=== PATIENT | female | born 1940 | race Caucasian/White ===

== ENCOUNTER 2023-03-02 08:21 | Outpatient (OUT) | payer MEDICARE, SELFPAY ==
[2023-03-02 08:51] LABS: Basophils Percent Auto 0.5 % (0.2-2.0); Eosinophils Absolute Auto 0.1 10^3/uL (0.0-0.7); Eosinophils Percent Auto 2.2 % (0.9-7.0); Hematocrit 39.8 % (36.0-48.0); Hemoglobin 13.1 g/dL (12.0-16.0); Immature Granulocytes Abs Auto 0.03 10^3/uL (0.00-0.03); Immature Granulocytes Pct Auto 0.5 % (0.0-0.5); Lymphocytes Absolute Auto 1.7 10^3/uL (1.2-3.8); Lymphocytes Percent Auto 29.2 % (20.5-60.0); Mean Corpuscular HGB Conc 32.9 g/dL (29.9-35.2); Mean Corpuscular Hemoglobin 31.4 pg (26.7-34.0); Mean Corpuscular Volume 95.4 fL (81.0-99.0); Mean Platelet Volume 9.2 fL (9.5-13.5); Monocytes Absolute Auto 0.4 10^3/uL (0.3-0.8); Monocytes Percent Auto 6.5 % (1.7-12.0); Neutrophils Absolute Auto 3.6 10^3/uL (1.4-6.5); Neutrophils Percent Auto 61.1 % (43.0-75.0); Platelet Count 237 10^3/uL (150-450); Red Blood Count 4.17 10^6/uL (4.20-5.40); Red Cell Distribution Width 11.9 % (11.0-15.0); White Blood Count 5.9 10^3/uL (4.0-11.0)
[2023-03-02 10:54] LABS: Microalbumin Urine Random <1.3 mg/dL (<=30.0)
[2023-03-02 12:14] LABS: Alanine Aminotransferase 21 U/L (14-59); Albumin Globulin Ratio 1.1; Albumin Level 3.8 g/dL (3.4-5.0); Alkaline Phosphatase 51 U/L (46-116); Anion Gap 10.9; Aspartate Amino Transferase 13 U/L (15-37); BUN Creatinine Ratio 28.2; Bilirubin Total 0.3 mg/dL (0.2-1.0); Calcium 10.3 mg/dL (8.5-10.1); Carbon Dioxide 30.9 mmol/L (21.0-32.0); Chloride 102 mmol/L (98-107); Chol HDL Ratio 3.2; Cholesterol 142 mg/dL (<=200); Estimated GFR (African America >60 (>=60); Estimated GFR (Non-African Ame >60 (>=60); Globulin 3.6 g/dL; Glucose 104 mg/dL (74-106); HDL Cholesterol 45 mg/dL (40-60); Potassium 4.8 mmol/L (3.5-5.1); Sodium 139 mmol/L (136-145); Total Protein 7.4 g/dL (6.4-8.2); Triglycerides 120 mg/dL (<=150)
[2023-03-02 13:25] LABS: Estimated Average Glucose 100 mg/dL; Glycohemoglobin A1C 5.1 % (4.5-6.2)
== END 2023-03-02 08:22 | disposition home or self-care (01) ==
LOC: LAB 08:21
PROVIDERS: PCP Internal Medicine; Visit Provider Internal Medicine
DX: E11.65 Type 2 diabetes mellitus with hyperglycemia (principal); E78.00 Pure hypercholesterolemia, unspecified; I10 Essential (primary) hypertension; E06.3 Autoimmune thyroiditis
CPT/HCPCS: 36415; 80053; 80061; 82043; 83036; 84443; 85025

== ENCOUNTER 2023-06-07 11:21 | Outpatient (OUT) | payer MEDICARE, SELFPAY ==
--- OUTSIDE RECORDS SUMMARY | 2023-06-07 11:24 | XMS_ITS | CCD ---
Author Name Unknown Address [address] [place] [address] Organization [facility] Care Team Providers Care Keg Washer Name Role Phone Unavailable Primary Care Provider UnavailSidney Ibrahim DO Primary Care Provider [phone] [place] Unavailable Sidney Moore DO Primary Care Provider JUS BLANK Admitting Unavailable ABHAY, JUS Price Attending Unavailable SIDNEY MOORE Primary Care Unavailable JUS BLANK Admitting Unavailable ABHAY, JUS Price Attending Unavailable SIDNEY MOORE Primary Care Unavailable NILL, DR CODY Admitting Unavailable NILL, DR CODY Attending Unavailable BALL, DR HILLIARD Primary Care Unavailable NILL, DR CODY Consulting Unavailable CROAK, JUS Admitting Unavailable CROAK, JUS Attending Unavailable BALL, DR HILLIARD Primary Care Unavailable CROAK, JUS Consulting Unavailable CROAK, JUS Admitting Unavailable CROAK, JUS Attending Unavailable BALL, DR HILLIARD Primary Care Unavailable CROAK, JUS Consulting Unavailable PATRICK, DR HILLIARD Admitting Unavailable BALL, DR HILLIARD Attending Unavailable BALL, DR HILLIARD Primary Care Unavailable BALL, DR HILLIARD Consulting Unavailable FERCHOEBLALI, DR JEANETTE Sosa Consulting Unavailable PATRICK, DR HILLIARD Admitting Unavailable BALL, DR HILLIARD Attending Unavailable BALL, DR HILLIARD Primary Care Unavailable BALL, DR HILLIARD Consulting Unavailable MICA, DR FRANCHESCA Marquez Consulting Unavailable PATRICK, DR HILLIARD Admitting Unavailable BALL, DR HILLIARD Attending Unavailable BALL, DR HILLIARD Primary Care Unavailable BALL, DR HILLIARD Consulting Unavailable MICA, DR FRANCHESCA Marquez Consulting Unavailable PATRICK, DR HILLIARD Admitting Unavailable BALL, DR HILLIARD Attending Unavailable BALL, DR HILLIARD Primary Care Unavailable BALL, DR HILLIARD Consulting Unavailable CHAR, DR JEANETTE Sosa Consulting Unavailable Sidney Moore Unavailable Unavailable Primary Care Provider UnavailDAMIÁN Schwarz Referring Unavailable ALEXANDER, MARCELLIA Referring Unavailable DAMIÁN ALEXANDER Attending Unavailable MARCIE BELLAMY Attending Unavailable Maximus Birch Unavailable [phone] Allergies Allergy Classification Reported Allergen(s) Allergy Type Date of Onset Reaction(s) Facility (7 sources) Penicillins; 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: [PENICILLINS] Drug Intolerance 05-31-19 19 Mental Status Change, Other: See Comments, Dizziness or Vertigo (13 sources) Penicillin Drug Allergy Unknown [facility] Other (13 sources) PHENOBARB Propensity to adverse reactions Headaches [facility] Other (13 sources) bee sting Propensity to adverse reactions Unknown [facility] Other (1 source) benzoin resin Drug Allergy 05-06-19 16 [facility] (1 source) Penicillins Drug allergy (disorder) 05-06-19 16 [facility] (3 sources) Penicillins Drug Intolerance 05-31-19 19 Mental Status Change, Other: See Comments (1 source) patient allergy list reviewed by nurse or physicia Propensity to adverse reactions 03-14-20 13 Comment:Done [facility] Other (1 source) Allergies Reconciled Propensity to adverse reactions Unknown [facility] Other Medications Current Medications Medication Drug Class(es) Dates Sig (Normalized) Sig (Original) acetaminophen 325 mg / HYDROcodone bitartrate 5 mg oral tablet (1 source) Opioid Agonist Start: 09-01-2021 End: 09-04-2021 HYDROcodone-aceta minophen (NORCO) 5-325 MG per tablet Indications: Post-op pain Take 1 tablet by mouth every 4 hours as needed for Pain for up to 3 days. Intended supply: 3 days. Take lowest dose possible to manage pain 18 tablet 0 09/01/2021 09/04/2021 Active Advair Diskus 250-50 MCG/DOSE (8 sources) take 1 puff(s) by inhalation twice daily Advair Diskus 250-50 MCG/DOSE 1 puff Inhalation Twice a day Active take 1 puff(s) by inhalation twi ce daily Advair Diskus 250-50 MCG/DOSE 1 puff Inhalation Twice a day for 90 days Active [id number] actuat albuterol 0.09 mg/actuat metered dose inhaler (13 sources) beta2-Adrenergic Agonist Start: 07-09-2020 take 2 puff(s) by inhalation every four hours as needed Albuterol Sulfate HFA 108 (90 Base) MCG/ACT 2 puffs Inhalation Every 4 hours as needed Jun, Active Start: 07-09-2020 take 2 puff(s) by in halation every four hours as needed Albuterol Sulfate HFA 108 (90 Base) MCG/ACT 2 puffs Inhalation Every 4 hours as needed Jun, Active Start: 07-09-2020 take 2 puff(s) by in halation every four hours as needed Albuterol Sulfate HFA 108 (90 Base) MCG/ACT 2 puffs Inhalation Every 4 hours as needed Jun, Active albuterol 0.833 mg/ml / ipratropium bromide 0.167 mg/ml inhalation solution (1 source) Anticholinergic, beta2-Adrenergic Agonist Start: 09-01-2021 End: 09-01-2021 ipratropium-albuterol (DUONEB) nebulizer solution 1 ampule aspirin 81 mg chewable tablet (20 sources) Platelet Aggregation Inhibitor, Nonsteroidal Anti-inflammatory Drug take 1 tablet by mouth every twenty-fou r hours Aspirin 81 81 MG 1 tablet Orally Once a day Active take 1 tablet by mouth once marie y Aspirin 81 81 MG 1 tablet Orally Once a day Active take 1 tablet by mouth once marie y aspirin, enteric coated (ASPIRIN, ENTERIC COATED) 81 mg EC tablet Take 81 mg by mouth once daily. 0 Active Comment on above: Take 81 mg by mouth once daily. Calcium (13 sources) Phosphate Binder, Calcium Calcium Active calcium carbonate 1500 mg oral tablet (2 sources) take 1 tablet by mouth once daily calcium carbonate 600 MG TABS tablet Take 1 tablet by mouth daily 0 Active calcium chloride 0.0014 meq/ml / potassium chloride 0.004 meq/ml / sodium chloride 0.103 meq/ml / sodium lactate 0.028 meq/ml injectable solution (1 source) Start: 09-02-19 lactated ringers infusion cephalexin 500 mg oral capsule (1 source) Cephalosporin Antibacterial Start: 01-16-20 End: 01-21-20 take 1 capsule by mouth three times daily cephALEXin (KEFLEX) 500 MG capsule Take 1 capsule by mouth 3 times daily for 5 days 15 capsule 0 01/15/2022 01/20/2022 Active ciprofloxacin 250 mg oral tablet (2 sources) Quinolone Antimicrobial Start: 12-30-19 take 1 tablet by mouth every twelve hours Ciprofloxacin HCl 250 MG 1 tablet Orally every 12 hrs for 7 days Dec, Active Start: 09-01-2021 End: 09-08-2021 take 1 tablet by mouth twice daily ciprofloxacin (CIPRO) 500 MG tablet Take 1 tablet by mouth 2 times daily for 7 days 14 tablet 0 09/01/2021 09/08/2021 Active colestipol hydrochloride 1000 mg oral tablet (17 sources) Bile Acid Sequestrant Start: 11-25-2022 take 0.5 tablet by mouth once daily Colestipol HCl 1 GM 1/2 tablets Orally Once a day for 90 days Nov, Active Start: 10-12-2019 take 1 tablet by rachid th every twenty-four hours Colestipol HCl 1 GM 1 tablets Orally Once a day for 90 days Sep, Active take 0.5 tablet by m outh once daily Colestipol HCl 1 GM TAKE ONE-HALF TABLET BY MOUTH ONCE DAILY for 90 Active COLESTIPOL HCL P O Take by mouth as needed 0 Active CRANBERRY CONCENTRATE PO (2 sources) take 2 tablets by mouth once daily CRANBERRY CONCENTRATE PO Take by mouth daily 2 tabs po 0 Active Cranberry preparation (13 sources) Non-Standardized Food Allergenic Extract, Non-Standardized Plant Allergenic Extract Cranberry Active dicyclomine hydrochloride 10 mg oral capsule (19 sources) Anticholinergic take 1 capsule by mouth every twelve hours Dicyclomine HCl 10 mg 1 capsules Orally bid Active Comment on above: Take 10 mg by mouth before meals and at bedtime. 1 ml diphenhydrAMINE hydrochloride 50 mg/ml cartridge (1 source) Histamine-1 Receptor Antagonist Start: End: diphenhydrAMINE (BENADRYL) injection 12.5 mg docusate sodium 50 mg / sennosides, care home 8.6 mg oral tablet (3 sources) Start: End: take 1 tablet by mouth once daily sennosides-docusate sodium (SENOKOT-S) 8.6-50 MG tablet Take 1 tablet by mouth daily for 14 days 14 tablet 0 01/15/2022 01/29/2022 Active Start: 09-01-2021 take 8.6-50 mg by [facility] once at bedtime senna-docusate (SENOKOT S) 8.6-50 MG per tablet Take 1 tablet by mouth in the morning and at bedtime 30 tablet 0 09/01/2021 Active esomeprazole 40 mg delayed release oral capsule (20 sources) Proton Pump Inhibitor take 1 capsule by mouth every twenty-four hours NexIUM 40 MG 1 capsule Orally Once a day Active take 1 capsule by mo [facility] once daily, then take 6 capsules by mouth in the morning esomeprazole (NEXIUM) 20 mg capsule Take 20 mg by mouth DAILY (6 AM). 0 Active esomeprazole Mag nesium (NEXIUM) 20 MG PACK Take 20 mg by mouth daily as needed 2 po 0 Active Comment on above: Take 20 mg by mouth DAILY (6 AM). Samia-C (13 sources) Samia-C Active Estradiol (1 source) Estrogen End: 09-02-19 22 Estradiol (ESTRACE PO) Take by mouth 0 09/01/2021 Discontinued (Stop Taking at Discharge) fluticasone (13 sources) Corticosteroid Flonase Active 60 actuat fluticasone propionate 0.25 mg/actuat / salmeterol 0.05 mg/actuat dry powder inhaler (13 sources) Corticosteroid, beta2-Adrenergic Agonist take 1 puff(s) by inhalation twice daily Advair Diskus 250-50 MCG/ACT 1 puff Inhalation Twice a day for 90 days Active take 1 puff(s) by inhalation twi ce daily Advair Diskus 500-50 MCG/ACT 1 puff Inhalation Twice a day Active take 1 puff(s) by inhalation twi ce daily fluticasone-salmeterol (ADVAIR DISKUS) 100-50 mcg/dose inhaler Inhale 1 Puff as instructed twice daily. 0 Active take 2 puff(s) by inhalation onc e daily fluticasone-salmeterol (ADVIAR) 100-50 MCG/ACT AEPB diskus inhaler Inhale 2 puffs into the lungs daily 0 Active take 1 puff(s) by inhalation twi ce daily fluticasone-salmeterol (ADVAIR DISKUS) 100-50 mcg/dose dsdv Inhale 1 Puff as instructed twice daily. 0 Active Comment on above: Inhale 1 Puff as ins tructed twice daily. hydroCHLOROthiazide 50 mg / triamterene 75 mg oral tablet (20 sources) Potassium-sparing Diuretic, Thiazide Diuretic take 1 tablet by mouth every twenty-four hours Triamterene-HCTZ 75-50 MG 1 tablet in the morning Orally Once a day Active Comment on above: Take 1 tablet by rachid th once daily. ibuprofen 600 mg oral tablet (2 sources) Nonsteroidal Anti-inflammatory Drug Start: 2021 take 1 tablet by mouth every six hours as needed for pain ibuprofen (ADVIL;MOTRIN) 600 MG tablet Take 1 tablet by mouth every 6 hours as needed for Pain 30 tablet 0 09/01/2021 Active labetalol (NORMODYNE;TRANDATE) injection syringe 10 mg (1 source) Start: 2021 labetalol (NORMODYNE;TRANDATE) injection syringe 10 mg 10 ml lidocaine hydrochloride 10 mg/ml injection (1 source) Antiarrhythmic, Amide Local Anesthetic Start: 2021 End: 2021 lidocaine PF 1 % injection 1 mL lisinopril 20 mg oral tablet (20 sources) Angiotensin Converting Enzyme Inhibitor take 1 tablet by mouth every twenty-four hours Lisinopril 20 MG 1 tablet Orally Once a day Active Comment on above: Take 20 mg by mouth once daily. magnesium gluconate 550 mg oral tablet (2 sources) magnesium 30 MG tablet Take by mouth daily 0 Active meperidine hydrochloride 50 mg/ml injectable solution (1 source) Opioid Agonist Start: 2021 meperidine (DEMEROL) injection 12.5 mg 2 ml midazolam 1 mg/ml injection (1 source) Benzodiazepine Start: 2021 End: 2021 midazolam PF (VERSED) injection 2 mg montelukast 10 mg oral tablet (20 sources) Leukotriene Receptor Antagonist Start: 2020 take 1 tablet by mouth every twenty-four hours Montelukast Sodium 10 MG 1 tablet Orally Once a day Apr, Active Comment on above: Take 10 mg by mouth daily at bedtime. 1 ml morphine sulfate 2 mg/ml cartridge (1 source) Opioid Agonist Start: 2021 morphine (PF) injection 2 mg Multiple Vitamins-Minerals (THERAPEUTIC MULTIVITAMIN-MINERALS) tablet (2 sources) take 2 tablets by mouth once daily Multiple Vitamins-Minerals (THERAPEUTIC MULTIVITAMIN-MINERAL S) tablet Take 2 tablets by mouth daily 0 Active Multivitamin preparation (13 sources) Multivitamin Act reuben ondansetron 4 mg disintegrating oral tablet (5 sources) Serotonin-3 Receptor Antagonist Start: 2021 take 1 tablet by mouth three times daily as needed for nausea ondansetron (ZOFRAN-ODT) 4 MG disintegrating tablet Take 1 tablet by mouth 3 times daily as needed for Nausea or Vomiting 21 tablet 0 01/15/2022 Active Start: 09-01-2021 take 1 tablet by rachid th every eight hours as needed for nausea ondansetron (ZOFRAN ODT) 4 MG disintegrating tablet Take 1 tablet by mouth every 8 hours as needed for Nausea or Vomiting 15 tablet 0 09/01/2021 Active Start: 09-01-2021 End: 09-01-2021 ondansetron (ZOFRAN) 4 MG/2M L injection Start: 09-01-2021 End: 09-01-2021 ondansetron (ZOFRAN) injecti on 4 mg Potassium (13 sources) Potassium Active 1 ml promethazine hydrochloride 25 mg/ml injection (1 source) Phenothiazine Start: 09-01-2021 promethazine (PHENERGAN) injection 6.25 mg 72 hr scopolamine 0.0139 mg/hr transdermal system (2 sources) Anticholinergic Start: 09-01-2021 End: 09-04-2021 scopolamine (TRANSDERM-SCOP) 1 MG/3DAYS transdermal patch Start: 09-01-2021 scopolamine (T RANSDERM-SCOP) transdermal patch 1 patch simvastatin 20 mg oral tablet (11 sources) HMG-CoA Reductase Inhibitor Start: 09-07-2022 take 1 tablet by mouth every twenty-four hours Simvastatin 20 MG 1 tablet in the evening Orally Once a day August, Active take 1 tablet by mouth once marie y simvastatin (ZOCOR) 20 MG tablet Take 20 mg by mouth nightly 0 Active 5 ml sodium chloride 9 mg/ml injection (6 sources) Start: 09-01-2021 0.9 % sodium c hloride infusion Start: 09-01-2021 sodium chlorid e flush 0.9 % injection 5-40 mL thyroid (care home) 60 mg oral tablet (20 sources) take 3 tablets by mo uth once, then take 2 tablets by mouth once daily Curtis Thyroid 60 MG 3 tablets every Wednesday, Wed, Wed and Sun take 2 tablets , and Wednesday Orally Once a day Active take 1 tablet by rachid th every twenty-four hours Curtis Thyroid 60 MG 1 tablet Orally Onc e a day for 90 days takes 180mg every other day 120 mg every other day Active ARMOUR THYROID 6 0 mg tab Take 60 mg by mouth. 0 Active take 2 tablets by mouth once ramón ly thyroid (ARMOUR) 60 MG tablet Take 60 mg by mouth daily 3 pills every other day, alternating with 2 pills 0 Active take 1 tablet by rachid th every twenty-four hours Curtis Thyroid 180 MG 1 tablet Orally Once a day Active Comment on above: Take 60 mg by mouth. VITAMIN D PO (2 sources) VITAMIN D PO Art e by mouth daily Vit d-Mannose 2 tabs daily 0 Active Completed/Discontinued Medications Medication Drug Class(es) Dates Sig (Normalized) Sig (Original) acetaminophen 325 mg / oxyCODONE hydrochloride 5 mg oral tablet (3 sources) Opioid Agonist Start: 09-01-2021 End: 09-01-2021 oxyCODONE-acetamino phen (PERCOCET) 5-325 MG per tablet azithromycin 250 mg oral tablet (8 sources) Macrolide Antimicrobial Start: 07-09-2022 Azithromycin 250 MG as directed Orally daily for 5 days Jun, Not-Taking cranberry fruit extract (CRANBERRY EXTRACT ORAL) (6 sources) cranberry fruit extract (CRANBERRY EXTRACT ORAL) Take 600 mg by mouth. 0 Active Comment on above: Take 600 mg by mouth . estrogens, conjugated (care home) 0.625 mg/ml vaginal cream (6 sources) Estrogen conjugated estrogens (PREMARIN) vaginal cream Use vaginally once each week. 0 Active Comment on above: Use vaginally once e ach week. 1 ml HYDROmorphone hydrochloride 1 mg/ml cartridge (2 sources) Opioid Agonist Start: 09-01-2021 End: 09-01-2021 HYDROmorphone (DILAUDID) 1 MG/ML injection Start: 05-09-2022 HYDROmorphone (DILAUDID) injection 0.5 mg modified 24 hr metFORMIN hydrochloride 500 mg extended release oral tablet (3 sources) Biguanide End: 07-22-2021 take 1 tablet by mouth once daily at breakfast metFORMIN ER (GLUMETZA) 500 mg 24 hr tablet Take 500 mg by mouth daily with breakfast. 0 07/22/2021 Discontinued (Discontinued by another Health Care Provider) take 1 tablet by rachid th every twenty-four hours metFORMIN HCl ER (MOD) 1000 MG 1 tablet with evening meal Orally Once a day Active Comment on above: Take 500 mg by mouth daily with breakfast. multivit,thx,calcium,iron, mins (MULTIVITAMIN AND MINERAL ORAL) (6 sources) multivit,thx,narcisa cium,iron ,mins (MULTIVITAMIN AND MINERAL ORAL) Take by mouth. 0 Active Comment on above: Take by mouth. phenazopyridine hydrochloride 100 mg oral tablet (2 sources) Start: 09-01-2021 End: 09-01-2021 phenazopyridine (PYRIDIUM) tablet 200 mg Start: 09-01-2021 End: 09-01-2021 phenazopyridine (PYRIDIUM) 1 00 MG tablet potassium gluconate 2.5 meq oral tablet (8 sources) Potassium 99 mg tab Take by mouth. 0 Active take 2 tablets by mouth once ramón ly potassium gluconate 550 (90 K) MG TABS tablet Take 550 mg by mouth daily 2 tabs po 0 Active Comment on above: Take by mouth. Problems Active Problems Problem Classification Problem Date Documented Date Episodic/Chronic Asthma (20 sources) Mild intermittent asthma; 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: [Mild intermittent asthma, uncomplicated] Onset: 0 Resolved: 2 Chronic Biliary tract disease (1 source) Postcholecystectomy syndrome Episodic Cancer of breast (1 source) Malignant neoplasm of female breast; 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: [Malignant neoplasm of breast (female), unspecified site] Onset: 5 Chronic Cancer of breast (11 sources) History of malignant neoplasm of breast; 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: [Personal history of malignant neoplasm of breast] Onset: 6 05-31-2018 Episodic Chronic obstructive pulmonary disease and bronchiectasis (11 sources) Acute exacerbation of chronic obstructive airways disease; 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: [Chronic obstructive pulmonary disease with (acute) exacerbation] Onset: 6 Chronic Diabetes mellitus with complications (20 sources) Type 2 diabetes mellitus with hyperglycemia; 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: [Type 2 diabetes mellitus with diabetic polyneuropathy] Onset: 2 Chronic Diabetes mellitus without complication (20 sources) Type 2 diabetes mellitus without complication; 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: [Type 2 diabetes mellitus without complications] Resolved: 0 Chronic Disorders of lipid metabolism (11 sources) Familial hypercholesterolemia; 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: [Hyperlipidemia, unspecified] Onset: 6 Chronic Diverticulosis and diverticulitis (2 sources) Diverticulitis of large intestine without perforation or abscess without bleeding; 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: [Diverticulitis of intestine, part unspecified, without perforation or abscess without bleeding] Onset: 8 Resolved: 0 Chronic Esophageal disorders (20 sources) Gastroesophageal reflux disease without esophagitis; 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: [Gastro-esophageal reflux disease without esophagitis] Onset: 2 Resolved: 2 Chronic Essential hypertension (11 sources) Essential (primary) hypertension; 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: [Unspecified essential hypertension] Onset: 4 Chronic Fracture of upper limb (2 sources) Displaced fracture of neck of scapula, right shoulder, subsequent encounter for fracture with routine healing; 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: [Displaced fracture of glenoid cavity of scapula, right shoulder, initial encounter for closed fracture] Onset: 1 Episodic Genitourinary symptoms and ill-defined conditions (4 sources) Unspecified urinary incontinence; 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: [Mixed incontinence] Onset: 2 Chronic Genitourinary symptoms and ill-defined conditions (6 sources) Nocturia; 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: [Dysuria] Onset: 2 Resolved: 2 Episodic Immunizations and screening for infectious disease (2 sources) Contact with and (suspected) exposure to other viral communicable diseases; 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: [Vaccination given] Resolved: 2 Episodic Nonmalignant breast conditions (3 sources) Fibrocystic change of left breast; 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: [Diffuse cystic mastopathy of left breast] Chronic Nutritional deficiencies (1 source) Vitamin D deficiency; 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: [Vitamin D deficiency, unspecified] Onset: 8 Chronic Osteoarthritis (4 sources) Primary osteoarthritis, right hand; 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: [Primary osteoarthritis, left hand] Onset: 2 Chronic Osteoporosis (1 source) Age-related osteoporosis without current pathological fracture; 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: [AGE-REL OSTEOPOR W/O CURR PATH FX] Onset: 2 Chronic Other aftercare (1 source) Long-term current use of drug therapy; 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: [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] Episodic Other diseases of veins and lymphatics (3 sources) Peripheral venous insufficiency; 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: [Venous insufficiency (chronic) (peripheral)] Episodic Other diseases of veins and lymphatics (1 source) Venous insufficiency (chronic) (peripheral) Episodic Other gastrointestinal disorders (13 sources) Irritable bowel syndrome with diarrhea; 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: [Irritable bowel syndrome with diarrhea] Chronic Other gastrointestinal disorders (1 source) Irritable bowel syndrome with constipation; 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: [Irritable bowel syndrome with constipation] Chronic Other inflammatory condition of skin (1 source) Seborrheic dermatitis, unspecified; 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: [Seborrheic dermatitis, unspecified] Episodic Other injuries and conditions due to external causes (1 source) Foreign body on external eye, part unspecified, right eye, initial encounter Episodic Other lower respiratory disease (2 sources) Other forms of dyspnea; 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: [OTHER FORMS OF DYSPNEA] Onset: 2 Episodic Other nervous system disorders (1 source) Postoperative pain ; 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: [Other acute postprocedural pain] Episodic Other nervous system disorders (1 source) Schuster's palsy; 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: [Schuster's palsy] Episodic Other nervous system disorders (1 source) Personal history of other diseases of the nervous system and sense organs; 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: [Personal history of other diseases of the nervous system and sense organs] Episodic Other nutritional; endocrine; and metabolic disorders (1 source) Morbid obesity; 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: [Morbid (severe) obesity due to excess calories] Onset: 0 Chronic Other nutritional; endocrine; and metabolic disorders (2 sources) Obese class II; 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: [Body mass index 35.0-35.9, adult] Onset: 6 Chronic Other nutritional; endocrine; and metabolic disorders (1 source) Body mass index 40+ - severely obese; 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: [Body Mass Index 40.0-44.9, adult] Onset: 6 Chronic Other nutritional; endocrine; and metabolic disorders (1 source) Body mass index (BMI) 40.0-44.9, adult; 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: [Body mass index (BMI) 40.0-44.9, adult] Onset: 6 Chronic Other screening for suspected conditions (not mental disorders or infectious disease) (1 source) Abnormal findings on diagnostic imaging of other specified body structures; 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: [Abnormal findings on diagnostic imaging of other specified body structures] Chronic Other screening for suspected conditions (not mental disorders or infectious disease) (8 sources) Patient encounter status; 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: [Encounter for screening mammogram for malignant neoplasm of breast] Onset: 8 Episodic Other skin disorders (1 source) Nonscarring hair loss, unspecified; 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: [Nonscarring hair loss, unspecified] Episodic Other upper respiratory infections (3 sources) Acute maxillary sinusitis, unspecified; 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: [Acute maxillary sinusitis] Episodic Otitis media and related conditions (1 source) Other specified disorders of Eustachian tube, right ear Episodic Prolapse of female genital organs (5 sources) Cystocele, midline; 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: [Uterovaginal prolapse, unspecified] Onset: 2 Resolved: 1 Chronic Residual codes; unclassified (10 sources) Sleep apnea; 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: [Sleep apnea, unspecified] Chronic Residual codes; unclassified (15 sources) Obstructive sleep apnea syndrome; 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: [Obstructive sleep apnea (adult) (pediatric)] Onset: 8 Chronic Residual codes; unclassified (6 sources) Obstructive sleep apnea (adult) (pediatric); 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: [JUNIE (obstructive sleep apnea) G47.33] Onset: 1 Resolved: 2 Chronic Residual codes; unclassified (3 sources) Asymptomatic menopausal state; 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: [ASYMPTOMATIC MENOPAUSAL STATE] Onset: 2 Episodic Secondary malignancies (1 source) Secondary malignant neoplasm of breast; 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: [Secondary malignant neoplasm of breast] Onset: 5 Chronic Spondylosis; intervertebral disc disorders; other back problems (2 sources) Spondylosis without myelopathy or radiculopathy, lumbar region; 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: [Lumbosacral spondylosis without myelopathy] Chronic Substance-related disorders (1 source) Nicotine dependence, cigarettes, in remission; 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: [Nicotine dependence, cigarettes, in remission] Chronic Systemic lupus erythematosus and connective tissue disorders (1 source) Autoimmune disease; 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: [Autoimmune disease, not elsewhere classified] Onset: 0 Chronic Thyroid disorders (15 sources) Hypothyroidism, unspecified; 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: [Autoimmune thyroiditis] Onset: 2 Chronic Unclassified (1 source) CONTACT W/AND (SUSP) EXPOS COVID-19; 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: [CONTACT W/AND (SUSP) EXPOS COVID-19] Onset: 2 Unclassified (1 source) Special screening for malignant neoplasms, colon; 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: [Special screening for malignant neoplasms, colon] Onset: 5 Unclassified (1 source) Long-term current use of drug therapy; 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: [Long-term (current) use of other medications] Onset: 7 Unclassified (1 source) Diverticulosis of colon; 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: [Diverticulosis of colon] Onset: 8 Unclassified (1 source) Diverticulitis of colon with hemorrhage; 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: [Diverticulitis of colon with hemorrhage] Onset: 8 Unclassified (1 source) Uterovaginal prolapse, incomplete; 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: [Uterovaginal prolapse, incomplete] Onset: 6 Unclassified (1 source) Mixed incontinence urge and stress; 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: [Mixed incontinence urge and stress] Onset: 3 Unclassified (1 source) Other screening mammogram; 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: [Other screening mammogram] Onset: 6 Unclassified (1 source) Body mass index 38.0-38.9, adult; 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: [Body mass index 38.0-38.9, adult] Onset: 6 Unclassified (1 source) Lyisundlni-yrgfwbg-pfzom ssis, combined [DTP] [DtaP]; 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: [Cxuhtcnysf-vkvebqu-tzii ussis, combined [DTP] [DtaP]] Onset: 7 Unclassified (1 source) Other specified cough; 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: [Other specified cough] Onset: 9 Urinary tract infections (2 sources) Urinary tract infection, site not specified; 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: [Acute cystitis without hematuria] Episodic Past or Other Problems Problem Classification Problem Date Documented Da te Episodic/Chronic Abdominal pain (1 source) Left lower quadrant pain; 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: [Left lower quadrant pain] Onset: 02-10-2018 Episodic Allergic reactions (1 source) Allergic contact dermatitis due to plants, except food; 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: [Allergic contact dermatitis due to plants, except food] Onset: 12-21-2017 Episodic Bacterial infection; unspecified site (1 source) Bacterial infectious disease; 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: [Bacterial infection, unspecified, in conditions classified elsewhere and of unspecified site] Onset: 12-09-2015 Episodic Chronic ulcer of skin (1 source) Chronic ulcer of skin; 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: [Non-pressure chronic ulcer of skin of other sites limited to breakdown of skin] Resolved: 10-04-2019 Chronic Esophageal disorders (3 sources) Esophageal disorders; 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: [Gastro-esophageal reflux disease with esophagitis, without bleeding] Intracranial injury (1 source) Concussion with no loss of consciousness; 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: [Concussion without loss of consciousness, initial encounter] Onset: 09-01-2016 Episodic Malaise and fatigue (1 source) Other malaise and fatigue; 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: [Other malaise and fatigue] Onset: 04-30-2016 Episodic Menopausal disorders (1 source) Other primary ovarian failure; 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: [Other primary ovarian failure] Resolved: 03-03-2022 Chronic Nonspecific chest pain (6 sources) Other chest pain; 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: [Chest pain] Onset: 01-09-2014 Resolved: 03-03-2022 Episodic Other aftercare (1 source) 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; 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: [[employer]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] Onset: 07-02-2021 Episodic Other and unspecified benign neoplasm (4 sources) Benign lipomatous neoplasm of skin and subcutaneous tissue of trunk; 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: [ZION LIPOMAT NEOPLSM SKIN SUBQ TRUNK] Onset: 06-25-2021 Episodic Other and unspecified benign neoplasm (1 source) Lipoma of skin and subcutaneous tissue of trunk; 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: [Benign lipomatous neoplasm of skin and subcutaneous tissue of trunk] Resolved: 03-03-2022 Episodic Other female genital disorders (1 source) Hypertrophy of uterus; 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: [Hypertrophy of uterus] Onset: 03-14-2015 Episodic Other gastrointestinal disorders (1 source) Diarrhea; 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: [Diarrhea] Onset: 02-10-2018 Episodic Other injuries and conditions due to external causes (1 source) History of fall; 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: [History of falling] Resolved: 03-03-2022 Episodic Other nervous system disorders (1 source) Other acute postprocedural pain; 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: [Other acute postprocedural pain] Onset: 09-01-2021 Episodic Other non-traumatic joint disorders (4 sources) Pain in joints of right hand; 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: [PAIN IN JOINTS OF RIGHT HAND] Onset: 10-28-2021 Episodic Other non-traumatic joint disorders (1 source) Pain in joints of left hand; 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: [PAIN IN JOINTS OF LEFT HAND] Onset: 10-31-2021 Episodic Other nutritional; endocrine; and metabolic disorders (1 source) Obesity; 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: [Obesity, unspecified] Resolved: 02-16-2022 Chronic Residual codes; unclassified (9 sources) Family history of malignant neoplasm of breast in first degree relative; 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: [Family history of malignant neoplasm of breast] Onset: 05-31-2018 05-31-2018 Episodic Residual codes; unclassified (6 sources) Family history of malignant neoplasm of ovary; 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: [Family history of malignant neoplasm of ovary] Onset: 05-31-2018 05-31-2018 Episodic Screening and history of mental health and substance abuse codes (3 sources) Personal history of nicotine dependence; 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: [Encounter for screening for depression] Onset: 09-01-2016 Resolved: 02-16-2022 Episodic Sprains and strains (1 source) Strain of muscle and/or tendon of thigh; 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: [Strain of muscle, fascia and tendon of the posterior muscle group at thigh level, left thigh, initial encounter] Onset: 08-02-2017 Episodic Unclassified (1 source) Acute candidiasis of vulva and vagina; 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: [Acute candidiasis of vulva and vagina] Resolved: 10-04-2020 Results Test Name Value Interpretation Reference Range Facility Urinalysis - DIPSTICKon 09-0 Appearance (U) clear [employer] Other Bilirubin Ql (U) Negative [employer] Other Color (U) yellow [employer] Other Glucose Ql (U) Negative [employer] Other Hemoglobin Ql (U) Negative [employer] Other Ketones Ql (U) Negative [place] [employer] [employer] Other Leukocyte esterase Test strip Ql (U) moderate [employer] Other Nitrite Ql (U) Negative [employer] Other pH (U) 7.0 [pH] [employer] Other Protein Ql (U) Negative [employer] Other Specific gravity (U) [Rel density] 1.000 [employer] Other Urobilinogen (U) [Mass/Vol] 0.5 mg/dL [place] [employer] Other Urinalysis - DIPSTICK [employer] Other Urinalysis - DIPSTICKon 08-0 Appearance (U) clear [employer] Other Bilirubin Ql (U) Negative [employer] Other Color (U) yellow [employer] Other Glucose Ql (U) Negative [employer] Other Hemoglobin Ql (U) Negative [employer] Other Ketones Ql (U) Negative [employer] Other Leukocyte esterase Test strip Ql (U) trace [employer] Other Nitrite Ql (U) Negative [employer] Other pH (U) 7 [pH] [employer] Other Protein Ql (U) Negative [employer] Other Specific gravity (U) [Rel density] 1.000 [employer] Other Urobilinogen (U) [Mass/Vol] 0.2 mg/dL [employer] Other Urinalysis - DIPSTICK [employer] Other CNCOon 08-14-2022 [facility] HNO ID: [id number] Author: Mammography Coordinator Service: ? Author Type: Physician Type: Letter Filed: 08/17/2022 11:37 PM Note Text: August 17, 2022 PID: [id number] Jessica Aguilera Coni [address] [place] [address] Dear Ms. Lao, We are pleased to inform you that the results of your recent breast imaging exam on 08/14/2022 are normal. Early detection of cancer is very important. We also understand recommendations regarding breast cancer screening are controversial. Please discuss with your primary care provider which strategy is best for you and whether a mammogram is right for you. Your imaging studies and report will be kept on file at as part of your permanent medical record and are available for your continuing care. Thank you for allowing us to help in meeting your health care needs. Sincerely, Dr. Molina Interpreting Radiologist [facility] (Normal over 40) Normal [facility] CNOVon 08-14-2022 CNOV Office Visit ([facility] ) JESSICA LAO ([id number]) 1940 F Date Time Provider Department 08/14/22 11:00 AM DAM[facility] During your visit today, we recorded the following information about you: Weight 88.9 kg Argelia Muhammad Ma 08/14/2022 11:03 AM Signed Last mammogram on: 07/22/21 Results: see report Is the patient active on [employer] Yes Electronically Signed By: Argelia Muhammad Ma In Department: [facility] REVIEW OF PATIENT HISTORY: OB History T2 L2 SAB0 IAB0 Ectopic0 Multiple0 Live Births0 Comment: Menarche: 12; Age at 1st : 19; Post menopausal FAMILY HISTORY Problem Relation Age of Onset Ovarian cancer Mother 96 Breast Cancer Sister 61 Osteoporosis Sister 72 Cervical Cancer Maternal Aunt Uterine Cancer Maternal Aunt PAST MEDICAL HISTORY Diagnosis Date Diabetes (HCC) Hyperlipidemia Hypertension Hypothyroidism Osteoporosis PAST SURGICAL HISTORY Procedure Laterality Date BREAST BIOPSY HX Left CHOLECYSTECTOMY MASTECTOMY HX Right 1971 TONSILLECTOMY HX Social History Tobacco Use Smoking status: Former Types: Cigarettes Quit date: 04/1970 Years since quittin.3 Smokeless tobacco: Never Substance Use Topics Alcohol use: No Comment: very rare Drug use: No Damián Alexander APRN.CNP 08/14/2022 12:46 PM Signed moMEDICAL BREAST PATIENT NAME: Jessica Lao REASON FOR VISIT: Annual Exam and Mammogram HISTORY of PRESENT ILLNESS: Jessica Lao is a 82 year old year old postmenopausal Retired female with history of Right breast cancer diagnosed in 1970 returns to the Breast [facility] today her sister (Briana) for annual exam and mammogram. She is an established patient in Breast Center who was last seen on 07/22/21 for annual exam and mammogram with negative findings. She has loss 38 lbs with diet and exercise changes. She had hysterectomy/bladder surgery and recovered with no problems. She denies any breast masses, pain, skin changes or nipple discharge. She denies any new family medical problems. In 1970, she was diagnosed with right breast cancer. She underwent mastectomy. She didn't require any chemotherapy, XRT or endocrine therapy History pertaining to prior breast biopsies, genetic reports, pathology reports, treatment summaries, personal, social and family history has been extracted from my note dated 07/22/21. Her vitamin D level was No results found for: VITD25. She takes mvi. BMD: Yes, per patient report in 2018; results: Osteoporosis PERSONAL BREAST HISTORY: Past breast history (prior to this encounter) is as follows: Breast biopsy: Yes, 1970 Breast cysts: No Breast surgery: Yes, Right mastectomy and left excisional biopsy-benign Breast cancer: Yes, treated as above CANCER SURVEILLANCE: Mammograms: Yes, 07/22/21 results-Negative Breast MRI: No Colonoscopy: Yes, per patient report in 2017, showing diverticulitis RISK FACTORS FOR BREAST CANCER: Age at the onset of menses: 12 years of age. P: 2 Age at the of first child: 19 years of age. She breast fed. Age at menopause: 45 years of age. Post-menopausal hormone therapy: Yes, currently using estrace cream She has an intact uterus and ovaries She is postmenopausal and does not use control. History of Mantle Radiation prior to the age of 28: No Obesity: Yes, Current Weight: 196 lbs Mammographic density: There are scattered fibroglandular densities Personal History of Benign Atypical Breast Biopsy: No Alcohol use: Rare PAST MEDICAL HISTORY: PAST MEDICAL HISTORY Diagnosis Date Diabetes (HCC) Hyperlipidemia Hypertension Hypothyroidism Osteoporosis Patient specifically denies history of: DVT, PE, migraine headaches WITH AURA, migraine headaches without aura, abnormal uterine bleeding, abnormal uterine biopsies, osteopenia and +osteoporosis. PAST SURGICAL HISTORY: PAST SURGICAL HISTORY Procedure Laterality Date BREAST BIOPSY HX Left CHOLECYSTECTOMY MASTECTOMY HX Right 1971 TONSILLECTOMY HX SOCIAL HISTORY: Social History Tobacco Use Smoking status: Former Types: Cigarettes Quit date: 04/1970 Years since quittin.3 Smokeless tobacco: Never Substance Use Topics Alcohol use: No Comment: very rare Drug use: No Caffeine intake: 2 cups / day Exercise: Never FAMILY HISTORY: Reviewed: 08/14/22 Family history of breast cancer: Sister ( Briana) dx 61-alive and well Family history of ovarian cancer: Mother dx 96- Number of sisters: 1 Number of maternal aunts: 3 Number of paternal aunts: 0 Ashkenazi Ancestry: no Has Patient had Genetic Testing? No Other Cancer: Aunt (Gaurang) dx cervical cancer-alive and well; Aunt (Emilee) dx uterine cancer decased There is no family history of prostate, colo (more content not included)... Normal [facility] SCREENING W TOMOon 08-14 CHRISTINA SCREENING W LEANNA * * *Final Report* * * DATE OF EXAM: Aug 14 2022 12:15PM [facility] [id number] - CHRISTINA SCREENING W LEANNA / PROCEDURE REASON: Encounter for screening mammogram for breast cancer * * * * Physician Interpretation * * * * RESULT: #[id number] - [facility] SCREENING W LEANNA BILATERAL DIGITAL SCREENING MAMMOGRAM TOMOSYNTHESIS WITH CAD: 08/14/2022 HISTORY: Encounter For Screening Mammogram For Breast Cancer / Screening Mammogram-Patient reports NO symptoms. RESULT: TECHNIQUE: The study was acquired using full field digital technology and interpreted from soft copy. Digital Breast Tomosynthesis (DBT) images were obtained and used to assist in the interpretation of this examination. Current study was also evaluated with a Computer Aided Detection (CAD). Comparison is made to exams dated: 07/22/2021 mammogram, 07/16/2020 mammogram, 07/04/2019 mammogram, 05/31/2018 mammogram - [facility], and 07/27/2017 mammogram. The tissue of both breasts is predominantly fatty. There are benign post operative findings in the right breast. No significant masses, calcifications, or other findings are seen in either breast. There has been no significant interval change. IMPRESSION: BENIGN FINDING There is no mammographic evidence of malignancy. A 1 year screening mammogram is recommended. Kwan Molina M.D. pt/jovanna:08/14/2022 12:34:05 [employer]): RT Benjie(R)(M), [facility] letter sent: Normal over 40 Mammogram BI-RADS: 2 Benign finding Multiple national specialty organizations have released breast cancer screening guidelines for women at average risk for developing breast cancer - guidelines that are based on both evidence and opinion, yet differ on when to start and how often to screen for breast cancer. With representation from Breast Imaging, Internal Medicine, Women's Health, Family Medicine, and Medical/Surgical Oncology, the has carefully reviewed the data and reached the following consensus: 1) All women should engage in shared decision-making with their providers to decide when to start and how often to screen; 2) All women should have the opportunity to start screening mammography at age 40; 3) For women ages 45-55, we recommend annual screening mammograms; 4) For women ages 55 and over, we support both the transition from an annual to a biennial interval if this aligns more with patient's values and preferences, or continuation with annual screening; 5) All women should discuss with their providers when to stop screening mammograms. Rn Radiation Oncology: Jovanna Transcribe Date/Time: Aug 14 2022 12:02P Dictated by: KWAN MOLINA MD This examination was interpreted and the report reviewed and electronically signed by: KWAN MOLINA MD on Aug 14 2022 12:34PM EST [id number] Normal [facility] GLYCOHEMOGLOBIN A1Con 2021 ADA RECOMMENDATION SEE BELOW Normal [facility] Comment on above: Result Comment: ADA RECOMMENDED LIMIT 4.0 - 6.0 ADA THERAPEUTIC TARGET < 7.0 ACTION SUGGESTED > 7.0 Performed By: #### A NARF #### [facility] [address] [address] [address] Ann Newton Glucose [Mass/Vol] 123 mg/dL Normal [facility] Comment on above: Performed By: #### A NARF #### [facility] [address] [address] [address] Ann Newton HbA1c (Bld) [Mass fraction] 5.9 % Normal 4.5-6.2 [facility] Comment on above: Performed By: #### A NARF #### [facility] [address] [place] [address] Dr. Ann Newton NM STRESS/REST MULTIon 03-05 NM STRESS/REST MULTI Patient: JESSICA LAO Exam Date: 03/05/2022 : 1940 Gender:F Ordering : DR SIDNEY MOORE D.O. Admission #: [id number] Family : Order #: [id number] CLICK HERE TO VIEW EXAM RADIOLOGY REPORT PROCEDURE: RADIONUCLIDE IMAGING STRESS/REST MULTI COMPARISON: None. INDICATIONS: Chest pain, dyspnea on exertion TECHNIQUE: Exam Description: Stress/Rest one day protocol gated SPECT Rest Imagin.4 mCi Tc-99m Cardiolite IV on 03/05/2022 Stress Imaging 30.4 mCi Tc-99m Cardiolite IV on 03/05/2022 Exercise Protocol: 0.4 mg Lexiscan given IV Heart Rate (bpm): Rest: 66 Max: 98 PMHR: 71 Blood Pressure: Rest: 138/80 Max: 138/80 Symptoms: Rest and peak stress ECG findings were normal and the exercise portion of the study was normal per attending physician Dr. Zion Moore . For more details please see separate cardiac stress test report. FINDINGS: QUALITY OF STUDY: Good. PERFUSION DEFECT: None. LOCATION: N/A SIZE: N/A. SEVERITY: N/A. TYPE: N/A. WALL MOTION: Normal. LV SIZE: Normal. 74 mL. TID / TCD: None; 0.8 LVEF: Normal. Calculated EF 75%. SUMMARY: Myocardial perfusion imaging study is NORMAL. CONCLUSION: 1. No reversible ischemia 2. Normal exercise test Dictated by: Franchesca Nino MD on 03/05/2022 at 14:37 Approved by: Franchesca Nino MD on 03/05/2022 at 14:42 Normal [facility] T3, TOTAL (TRIIODOTHYRONINE) on 03-03-2022 T3, TOTAL 154 ng/dL Normal 71-180 [facility] Comment on above: Performed By: #### A NARF #### [facility] [address] [place] [address] Dr. Ann Newton CBC AUTO DIFFon 03-02-2022 BASO # 0.0 103/ul Normal 0.0-0.1 [facility] Comment on above: Performed By: #### R F #### [facility] [address] [place] [address] Dr. Ann Newton Basophils/100 WBC (Bld) 0.4 % Normal 0.2-2.0 [facility] Comment on above: Performed By: #### R F #### [facility] [address] [place] [address] Dr. Ann Newton EO # 0.1 103/ul Normal 0.0-0.7 [facility] Comment on above: Performed By: #### R F #### [facility] [address] [place] [address] Dr. Ann Newton Eosinophils/100 WBC (Bld) 1.5 % Normal 0.9-7.0 [facility] Comment on above: Performed By: #### R F #### [facility] [address] [place] [address] Dr. Ann Newton Erythrocyte distribution width (RBC) [Ratio] 12.3 % Normal 11.0-15.0 [facility] Comment on above: Performed By: #### R F #### [facility] [address] [place] [address] Dr. Ann Newton Hematocrit (Bld) [Volume fraction] 36.9 % Normal 36.0-48.0 [facility] Comment on above: Performed By: #### R F #### [facility] [address] [place] [address] Dr. Ann Newton Hemoglobin (Bld) [Mass/Vol] 12.6 g/dL Normal 12.0-16.0 [facility] Comment on above: Performed By: #### R F #### [facility] [address] [place] [address] Dr. Ann Newton IG # 0.02 10e3/ul Normal 0.00-0.03 [facility] Comment on above: Performed By: #### R F #### [facility] [address] [place] [address] Dr. Ann Newton IG % 0.4 % Normal 0.0-0.5 [facility] Comment on above: Performed By: #### R F #### [facility] [address] [place] [address] Dr. Ann Newton LYMPH # 1.5 103/ul Normal 1.2-3.8 [facility] Comment on above: Performed By: #### R F #### [facility] [address] [place] [address] Dr. Ann Newton Lymphocytes/100 WBC (Bld) 27.9 % Normal 20.5-60.0 [facility] Comment on above: Performed By: #### R F #### [facility] [address] [place] [address] Dr. Ann Newton MANUAL DIFF REQ NO Normal [facility] Comment on above: Performed By: #### R F #### [facility] [address] [place] [address] Dr. Ann Newton MCH (RBC) [Entitic mass] 31.6 pg Normal 26.7-34.0 [facility] Comment on above: Performed By: #### R F #### [facility] [address] [place] [address] Dr. Ann Newton MCHC (RBC) [Mass/Vol] 34.1 g/dL Normal 29.9-35.2 [facility] Comment on above: Performed By: #### R F #### [facility] [address] [place] [address] Dr. Ann Newton MCV (RBC) [Entitic vol] 92.5 fL Normal 81.0-99.0 [facility] Comment on above: Performed By: #### R F #### [facility] [address] [place] [address] Dr. Ann Newton MONO # 0.3 103/ul Normal 0.3-0.8 [facility] Comment on above: Performed By: #### R F #### [facility] [address] [place] [address] Dr. Ann Newton Monocytes/100 WBC (Bld) 5.8 % Normal 1.7-12.0 [facility] Comment on above: Performed By: #### R F #### [facility] [address] [place] [address] Dr. Ann Newton NEUT # 3.5 103/ul Normal 1.4-6.5 [facility] Comment on above: Performed By: #### R F #### [facility] [address] [place] [address] Dr. Ann Newton Neutrophils/100 WBC (Bld) 64.0 % Normal 43.0-75.0 [facility] Comment on above: Performed By: #### R F #### [facility] [address] [place] [address] Dr. Ann Newotn Platelet mean volume (Bld) [Entitic vol] 9.3 fL Critically low 9.5-13.5 [facility] Comment on above: Performed By: #### R F #### [facility] [address] [place] [address] Dr. Ann Newton PLT 221 103/ul Normal 150-450 [facility] Comment on above: Performed By: #### R F #### [facility] [address] [place] [address] Dr. Ann Newton RBC 3.99 106/ul Critically low 4.20-5.40 [facility] Comment on above: Performed By: #### R F #### [facility] [address] [place] [address] Dr. Ann Newton WBC 5.5 103/ul Normal 4.0-11.0 [facility] Comment on above: Performed By: #### R F #### [facility] [address] [address] [address] Ann Newton ECHOCARDIO M/2D COMPLETEon 1 05-02-2021 ECHOCARDIO M/2D COMPLETE Patient: JESSICA LAO Exam Date: 03/02/2022 : 1940 Gender:F Ordering : DR SIDNEY MOORE D.O. Admission #: [id number] Family : Order #: [id number] CLICK HERE TO VIEW EXAM ECHOCARDIOGRAM REPORT PROCEDURE: CARDIO PULMONARY ECHOCARDIO M/2D COMP INDICATIONS: Chest pain, HTN COMPARISON: None. DESCRIPTION: COMPLETE ECHOCARDIOGRAM Real-time transthoracic echocardiography with 2D, M-mode, spectral and color flow Doppler performed. QUALITY: Technical quality was adequate. LEFT VENTRICLE: Normal chamber size. Moderate concentric left ventricular hypertrophy. Global left ventricular systolic function is normal. LV EF: Visual estimation of left ventricular ejection fraction is 65% DIASTOLIC: Grade I diastolic dysfunction. ATRIAL SEPTUM: LEFT ATRIUM: Moderate dilatation. RIGHT ATRIUM: Normal chamber size. RIGHT VENTRICLE: Normal chamber size. Normal right ventricular systolic function. TRICUSPID VALVE: Normal mobility and thickness. No stenosis with trivial regurgitation. No evidence of pulmonary hypertension. RVSP 29 mmHg MITRAL VALVE: Normal mobility and thickness. No mitral valve prolapse. No evidence of mitral valve stenosis. There is no mitral annular calcification. Trivial mitral regurgitation. AORTIC VALVE: Grossly normal. Normal leaflet mobility. Aortic valve sclerosis is noted. No evidence of aortic valve stenosis. DVI 0.7. Trivial aortic regurgitation. AORTIC ROOT: Normal diameter and appearance. PULMONIC VALVE: Normal thickness and mobility. No stenosis. No regurgitation. PERICARDIUM: No evidence of pericardial effusion. IVC: Collapses with inspirations. Normal size. PLEURA: CONCLUSION: 1. Ventricular systolic function is normal. LVEF is 65%. 2. Mild diastolic dysfunction. 3. Aortic valve sclerosis with no stenosis. 4. No significant valvular dysfunction. 5. Normal right-sided pressures. 6. No pericardial effusion. Adult Echocardiography Procedure Report Left Ventricle LVEDD (3.7 - 5.6 cm): 3.57 cm LVESD (2.2 - 4.0 cm): 2.05 cm LVIVS thickness (0.6 - 1.2 cm): 1.42 cm LVPW thickness (0.5 - 1.0 cm): 1.29 cm e': 0.10 m/s E - e': 7.39 LVOT Max Gradient: 5.39 mm[Hg] Peak Velocity (LVOT): 1.16 m/s Mean Velocity (LVOT): 0.76 m/s LVOT Diameter 2.01 cm Left Ventricular Ejection Fraction: 65 % Left Atrium LA Volume Index (2D A2C): 91.68 ml, 91.68 ml Left Atrium Systolic Dimension: 4.09 cm Mitral Valve MV E to A Ratio: 0.68 Mitral Valve A-Wave Peak Velocity: 1.04 m/s Mitral Valve E-Wave Peak Velocity: 0.71 m/s Right Ventricle RV Internal Diastolic Dimension: 3.00 cm Aorta AO Root Diam: 3.10 cm Ascending Ao Diam: 3.01 cm Aortic Valve AoV Area (Peak Michael): 1.69 cm2, 1.61 cm2, 1.78 cm2, 1.78 cm2 AoV Area (VTI): 1.78 cm2, 1.71 cm2 Peak Velocity(Antegrade Flow): 2.30 m/s, 2.07 m/s, 2.07 m/s Peak Gradient(Antegrade Flow): 21.13 mm[Hg], 17.07 mm[Hg], 17.22 mm[Hg] Mean Velocity(Antegrade Flow): 1.47 m/s, 1.33 m/s Mean Gradient(Antegrade Flow): 10.11 mm[Hg], 8.23 mm[Hg] Velocity Time Integral: 50.69 cm, 46.62 cm Tricuspid Valve Peak Velocity (Regurgitant Flow): 1.76 m/s, 2.55 m/s Peak Velocity: 0.66 m/s Pulmonic Valve Mean Gradient: 1.67 mm[Hg] Mean Velocity: 0.61 m/s Peak Velocity: 0.89 m/s, 1.14 m/s Peak Gradient: 5.16 mm[Hg], 3.20 mm[Hg] Right Atrium Right Atrium Systolic Pressure: 47.04 ml, 47.04 ml Dictated by: Temo Rae M.D. on 03/03/2022 at 15:29 Approved by: Temo Rae M.D. on 03/03/2022 at 15:32 Normal [facility] FREE T4on 03-02-2022 Free T4 [Mass/Vol] 0.80 ng/dL Normal 0.76-1.46 [facility] Comment on above: Performed By: #### F T4 #### [facility] [address] [address] [address] Ann Newton LIPID PROFILEon 03-02-2022 CHOL-HDL RATIO NORM SEE BELOW Normal [facility] Comment on above: Result Comment: 3.3 - 4.4 LOW RISK 4.4 - 7.1 AVERAGE RISK 7.1 - 11.0 MODERATE RISK >11.0 HIGH RISK Performed By: #### L IPID, TSH, CMP #### [facility] [address] [address] [address] Ann Newton Cholesterol [Mass/Vol] 132 mg/dL Normal <=200 [facility] Comment on above: Performed By: #### L IPID, TSH, CMP #### [facility] [address] [address] [address] Ann Newton Cholesterol in HDL [Mass/Vol] 41 mg/dL Normal 40-60 [facility] Comment on above: Performed By: #### L IPID, TSH, CMP #### [facility] [address] [address] [address] Ann Newton Cholesterol in LDL [Mass/Vol] 63.0 mg/dL Normal [facility] Comment on above: Performed By: #### L IPID, TSH, CMP #### [facility] [address] [address] [address] Ann Newton Cholesterol.total/C holesterol in HDL [Mass ratio] 3.2 {ratio} Normal [facility] Comment on above: Performed By: #### L IPID, TSH, CMP #### [facility] [address] [address] [address] Ann Newton HDL NORMAL > or = 60 mg/dl - LO W CARDIOVASCULAR RISK <40 mg/dl - HIGH CARDIOVASCULAR RISK Normal [facility] Comment on above: Performed By: #### L IPID, TSH, CMP #### [facility] [address] [address] [address] Ann Newton LDL CALC NORMAL SEE BELOW Normal [facility] Comment on above: Result Comment: <100 mg/dl OPTIMAL 100 - 129 mg/dl NEAR OR ABOVE OPTIMAL 130 - 159 mg/dl BORDERLINE HIGH 160 - 189 mg/dl HIGH >190 mg/dl VERY HIGH Performed By: #### L IPID, TSH, CMP #### [facility] [address] [address] [address] Ann Newton Triglyceride [Mass/Vol] 140 mg/dL Normal <=150 [facility] Comment on above: Performed By: #### L IPID, TSH, CMP #### [facility] [address] [address] [address] Ann Newton VLDL CALC 28.0 mg/dL Normal [facility] Comment on above: Performed By: #### L IPID, TSH, CMP #### [facility] [address] [place] [address] Dr. Ann Newton PROF 14(COMP METB)on 022 Albumin [Mass/Vol] 3.8 g/dL Normal 3.4-5.0 [facility] Comment on above: Performed By: #### L IPID, TSH, CMP #### [facility] [address] [place] [address] Dr. Ann Newton Albumin/Globulin [Mass ratio] 1.1 {ratio} Normal [facility] Comment on above: Performed By: #### L IPID, TSH, CMP #### [facility] [address] [address] [address] Ann Newton ALP [Catalytic activity/Vol] 43 U/L Critically low 46-116 [facility] Comment on above: Performed By: #### L IPID, TSH, CMP #### [facility] [address] [place] [address] Dr. Ann Newton ALT [Catalytic activity/Vol] 20 U/L Normal 14-59 [facility] Comment on above: Performed By: #### L IPID, TSH, CMP #### [facility] [address] [place] [address] Dr. Ann Newton Anion gap [Moles/Vol] 9.1 mmol/L Normal [facility] Comment on above: Performed By: #### L IPID, TSH, CMP #### [facility] [address] [address] [address] Ann Newton AST [Catalytic activity/Vol] 12 U/L Critically low 15-37 [facility] Comment on above: Performed By: #### L IPID, TSH, CMP #### [facility] [address] [address] [address] Ann Newton Bilirubin [Mass/Vol] 0.4 mg/dL Normal 0.2-1.0 [facility] Comment on above: Performed By: #### L IPID, TSH, CMP #### [facility] [address] [address] [address] Ann Newton Calcium [Mass/Vol] 9.8 mg/dL Normal 8.5-10.1 [facility] Comment on above: Performed By: #### L IPID, TSH, CMP #### [facility] [address] [address] [address] Ann Newton Chloride [Moles/Vol] 100 mmol/L Normal 98-107 [facility] Comment on above: Performed By: #### L IPID, TSH, CMP #### [facility] [address] [address] [address] Ann Newton CO2 [Moles/Vol] 29.5 mmol/L Normal 21.0-32.0 [facility] Comment on above: Performed By: #### L IPID, TSH, CMP #### [facility] [address] [place] [address] Dr. Ann Newton Creatinine [Mass/Vol] 0.80 mg/dL Normal 0.55-1.02 [facility] Comment on above: Performed By: #### L IPID, TSH, CMP #### [facility] [address] [address] [address] Ann Newton EGFR-AF SWEDISH >60 Normal >=60 [facility] Comment on above: Performed By: #### L IPID, TSH, CMP #### [facility] [address] [address] [address] Ann Newton EGFR-NON AF SWEDISH >60 Normal >=60 [facility] Comment on above: Performed By: #### L IPID, TSH, CMP #### [facility] [address] [address] [address] Ann Newton Globulin (S) [Mass/Vol] 3.6 g/dL Normal [facility] Comment on above: Performed By: #### L IPID, TSH, CMP #### [facility] [address] [address] [address] Ann Newton Glucose [Mass/Vol] 130 mg/dL Critically high 74-106 [facility] Comment on above: Performed By: #### L IPID, TSH, CMP #### [facility] [address] [address] [address] Ann Newton Potassium [Moles/Vol] 4.6 mmol/L Normal 3.5-5.1 [facility] Comment on above: Performed By: #### L IPID, TSH, CMP #### [facility] [address] [address] [address] Ann Newton Protein [Mass/Vol] 7.4 g/dL Normal 6.4-8.2 [facility] Comment on above: Performed By: #### L IPID, TSH, CMP #### [facility] [address] [address] [address] Ann Newton Sodium [Moles/Vol] 134 mmol/L Critically low 136-145 [facility] Comment on above: Performed By: #### L IPID, TSH, CMP #### [facility] [address] [address] [address] Ann Newton Urea nitrogen [Mass/Vol] 19.0 mg/dL Critically high 7.0-18.0 [facility] Comment on above: Performed By: #### L IPID, TSH, CMP #### [facility] [address] [address] [address] Ann Newton Urea nitrogen/Creatinine [Mass ratio] 23.8 mg/mg Normal [facility] Comment on above: Performed By: #### L IPID, TSH, CMP #### [facility] [address] [address] [address] Ann Newton TSHon 03-02-2022 TSH 0.385 uIU/mL Normal 0.358-3.740 [facility] Comment on above: Performed By: #### L IPID, TSH, CMP #### [facility] [address] [address] [address] Ann Newton XR DEXA BONE DENSITYon 03-02 XR DEXA BONE DENSITY EXAMINATION: XR DEXA BONE DENSITY, 03/02/2022 8:34 AM EST HISTORY: Menopause present COMPARISON: 2019, 2017, 2014 TECHNIQUE: Dual-energy X-ray absorptiometry (DEXA) bone density study performed for the axial skeleton. FINDINGS: Bone mineral density AP spine L2-4 measures 1.329 g/sq cm. T score 1.1. WHO classification: Normal. Lowest bone mineral density left femoral neck measures 0.671 g/sq cm. T score -2.6. WHO classification: Osteoporosis IMPRESSION: Osteoporosis. 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 The patient also has refractory urge urinary incontinence and is considering a sacral neuromodulation also in the future. 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 The patient also has refractory urge urinary incontinence and is considering a sacral neuromodulation also in the future. OPERATION PERFORMED: Bulkamid transurethral bulking injection therapy, cystourethroscopy. SURGEON: Jus Blank DO ASSISTANTS: Zafar Enrique MD ANESTHESIA: Local. FINDINGS: As above. SPECIMENS: None. COMPLICATIONS: None. DRAINS: None. PACKING: None. BLOOD LOSS: None. COURSE: Prior to the procedure, risks and benefits of the procedure were explained to the patient. The patient understood and signed informed consent under no duress or confusion. She was taken back to the OR and prepped and draped in sterile fashion in the dorsal lithotomy position in candy cane stirrups. We put her in positioning well awake to ensure that she had no back or hip pain. A surgical time-out was taken. A local lidocaine jet was placed intraurethrally and then the patient's bladder was drained with a Red Sanders catheter of 200 mL of urine. A periurethral block of 1% lidocaine with epinephrine 10 mL worth was injected, 5 mL each side and utilizing the operative cystourethroscope backing off a centimeter from the patulous urethrovesical junction with non-emergent intrinsic sphincter deficiency, 0.5 mL of Bulkamid was injected submucosally at 2, 4, 8, and 10 o'clock with adequate coaptation. I did not want to overcoapt the area retention. There was no bleeding or extrusion of material. The procedure was felt to be complete and the patient tolerated the procedure well. Postsurgical debriefing occurred. The patient would go home on Keflex 500 mg three times a day for three to five days. She has an appointment in one month. She will undergo a voiding trial in the PACU. The patient will consider sacral neuromodulation for urge incontinence in the near future. JUS BLANK /[id number] Doc#: [id number] CC: Jus Moore Normal [facility] CYCLIC CITRULLINATED PEPTIDE AB (CCP)on 10-30-2021 CCP Antibodies IgG/IgA 10 units Normal 0-19 [facility] Comment on above: Result Comment: Nega tive <20 Weak positive 20 - 39 Moderate positive 40 - 59 Strong positive >59 Performed By: #### A NARF #### [facility] [address] [place] [address] Dr. Yilan Newton FLORENCIO EIA W/REFLEX 5 BIOMARKER Son 10-29-2021 FLORENCIO Direct Negative Normal Negative [facility] Comment on above: Performed By: #### A NARF #### [facility] [address] [place] [address] Dr. Ann Newton C-REACTIVE PROTEINS (HS)on 0 10-29-2021 C-Reactive Protein, Cardiac 3.46 mg/L Critically high 0.00-3.00 [facility] Comment on above: Result Comment: Rela tive Risk for Future Cardiovascular Event Low <1.00 Average 1.00 - 3.00 High >3.00 Performed By: #### C RPHS #### [facility] [address] [place] [address] Dr. Ann Newton RHEUMATOID FACTORon 10-30-19 22 RA Latex Turbid. <10.0 Normal <14.[address] [facility] Comment on above: Performed By: #### R F #### [facility] [address] [place] [address] Dr. Ann Newton XR HAND GREG 2 Von 10-28-2021 XR HAND GREG 2 V EXAMINATION: XR HAND GREG 2 V HISTORY: Idiopathic osteoarthritis COMPARISON: No relevant comparison available. FINDINGS: RIGHT FINDINGS: BONES: Marked degenerative changes of the distal interphalangeal joints of the second and fifth digits with large periarticular osteophytes. Remote, incompletely healed fracture involving the tuft of the fourth distal phalanx. Moderate degenerative changes involving the remainder of the interphalangeal joints. Mild degenerative changes at the first carpal-metacarpal joint and first metacarpophalangeal joint. SOFT TISSUES: No visible soft tissue swelling. OTHER: Negative. LEFT FINDINGS: BONES: Marked degenerative changes involving the distal interphalangeal joint of the second through fifth digits, and the first digit interphalangeal joint. Moderate degenerative changes of the proximal interphalangeal joints. SOFT TISSUES: No visible soft tissue swelling. OTHER: Negative. IMPRESSION: RIGHT CONCLUSION: Multifocal advanced degenerative changes favoring osteoarthritis. Incompletely healed remote fracture of the fourth distal phalanx. LEFT CONCLUSION: Multifocal advanced degenerative changes favoring osteoarthritis. Electronically authenticated by: JEANETTE PARDO Date: 2021-10-28 14:27 Normal [facility] Hemoglobin and Hematocriton 09-01-2021 Hematocrit (Bld) [Volume fraction] 38.8 % 36 - 46 % [facility] Hemoglobin.gastroin testinal spec 1 Ql (Stl) 13.1 g/dL 12.0 - 16.0 g/dL [facility] Hgb/Hcton 09-01-2021 Hematocrit (Bld) [Volume fraction] 38.8 % Normal 36-46 [facility] Comment on above: Performed By: #### H H #### [facility] [address] [place] [address] [employer]: Corbin Stack MD Hemoglobin (Bld) [Mass/Vol] 13.1 g/dL Normal 12.0-16.0 [facility] Comment on above: Performed By: #### H H #### [address] [address] [employer]er: Corbin Stack MD OPERATIVE REPORTon OPERATIVE REPORT [address] [phone] OPERATIVE REPORT PATIENT NAME: JESSICA LAO : 1940 MED REC NO: [id number] ROOM: ACCOUNT NO: [id number] ADMIT DATE: 09/01/2021 PROVIDER: Jus Blank DATE OF PROCEDURE: 09/01/2021 INDICATIONS FOR SURGERY: Symptomatic pelvic organ prolapse with nonemergent stress incontinence with intrinsic sphincter deficiency. PREOPERATIVE DIAGNOSES: Grade 2 uterine prolapse, grade 3 cystocele, nonemergent stress urinary incontinence with intrinsic sphincter deficiency, and grade 1 rectocele. POSTOPERATIVE DIAGNOSES: Grade 2 uterine prolapse, grade 3 cystocele, nonemergent stress urinary incontinence with intrinsic sphincter deficiency, and grade 1 rectocele plus benign senescent ovaries. PROCEDURES: Vaginal hysterectomy with external Pope-Velásquez culdoplasty, uterosacral suspension and anterior colporrhaphy, posterior site specific colporrhaphy based on consent procedures indicated, cystourethroscopy with filling cystometrogram and Bulkamid transurethral bulking injection. SURGEON: Jus Blank DO ASSISTANTS: Cici Alvarenga DO; Alona Plummer DO ANESTHESIA: General endotracheal. FINDINGS: As above. SPECIMENS: Uterus, cervix, vaginal mucosa. COMPLICATIONS: None. BLOOD LOSS: 30 mL. DRAINS: In-and-out Galindo catheterization. IMPLANTS: 2 mL of Bulkamid. COURSE: Prior to the procedure, risks and benefits of the procedure were explained to the patient. The patient understood and signed informed consent under no duress or confusion. She received a preoperative antibiotic and EPC cuffs were functional. She was taken back to the OR and prepped and draped in sterile fashion in dorsal lithotomy position in [facility] cane stirrups, confirmed to be neutrally positioned by myself. A weighted speculum was placed in the vagina and the bladder was drained. Surgical time-out was taken. The patient was prepped and draped sterilely. A weighted speculum was placed in the vagina and the cervix was grasped with two double tooth tenacula. The cervix was injected with 10 mL of 1% lidocaine plain. A scalpel incision was made circumferentially down to the anterior and posterior peritoneal reflections. Posterior and anterior colpotomies were made without cystotomy or rectotomy. Uterosacral ligaments were clamped, cut, and stick tied with 1-0 Vicryl suture. Ureters were plucked and found to be out of the way. The cardinal and infundibulopelvic ligaments were clamped, cut, and stick tied in a similar manner with the infundibulopelvic ligament secondarily free tied. The uterus was removed for specimen. Fallopian tubes and ovaries could not be seen. They could be palpated. They were out of the way. The colpotomy was of small aperture. Because the ovaries were so cranial, it was felt best to leave them in place rather than risk a hemorrhage. A small wedge of posterior apical mucosa was excised. 1-0 Vicryl suture was used through the posterior apical mucosa, uterosacral ligaments, and peritoneum overlying the rectum x2. The colpotomy was then closed with a peritoneal closure in circumferential manner. The incisions were closed and confirmed. Sponge and needle counts were correct. Pope-Velásquez sutures were cinched in successive fashion to sheath the vaginal apex into the sacral hollow and plicate uterosacral ligaments. There was no enterocele. Next, the anterior colporrhaphy was commenced by making a midline incision up to the proximal bladder neck. Cystocele was dissected away from perivesical fascia and mucosa. Two-layer closure of interrupted 2-0 Vicryl suture helped to plicate medial and lateral perivesical fascia and reestablish the apical pubocervical vaginal ring. Redundant mucosa was excised. 2-0 Vicryl suture was used to close the mucosa in a running manner. There was a small apical posterior site specific rectocele based on procedures indicated in the consent form. It was felt best to address this to reduce the risk of this part of the compartment prolapsing later on. Incision was made and a 0.5 cm swathe of tissue was removed in width. Deep and perirectal fascia was plicated together with 1-0 Vicryl suture including the mucosa. The vagina was hemostatic. Sponge and needle counts were correct at this time. No need for packing. Next, cystoscopy was done with 17-Macedonian 30-degree cystourethroscope. Ureters were patent with Pyridium-stained urine emanating through the ureters repetitively. Next, the operative cystourethroscope with the Bulkamid injector and syringes were then utilized to inject into a very patulous urethrovesical junction backing a centimeter off. There was moderate coaptation in four quadrants at 2, 4, 8, and 10 o'clock. There was minimal bleeding and no overt stenosis. The patient did tolerate the procedure well. The bladder was drained. The patient went to Recovery in stable fashion. The (more content not included)... Normal [facility] Surgical Pathologyon 09-01- 022 Surgical Pathology (NOTE) -- Diagnosis -- A. VAGINAL MUCOSA: -SQUAMOUS MUCOSA WITH NO PATHOLOGIC DIAGNOSIS B. UTERUS: -CHRONIC ENDOCERVICITIS -ATROPHIC ENDOMETRIUM -INCIDENTAL SMALL LEIOMYOMA Reynold Mcdonnell D.O. Electronically Signed Out [facility]09/03/2021 Clinical Information Pre-op Diagnosis: CYSTOCELE, UTERINE PROLAPSE, URINARY INCONTINENCE Operative Findings: VAGINAL MUCOSA; UTERUS AND CERVIX Operation Performed: HYSTERECTOMY VAGINAL CYSTOCELE REPAIR, CYSTO BULKAMID INJECTION Source of Specimen A: VAGINAL MUCOSA B: UTERUS AND CERVIX Gross Description A. JESSICA LAO, VAGINAL MUCOSA Fragments of wrinkled pink-farah tissue, 8.0 x 3.8 x 1.5 cm in aggregate. Sectioning reveals no masses. Shaker Tender sections 1cs. B. JESSICA LAO, UTERUS AND CERVIX Uterus with attached cervix. Dimensions: Uterus and cervix 7.9 x 4.2 x 3.5 cm. Weight: Uterus and cervix 35 grams. Serosa: [place]-farah and disrupted posteriorly. Cervix: 3.9 x 3.2 x 3.0 cm, unremarkable with a patent os. Endometrium: The cavity is 3.5 x 2.0 cm and the surface is pink-farah. Posteriorly, there is a faint, 1.0 x 0.9 cm polypoid area. The subjacent myometrium is unremarkable. The endometrium is 0.1 cm in thickness. Myometrium: Not submitted. Cassette summary: 1 anterior cervix, 2 posterior cervix, 3-4 anterior endomyometrium full thickness sections with nodule in 4, 5-6 posterior endomyometrium full thickness sections including faint endometrial polypoid area. tm Microscopic Description A, B. Microscopic examination performed. SURGICAL PATHOLOGY CONSULTATION Patient Name: JESSICA LAO [facility] Rec: [id number] Path Number: [id number] [facility] [employer] [facility] ANATOMIC PATHOLOGY [address] [place] [phone] Normal [facility] Comment on above: Performed By: #### P PPVS #### [address] [address] [employer]er: Kevin Rivera MD TYPE AND SCREENon 09-01-2021 ABO/Rh Positive [facility] Arm Band Number BE [id number] [facility] Expiration Date 09/04/2021,235 [facility] Type + Screenon 09-01-2021 Type + Screen Sample Expiration 09/04/2021,235 Arm Band Number BE [id number] ABO/Rh(D) AB POSITIVE Antibody Screen NEGATIVE Normal [facility] Comment on above: Performed By: #### T YS #### [facility] [address] [place] [address] [employer]er: Corbin Stack MD Covid-19 PCR ([facility])on SARS-CoV-2 (COVID-19) RNA DAVID+probe Ql (Unsp spec) Not detected Normal NOT DETECTED [facility] Comment on above: Result Comment: This test is not yet approved or cleared by the [place] FDA. When there are no FDA-approved or cleared tests available, and other criteria are met, FDA can make tests available under an emergency access mechanism called an Emergency Use Authorization (EUA). The EUA for this test is supported by the [place] of Health and Human Service's (HHS's) declaration that circumstances exist to justify the emergency use of in vitro diagnostics for the detection and/or diagnosis of the virus that causes COVID-19. This EUA will remain in effect (meaning this test can be used) for the duration of the COVID-19 declaration justifying emergency of IVDs, unless it is terminated or revoked by FDA (after which the test may no longer be used). When diagnostic testing is negative, the possibility of a false negative should be considered in the context of a patient's recent exposures and the presence of clinical signs and symptoms consistent with SARS-CoV-2. Performed By: #### C VDTB #### [facility] [address] [place] [address] Dr. Ann Newton CBC AUTO DIFFon 08-14-2021 BASO # 0.0 103/ul Normal 0.0-0.1 [facility] Comment on above: Performed By: #### C BC #### [facility] [address] [place] [address] Dr. Ann Newton Basophils/100 WBC (Bld) 0.3 % Normal 0.2-2.0 [facility] Comment on above: Performed By: #### C BC #### [facility] [address] [place] [address] Dr. Ann Newton EO # 0.1 103/ul Normal 0.0-0.7 [facility] Comment on above: Performed By: #### C BC #### [facility] [address] [place] [address] Dr. Ann Newton Eosinophils/100 WBC (Bld) 1.5 % Normal 0.9-7.0 [facility] Comment on above: Performed By: #### C BC #### [facility] [address] [place] [address] Dr. Ann Newton Erythrocyte distribution width (RBC) [Ratio] 12.1 % Normal 11.0-15.0 [facility] Comment on above: Performed By: #### C BC #### [facility] [address] [place] [address] Dr. Ann Newton Hematocrit (Bld) [Volume fraction] 37.9 % Normal 36.0-48.0 [facility] Comment on above: Performed By: #### C BC #### [facility] [address] [place] [address] Dr. Ann Newton Hemoglobin (Bld) [Mass/Vol] 12.7 g/dL Normal 12.0-16.0 [facility] Comment on above: Performed By: #### C BC #### [facility] [address] [place] [address] Dr. Ann Newton IG # 0.05 10e3/ul Critically high 0.00-0.03 [facility] Comment on above: Performed By: #### C BC #### [facility] [address] [place] [address] Dr. Ann Newton IG % 0.8 % Critically high 0.0-0.5 [facility] Comment on above: Performed By: #### C BC #### [facility] [address] [place] [address] Dr. Ann Newton LYMPH # 1.8 103/ul Normal 1.2-3.8 [facility] Comment on above: Performed By: #### C BC #### [facility] [address] [place] [address] Dr. Ann Newton Lymphocytes/100 WBC (Bld) 27.3 % Normal 20.5-60.0 [facility] Comment on above: Performed By: #### C BC #### [facility] [address] [place] [address] Dr. Ann Newton MANUAL DIFF REQ NO Normal [facility] Comment on above: Performed By: #### C BC #### [facility] [address] [place] [address] Dr. Ann Newton MCH (RBC) [Entitic mass] 31.8 pg Normal 26.7-34.0 [facility] Comment on above: Performed By: #### C BC #### [facility] [address] [place] [address] Dr. Ann Newton MCHC (RBC) [Mass/Vol] 33.5 g/dL Normal 29.9-35.2 [facility] Comment on above: Performed By: #### C BC #### [facility] [address] [place] [address] Dr. Ann Newton MCV (RBC) [Entitic vol] 94.8 fL Normal 81.0-99.0 [facility] Comment on above: Performed By: #### C BC #### [facility] [address] [place] [address] Dr. Ann Newton MONO # 0.4 103/ul Normal 0.3-0.8 [facility] Comment on above: Performed By: #### C BC #### [facility] [address] [place] [address] Dr. Ann Newton Monocytes/100 WBC (Bld) 6.2 % Normal 1.7-12.0 [facility] Comment on above: Performed By: #### C BC #### [facility] [address] [place] [address] Dr. Ann Newton NEUT # 4.2 103/ul Normal 1.4-6.5 [facility] Comment on above: Performed By: #### C BC #### [facility] [address] [place] [address] Dr. Ann Newton Neutrophils/100 WBC (Bld) 63.9 % Normal 43.0-75.0 [facility] Comment on above: Performed By: #### C BC #### [facility] [address] [place] [address] Dr. Ann Newton Platelet mean volume (Bld) [Entitic vol] 9.3 fL Critically low 9.5-13.5 [facility] Comment on above: Performed By: #### C BC #### [facility] [address] [place] [address] Dr. Ann Newton PLT 215 103/ul Normal 150-450 [facility] Comment on above: Performed By: #### C BC #### [facility] [address] [place] [address] Dr. Ann Newton RBC 4.00 106/ul Critically low 4.20-5.40 [facility] Comment on above: Performed By: #### C BC #### [facility] [address] [place] [address] Dr. Ann Newton WBC 6.5 103/ul Normal 4.0-11.0 [facility] Comment on above: Performed By: #### C BC #### [facility] [address] [place] [address] Dr. Ann Newton MRSA NARES #1on 08-14-2021 MRSA NARES #1 Culture Observations : NO GROWTH OF MRSA AT 48 HOURS. Normal [facility] Comment on above: Performed By: #### A NARF #### [facility] [address] [place] [address] Dr. Ann Newton PROF CHEM 8 (BAS METB)on Anion gap [Moles/Vol] 11.0 mmol/L Normal [facility] Comment on above: Performed By: #### B MP #### [facility] [address] [place] [address] Dr. Ann Newton Calcium [Mass/Vol] 9.5 mg/dL Normal 8.5-10.1 [facility] Comment on above: Performed By: #### B MP #### [facility] [address] [place] [address] Dr. Ann Newton Chloride [Moles/Vol] 99 mmol/L Normal 98-107 [facility] Comment on above: Performed By: #### B MP #### [facility] [address] [place] [address] Dr. Ann Newton CO2 [Moles/Vol] 30.6 mmol/L Critically high 22.0-30.0 [facility] Comment on above: Performed By: #### B MP #### [facility] [address] [address] [address] Ann Newton Creatinine [Mass/Vol] 0.75 mg/dL Normal 0.52-1.04 [facility] Comment on above: Performed By: #### B MP #### [facility] [address] [address] [address] Ann Newton EGFR-AF SWEDISH >60 Normal >=[address] [facility] Comment on above: Performed By: #### B MP #### [facility] [address] [address] [address] Ann Newton EGFR-NON AF SWEDISH >60 Normal >=60 [facility] Comment on above: Performed By: #### B MP #### [facility] [address] [address] [address] Ann Newton Glucose [Mass/Vol] 105 mg/dL Normal 74-106 [facility] Comment on above: Performed By: #### B MP #### [facility] [address] [address] [address] Ann Newton Potassium [Moles/Vol] 4.6 mmol/L Normal 3.4-5.0 [facility] Comment on above: Performed By: #### B MP #### [facility] [address] [place] [address] Dr. Ann Newton Sodium [Moles/Vol] 136 mmol/L Critically low 137-145 [facility] Comment on above: Performed By: #### B MP #### [facility] [address] [address] [address] Ann Newton Urea nitrogen [Mass/Vol] 16.0 mg/dL Normal 7.0-18.0 [facility] Comment on above: Performed By: #### B MP #### [facility] [address] [place] [address] Dr. Ann Newton Urea nitrogen/Creatinine [Mass ratio] 21.3 mg/mg Normal [facility] Comment on above: Performed By: #### B MP #### [facility] [address] [place] [address] Dr. Ann Newton Ambulatory Visit Summaryon 0 07-04-2021 Ambulatory Visit Summary JESSICA LAO :1940 Visit Date:07/04/2021 Ambulatory Visit Instructions Your Diagnosis Lipoma of back Your Care Team Attending Physician - Escobar VICTORIA MD Primary Care Physician - SIDNEY MOORE DO This Is Your Medications List Contact prescribing physician if questions or concerns aspirin (aspirin 81 mg Oral EC Tab) colestipol (Colestid 1 g oral tablet) cranberry esomeprazole (Nexium 20 mg Cap-DR) fluticasone (fluticasone CFC free 44 mcg/inh Inh Aer w/adapter) fluticasone nasal (Flonase 0.05 mg/inh nasal spray) fluticasone-salmetero l (Advair 250 mcg-50 mcg Powder) hydrochlorothiazide-t riamterene (Maxzide 75 mg-50 mg oral tablet) lisinopril montelukast (Singulair) multivitamin with minerals (Multivitamins and Minerals) potassium chloride (potassium chloride 99 mg oral tablet) simvastatin thyroid desiccated (Curtis Thyroid 60 mg Tab) Procedures Performed Excision of lipoma of back (06/25/2021), Cystourethroscopy with dilation of urethral stricture (12/23/2016), Cystourethroscopy with dilation of urethral stricture (05/08/2014), Cystourethroscopy with dilation of urethral stricture (06/02/2011), Urodynamics (05/20/2011), Arthroscopy of knee, Carpal tunnel release, Cataract, Cholecystectomy, Colonoscopy, Mastectomy, Pessary. Discharge Vitals Temperature (Temporal Artery) 36.5 ?C What to do next You Need to Schedule the Following Appointments Follow Up with AAKASH FISH, Escobar Sosa, BEATRIZ When: Only if needed Where: [address] [place] [address]- Medications What How Much When Instructions Unchanged aspirin (aspirin 81 mg Oral EC Tab) 1 Tablets By Mouth Every day Contact prescribing physician if questions or concerns Unchanged colestipol (Colestid 1 g oral tablet) as directed Contact prescribing physician if questions or concerns Unchanged cranberry 300 Milligram By Mouth Every day Contact prescribing physician if questions or concerns Unchanged esomeprazole (Nexium 20 mg Cap-DR) 1 Capsules By Mouth Every day Contact prescribing physician if questions or concerns Unchanged fluticasone (fluticasone CFC free 44 mcg/ inh Inh Aer w/ adapter) 2 Puffs Inhalation 2 times a day Contact prescribing physician if questions or concerns Unchanged fluticasone nasal (Flonase 0.05 mg/ inh nasal spray) 1 Sprays Nasal Inhalation 2 times a day Contact prescribing physician if questions or concerns Unchanged fluticasone-salmetero l (Advair 250 mcg-50 mcg Powder) 1 Inhalation Inhalation 2 times a day Contact prescribing physician if questions or concerns Unchanged hydrochlorothiazide-t riamterene (Maxzide 75 mg-50 mg oral tablet) 1 Tablets By Mouth Every day Contact prescribing physician if questions or concerns Unchanged lisinopril 20 Milligram By Mouth Every day Contact prescribing physician if questions or concerns Unchanged montelukast (Singulair) 10 Milligram By Mouth Every day Contact prescribing physician if questions or concerns Unchanged multivitamin with minerals (Multivitamins and Minerals) Contact prescribing physician if questions or concerns Unchanged potassium chloride (potassium chloride 99 mg oral tablet) 2 Tablets By Mouth Every day Contact prescribing physician if questions or concerns Unchanged simvastatin 20 Milligram By Mouth Once a day (at bedtime) Contact prescribing physician if questions or concerns Unchanged thyroid desiccated (Curtis Thyroid 60 mg Tab) alternate 3 tabs daily with 2 tabs daily Contact prescribing physician if questions or concerns Allergies penicillin (Dizziness, Nausea) Problems Ongoing - Any problem that you are currently receiving treatment for. 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 Asthma Schuster's palsy Breast cancer diabetes Diverticular disease Elevated cholesterol/high density lipoprotein ratio Hypertension Hypothyroidism Spinal stenosis Normal [facility] General Surgery Office/Clini c Noteon 07-04-2021 General Surgery Office/Clinic Note Chief Complaint post operative follow up HPI Staff 9 day post operative follow up post excisional biopsy lipoma left back. Denies pain, bleeding or drainage. History of Present Illness 9 days s/p excisional biopsy lipoma left upper back/flank; doing well, some itching, no drainage from incision. pathology consistent with lipoma. Review of Systems ROS - Provider Constitutional: no fever, no sweats, no weight loss. Eyes: no glasses, no blurred vision, no visual loss. ENMT: no dentures, no hoarseness, no swallowing difficulties, no hearing loss, no ear infection(s), no nose bleeds. Cardiovascular: normal blood pressure, no chest pain, regular heartbeat, no heart murmur. Respiratory: no shortness of breath, no cough, no asthma, no wheezing. Gastrointestinal: no nausea, no vomiting, no diarrhea, no constipation, no blood in stool, no change in bowel habits, no abdominal pain, no hepatitis. Genitourinary: no kidney stones, no urine infection, no dysuria. Musculoskeletal: no pain, no weakness. Skin: no changing moles, no rash, no skin lumps. Neurologic: no seizures, no epilepsy, no headache. Psychiatric: no emotional or psychiatric problem. Heme/Lymph: no bleeding problems, no anemia, no blood clots, no transfusions. Allergy/Immunologic: no swollen lymph nodes/glands, no IV drug abuse. Other: Additional ROS info: Except as noted in the above Review of Systems and in the History of Present Illness, all other systems have been reviewed and are negative or noncontributory. Physical Exam Vitals & Measurements T: 36.5 ?C(Temporal Artery) skin: incision healing well, no erythema or drainage, no ecchymoses. Assessment/Plan 1. Lipoma of back (D17.1: Benign lipomatous neoplasm of skin and subcutaneous tissue of trunk) doing well, call with problems/questions. Follow-up With When Contact Information AAKASH FISH, BEATRIZ Gonzalez Only if needed [address] [place] [address]- Additional Instructions: Problem List/Past Medical History Ongoing BMI 35.0-35.9,adult Chronic cystitis Chronic seborrheic dermatitis Controlled diabetes mellitus with diabetic polyneuropathy, without long-term current use of insulin Dribbling Dysuria Ex-smoker Feeling of incomplete bladder emptying GERD (gastroesophageal reflux disease) History of right breast cancer HTN (hypertension) Hyperlipidemia Hypothyroidism Irritable bowel syndrome with diarrhea Lipoma of back Lumbar spondylosis Mixed incontinence Nocturia JUNIE (obstructive sleep apnea) Stress incontinence Stricture of female urethra Urge incontinence Urinary urgency Urine frequency Historical Asthma Schuster's palsy Breast cancer diabetes Diverticular disease Elevated cholesterol/high density lipoprotein ratio Hypertension Hypothyroidism Spinal stenosis Procedure/Surgical History Excision of lipoma of back (06/25/2021), Cystourethroscopy with dilation of urethral stricture (12/23/2016), Cystourethroscopy with dilation of urethral stricture (05/08/2014), Cystourethroscopy with dilation of urethral stricture (06/02/2011), Urodynamics (05/20/2011), Arthroscopy of knee, Carpal tunnel release, Cataract, Cholecystectomy, Colonoscopy, Mastectomy, Pessary. Medications Advair 250 mcg-50 mcg Powder, 1 inh, Inhalation, BID Curtis Thyroid 60 mg Tab aspirin 81 mg Oral EC Tab, 81 mg= 1 tab(s), Oral, Daily Colestid 1 g oral tablet, as directed cranberry, 300 mg, Oral, Daily Flonase 0.05 mg/inh nasal spray, 1 spray(s), Nasal, BID fluticasone CFC free 44 mcg/inh Inh Aer w/adapter, 2 puff(s), Inhalation, BID lisinopril, 20 mg, Oral, Daily Maxzide 75 mg-50 mg oral tablet, 1 tab(s), Oral, Daily Multivitamins and Minerals Nexium 20 mg Cap-DR, 20 mg= 1 cap(s), Oral, Daily potassium chloride 99 mg oral tablet, 198 mg= 2 tab(s), Oral, Daily simvastatin, 20 mg, Oral, Once a day (at bedtime) Singulair, 10 mg, Oral, Daily Allergies penicillin (Dizziness, Nausea) Social History Alcohol Current, 1-2 times per year, 03/15/2019 Substance Abuse - Denies Substance Abuse, 06/06/2021 Tobacco Former smoker, quit more than 30 days ago Tobacco Use:. Never Smokeless Tobacco Use:. Cigarettes, 06/06/2021 Family History Hypertension: Mother. Uterine cancer: Mother. Immunizations Vaccine Date Status SARS-CoV-2 (COVID-19) Ad26 vaccine 02/25/2021 Recorded influenza virus vaccine, inactivated 12/2020 Recorded SARS-CoV-2 (COVID-19) Ad26 vaccine 06/27/2020 Recorded SARS-CoV-2 (COVID-19) Ad26 vaccine 05/31/2020 Recorded Normal [facility] Comment on above: Result Comment: Elec tronically Signed By: AAKASH FISH, Escobar Sosa\.br\Date and Time Signed: 07/04/21 13:47 EST Pathology Noteon 06-30-2021 Pathology Note [id number] .00CD:127 [facility] Operative Reporton Operative Report [id number] .00CD:127 [facility] Consent for Procedure/Surger yon 06-09-2021 Consent for Procedure/Surgery [id number] .00CD:127 [facility] Immunization Recordson 06-09 Immunization Records [id number] .00CD:127 [facility] Ambulatory Visit Summaryon 0 06-06-2021 Ambulatory Visit Summary JESSICA LAO :1940 Visit Date:06/06/2021 Ambulatory Visit Instructions Your Care Team Attending Physician - AAKASH FISH, Escobar Sosa Primary Care Physician - SIDNEY MOORE DO Referring Physician - SIDNEY MOORE DO This Is Your Medications List Contact prescribing physician if questions or concerns aspirin (aspirin 81 mg Oral EC Tab) colestipol (Colestid 1 g oral tablet) cranberry esomeprazole (Nexium 20 mg Cap-DR) fluticasone (fluticasone CFC free 44 mcg/inh Inh Aer w/adapter) fluticasone nasal (Flonase 0.05 mg/inh nasal spray) fluticasone-salmetero l (Advair 250 mcg-50 mcg Powder) hydrochlorothiazide-t riamterene (Maxzide 75 mg-50 mg oral tablet) lisinopril montelukast (Singulair) multivitamin with minerals (Multivitamins and Minerals) potassium chloride (potassium chloride 99 mg oral tablet) simvastatin thyroid desiccated (Curtis Thyroid 60 mg Tab) Procedures Performed Cystourethroscopy with dilation of urethral stricture (12/23/2016), Cystourethroscopy with dilation of urethral stricture (05/08/2014), Cystourethroscopy with dilation of urethral stricture (06/02/2011), Urodynamics (05/20/2011), Arthroscopy of knee, Carpal tunnel release, Cataract, Cholecystectomy, Colonoscopy, Mastectomy, Pessary. Discharge Vitals Temperature (Temporal Artery) 36.4 ?C Heart Rate (Peripheral) 80 Respiratory Rate 16 Blood Pressure 118/80 Height 161 cm Height 161.0 cm Weight 92.9 kg Weight 92.9 kg BMI 35.84 Medications What How Much When Instructions Unchanged aspirin (aspirin 81 mg Oral EC Tab) 1 Tablets By Mouth Every day Contact prescribing physician if questions or concerns Unchanged colestipol (Colestid 1 g oral tablet) as directed Contact prescribing physician if questions or concerns Unchanged cranberry 300 Milligram By Mouth Every day Contact prescribing physician if questions or concerns Unchanged esomeprazole (Nexium 20 mg Cap-DR) 1 Capsules By Mouth Every day Contact prescribing physician if questions or concerns Unchanged fluticasone (fluticasone CFC free 44 mcg/ inh Inh Aer w/ adapter) 2 Puffs Inhalation 2 times a day Contact prescribing physician if questions or concerns Unchanged fluticasone nasal (Flonase 0.05 mg/ inh nasal spray) 1 Sprays Nasal Inhalation 2 times a day Contact prescribing physician if questions or concerns Unchanged fluticasone-salmetero l (Advair 250 mcg-50 mcg Powder) 1 Inhalation Inhalation 2 times a day Contact prescribing physician if questions or concerns Unchanged hydrochlorothiazide-t riamterene (Maxzide 75 mg-50 mg oral tablet) 1 Tablets By Mouth Every day Contact prescribing physician if questions or concerns Unchanged lisinopril 20 Milligram By Mouth Every day Contact prescribing physician if questions or concerns Unchanged montelukast (Singulair) 10 Milligram By Mouth Every day Contact prescribing physician if questions or concerns Unchanged multivitamin with minerals (Multivitamins and Minerals) Contact prescribing physician if questions or concerns Unchanged potassium chloride (potassium chloride 99 mg oral tablet) 2 Tablets By Mouth Every day Contact prescribing physician if questions or concerns Unchanged simvastatin 20 Milligram By Mouth Once a day (at bedtime) Contact prescribing physician if questions or concerns Unchanged thyroid desiccated (Curtis Thyroid 60 mg Tab) alternate 3 tabs daily with 2 tabs daily Contact prescribing physician if questions or concerns Allergies penicillin (Dizziness, Nausea) Problems Ongoing - Any problem that you are currently receiving treatment for. BMI 35.0-35.9,adult Chronic cystitis Chronic seborrheic dermatitis Controlled diabetes mellitus with diabetic polyneuropathy, without long-term current use of insulin Dribbling Dysuria Ex-smoker Feeling of incomplete bladder emptying GERD (gastroesophageal reflux disease) History of right breast cancer HTN (hypertension) Hyperlipidemia Hypothyroidism Irritable bowel syndrome with diarrhea Lumbar spondylosis Mixed incontinence Nocturia JUNIE (obstructive sleep apnea) Stress incontinence Stricture of female urethra Urge incontinence Urinary urgency Urine frequency Historical - Any problem that you are no longer receiving treatment for. Asthma Schuster's palsy Breast cancer diabetes Diverticular disease Elevated cholesterol/high density lipoprotein ratio Hypertension Hypothyroidism Spinal stenosis Normal [facility] Physician Referralon 022 Physician Referral [id number] .[id number]:127 Normal [facility] US CHESTon 05-21-2021 US CHEST EXAM: US CHEST HISTORY: Lipoma of skin and subcutaneous tissue of trunk COMPARISON: None. TECHNIQUE: Ultrasound evaluation of soft tissues of left and right back. FINDINGS: 6.9 x 5.4 x 2.8 cm fatty appearing mass between the subcutaneous fat and underlying muscle. IMPRESSION: 1. Fatty appearing large mass within left back corresponding to patient's palpable lump. No appreciable soft tissue component which favors a benign lipoma. Tissue sampling is recommended. Electronically authenticated by: JEANETTE PARDO Date: 2021-05-21 10:33 Normal [facility] Vital Signs Date Time Vital Sign Value Performing Clinician Facility 02-12-2023 09:00-0400 Body height 162.56 cm Sidney [employer] [facility] Other 02-12-2023 09:00-0400 Body mass index (BMI) [Ratio] 33.98 kg/m2 [employer] Other [employer] [facility] Other 02-12-2023 09:00-0400 Body weight 89.81 kg Sidney [employer] Other [employer] [facility] Other 02-12-2023 09:00-0400 Diastolic blood pressure 74 mm[Hg] Sidney Ball Other [employer] [facility] Other 02-12-2023 09:00-0400 Respiratory rate 12 /min Sidney Ball Other [employer] [facility] Other 02-12-2023 09:00-0400 Systolic blood pressure 132 mm[Hg] Sidney Ball Other [employer] [facility] Other 12-29-2022 15:00-0400 Body height 162.56 cm Sidney Ball Other [employer] [facility] Other 12-29-2022 15:00-0400 Body mass index (BMI) [Ratio] 33.67 kg/m2 Sidney Ball Other [employer] [facility] Other 12-29-2022 15:00-0400 Body weight 89 kg Sidney Ball Other [employer] [facility] Other 12-29-2022 15:00-0400 Diastolic blood pressure 79 mm[Hg] Sidney Ball Other [employer] [facility] Other 12-29-2022 15:00-0400 Respiratory rate 12 /min Sidney Ball Other [employer] [facility] Other 12-29-2022 15:00-0400 Systolic blood pressure 134 mm[Hg] Sidney Ball Other [employer] [facility] Other 11-25-2022 11:30-0400 Body height 162.56 cm Sidney Ball Other [employer] [facility] Other 11-25-2022 11:30-0400 Body mass index (BMI) [Ratio] 34.12 kg/m2 Sidney Ball Other [employer] [facility] Other 11-25-2022 11:30-0400 Body weight 90.18 kg Sidney Ball Other [employer] [facility] Other 11-25-2022 11:30-0400 Diastolic blood pressure 79 mm[Hg] Sidney Ball Other [employer] [facility] Other 11-25-2022 11:30-0400 Respiratory rate 12 /min Sidney Ball Other [employer] [facility] Other 11-25-2022 11:30-0400 Systolic blood pressure 135 mm[Hg] Sidney Ball Other [employer] [facility] Other 08-14-2022 10:59-0400 Body weight 88.91 kg Damián Alexander APRN.[facility] Work Phone: 07-20-2022 12:45-0400 Body height 162.56 cm Brown Bush Other [employer] [facility] Other 07-20-2022 12:45-0400 Body mass index (BMI) [Ratio] 34.15 kg/m2 Brown Bush Other [employer] [facility] Other 07-20-2022 12:45-0400 Body temperature 96.9 [degF] Brown Bush Other [employer] [facility] Other 07-20-2022 12:45-0400 Body weight 90.27 kg Brown Bush Other [employer] [facility] Other 07-20-2022 12:45-0400 Diastolic blood pressure 68 mm[Hg] Brown Bush Other [employer] [facility] Other 07-20-2022 12:45-0400 Respiratory rate 20 /min Brown Bush Other [employer] [facility] Other 07-20-2022 12:45-0400 SaO2% (BldA) [Mass fraction] 97 % Brown Bush Other [employer] [facility] Other 07-20-2022 12:45-0400 Systolic blood pressure 124 mm[Hg] Brown Bush Other [employer] [facility] Other 07-09-2022 12:15-0400 Body height 162.56 cm Sidney Ball Other [employer] [facility] Other 07-09-2022 12:15-0400 Body mass index (BMI) [Ratio] 34.48 kg/m2 Sidney Ball Other [employer] [facility] Other 07-09-2022 12:15-0400 Body weight 91.13 kg Sidney Ball Other [employer] [facility] Other 07-09-2022 12:15-0400 Diastolic blood pressure 82 mm[Hg] Sidney Ball Other [employer] [facility] Other 07-09-2022 12:15-0400 Respiratory rate 16 /min Sidney Ball Other [employer] [facility] Other 07-09-2022 12:15-0400 Systolic blood pressure 132 mm[Hg] Sidney Ball Other [employer] [facility] Other 01-15-2022 13:15-0400 Diastolic blood pressure 68 mm[Hg] Jus Blank DO Work Phone: [employer] 01-15-2022 13:15-0400 Respiratory rate 73 /min Jus Blank DO Work Phone: [employer] 01-15-2022 13:15-0400 SaO2% (BldA) [Mass fraction] 98 % Jus Blank DO Work Phone: [facility] 01-15-2022 13:15-0400 Systolic blood pressure 162 mm[Hg] Jus Blank DO Work Phone: [facility] 01-15-2022 13:09-0400 Body temperature 98.6 [degF] Jus Blank DO Work Phone: [facility] 01-15-2022 13:09-0400 Heart rate 87 /min Jus Blank DO Work Phone: [facility] 01-15-2022 11:48-0400 Body height 149.9 cm Jus Blank DO Work Phone: [facility] 01-15-2022 11:48-0400 Body mass index (BMI) [Ratio] 43.42 kg/m2 Jus Blank DO Work Phone: [facility] 01-15-2022 11:48-0400 Body weight 97.52 kg Jus Blank DO Work Phone: [facility] 09-01-2021 11:00-0400 Heart rate 55 /min Jus Blank DO [facility] Phone[facility] 09-01-2021 11:00-0400 Respiratory rate 20 /min Jus Blank DO Work Phone[facility] 09-01-2021 11:00-0400 SaO2% (BldA) [Mass fraction] 94 % Jus Blank DO Work Phone[facility] 09-01-2021 10:45-0400 Diastolic blood pressure 80 mm[Hg] Jus Blank DO Work Phone[facility] 09-01-2021 10:45-0400 Systolic blood pressure 139 mm[Hg] Jus Blank DO Work Phone: [employer] 09-01-2021 09:06-0400 Body temperature 96.69 [degF] Jus Blank DO Work Phone: [employer] 09-01-2021 06:18-0400 Body height 149.9 cm Jus Blank DO Work Phone: [employer] 09-01-2021 06:18-0400 Body mass index (BMI) [Ratio] 41.81 kg/m2 Jus Blank DO Work Phone: [employer] 09-01-2021 06:18-0400 Body weight 93.89 kg Jus Blank DO Work Phone: [employer] 07-21-2021 12:45-0400 Body height 162.56 cm Brown Bush Other [employer] [facility] Other 07-21-2021 12:45-0400 Body mass index (BMI) [Ratio] 35.53 kg/m2 Brown Bush Other [employer] [facility] Other 07-21-2021 12:45-0400 Body temperature 97.4 [degF] Brown Bush Other [employer] [facility] Other 07-21-2021 12:45-0400 Body weight 93.9 kg Brown Bush Other [employer] [facility] Other 07-21-2021 12:45-0400 Diastolic blood pressure 74 mm[Hg] Brown Bush Other [employer] [facility] Other 07-21-2021 12:45-0400 Respiratory rate 20 /min Brown Bush Other [employer] [facility] Other 07-21-2021 12:45-0400 SaO2% (BldA) [Mass fraction] 95 % Brown Easleyban Other [employer] [facility] Other 07-21-2021 12:45-0400 Systolic blood pressure 140 mm[Hg] Brown Easleyban Other [employer] [facility] Other 01-21-2021 12:30-0400 Body height 162.56 cm Brown Easleyban Other [employer] [facility] Other 01-21-2021 12:30-0400 Body mass index (BMI) [Ratio] 35.18 kg/m2 Brown Easleyban Other [employer] [facility] Other 01-21-2021 12:30-0400 Body temperature 97.1 [degF] Brown Easleyban Other [employer] [facility] Other 01-21-2021 12:30-0400 Body weight 92.99 kg Brown Easleyban Other [employer] [facility] Other 01-21-2021 12:30-0400 Diastolic blood pressure 74 mm[Hg] Brown Easleyban Other [employer] [facility] Other 01-21-2021 12:30-0400 Respiratory rate 20 /min Brown Easleyban Other [employer] [facility] Other 01-21-2021 12:30-0400 SaO2% (BldA) [Mass fraction] 96 % Brown Easleyban Other [employer] [facility] Other 01-21-2021 12:30-0400 Systolic blood pressure 128 mm[Hg] Brown Easleyban Other [employer] [facility] Other Encounters Encounter Date Encounter Type Care Provider Facility Start: 04-14-2023 End: 04-14-2023 ambulatory Maximus Parsondano Other [facility] [facility] Other Start: 04-14-2023 Telephone encounter Maximus Parson eva [facility] Start: 03-30-2023 End: 03-30-2023 ambulatory MARCIE BELLAMY Not Available Start: 03-03-2023 End: 03-03-2023 ambulatory Sidney Moore Other [facility] Other Start: 03-03-2023 Telephone encounter Sidney Ball [facility] Start: 02-12-2023 End: 02-12-2023 ambulatory Sidney Moore Other [employer] [facility] Other Start: 02-12-2023 Patient encounter procedure Sidney Moore [facility] Start: 12-29-2022 End: 12-29-2022 ambulatory Sidney Moore Other [employer] [facility] Other Start: 12-29-2022 Office outpatient vi sit 15 minutes Sidney Ball [facility] Start: 11-25-2022 End: 11-25-2022 ambulatory Sidney Moore Other [employer] [facility] Other Start: 11-25-2022 Office outpatient vi sit 25 minutes Sidney Ball [facility] Start: 11-20-2022 End: 11-20-2022 ambulatory Sidney Moore Other [employer] [facility] Other Start: 11-20-2022 Telephone encounter Sidney Ball [facility] Start: 11-12-2022 End: 11-12-2022 ambulatory Sidney Ball Other [facility] [facility] Other Start: 11-12-2022 Telephone encounter Sidney Ball [facility] Start: 11-10-2022 End: 11-10-2022 ambulatory Sidney Ball Other [facility] [facility] Other Start: 11-10-2022 Telephone encounter Sidney Moore FP [facility] Start: 09-07-2022 End: 09-07-2022 ambulatory Sidney Moore Other [facility] Other Start: 09-07-2022 Telephone encounter Sidney Moore FP [facility] Start: 08-14-2022 Documentation procedure Mammog lizeth Coordinator [facility] Start: 08-14-2022 Letter encounter Mammography Coordinator Department Start: 08-14-2022 End: 08-14-2022 ambulatory DAMIÁN ALEXANDER Facility:[facility] Start: 08-14-2022 End: 08-14-2022 Patient encounter procedure Damián Alexander [employer]PER.DYNAMOMETER MECHANIC Work Phone: [facility] Comment on above: Fibrocystic breast c hanges, left (Primary Dx); Personal history of breast cancer; Family history of breast cancer in sister; Encounter for screening mammogram for breast cancer Start: 08-04-2022 Orders Only Damián cee [employer] SOLDER STRIPPER.DYNAMOMETER MECHANIC Work Phone: [facility] Comment on above: Family history of br east cancer in sister (Primary Dx); Encounter for screening mammogram for breast cancer Start: 07-20-2022 End: 07-20-2022 ambulatory Brown Bush Other [facility] [facility] Other Start: 07-20-2022 Office outpatient vi sit 15 minutes Brown Bush [facility] Start: 07-09-2022 End: 07-09-2022 ambulatory Sidney Moore Other [facility] [facility] Other Start: 07-09-2022 Office outpatient vi sit 15 minutes Sidney Moore [facility] Start: 03-05-2022 End: 03-06-[address] SIDNEY MOORE Facility: Start: 03-03-2022 End: 03-03-2022 Encounter for other preprocedural examination Sidney Moore Other [facility] [facility] Other Start: 03-03-2022 End: 03-03-2022 Preoperative cardiovascular examination Sidney Moore Other [facility] [facility] Other Start: 03-02-2022 End: 03-03-[address] SIDNEY MOORE Facility:[facility] Start: 02-10-2022 Adult health examination Jose Moore Other [employer] [facility] Other Start: 01-15-2022 End: 01-15-2022 ambulatory JUS BLANK [facility] Start: 01-15-2022 End: 01-15-2022 Subsequent hospital visit by physician Jus Blank DO Work Phone: [facility] Start: 10-28-2021 End: 10-29-[address] SIDNEY MOORE Facility:[facility] Start: 09-02-2021 Encounter for preprocedural laboratory examination JUS BLANK [facility] Start: 09-01-2021 End: 09-01-2021 ambulatory JUS BLANK [facility] Start: 09-01-2021 End: 09-01-2021 Subsequent hospital visit by physician Jus Blank DO Work Phone: [facility] Comment on above: Post-op pain (Primar y Dx) Start: 08-29-2021 End: 08-30-2021 ambulatory JUS BLANK Facility:[facility] Start: 08-29-2021 End: 08-30-2021 Encounter for preprocedural laboratory examination JUS BLANK Facility:[facility] Start: 08-18-2021 Encounter for preprocedural cardiovascular examination JUS BLANK [facility] Start: 08-18-2021 Encounter for preprocedural laboratory examination JUS BLANK [facility] Start: 08-14-2021 End: 08-15-2021 ambulatory JUS BLANK Facility:[facility] Start: 08-14-2021 End: 08-15-2021 Encounter for preprocedural cardiovascular examination JUS BLANK Facility:[facility] Start: 07-22-2021 Documentation procedure Mammog lizeth Coordinator [facility] Start: 07-22-2021 Letter encounter Mammography Coordinator Department Start: 07-22-2021 End: 07-22-2021 Patient encounter procedure Damián Alexander APRN.DYNAMOMETER MECHANIC Work Phone: [facility] Comment on above: Fibrocystic breast c hanges, left (Primary Dx); Personal history of breast cancer; Family history of breast cancer in sister; Encounter for screening mammogram for breast cancer Start: 07-21-2021 End: 07-21-2021 ambulatory Brown Bush Other [employer] [facility] Other Start: 07-21-2021 Office outpatient vi sit 25 minutes Kamal Rachelle [facility] Start: 07-16-2021 Orders Only Damián cee [employer]DER [employer]IPPER.DYNAMOMETER MECHANIC Work Phone: [facility] Comment on above: Encounter for screen ing mammogram for breast cancer (Primary Dx); Fibrocystic breast changes, left Start: 06-25-2021 End: 06-25-[address] ESCOBAR VICTORIA Facility:[facility] Start: 05-21-2021 End: 05-22-[address] SIDNEY MOORE Facility:[facility] Start: 01-21-2021 Office outpatient vi sit 15 minutes Kamal Rachelle [facility] Start: 02-14-2019 Gynecological examination normal Sidney Moore Other [employer] [facility] Other Procedures Date Procedure Procedure Detail Performing Clinician Start: 09-01-2021 Blood count hemoglobin Cici Davideo Odell DO Work Phone: Start: 09-01-2021 Antibody screen Jus Blank DO Work Phone: Start: 09-01-2021 Blood typing serologic abo Jus Blank DO Work Phone: Start: 06-25-2017 Screening for osteoporosis Sidney Moore Other Plan of Treatment Date Care Activity Detail Author Start: 12-25-2022 Influenza vaccination INFLUENZ A (Season Ended) Start: 04-26-2022 ADVANCE DIRECTIVE DISCUSSION ADVANCE DIRECTIVE DISCUSSION Start: 04-26-2022 DEPRESSION ASSESSMENT DEPRESSION ASS ESSMENT Start: 01-23-2022 COVID-19 VACCINE (5 - Booster for Moderna series) COVID-19 VACCINE (5 - Booster for Moderna series) Start: 01-15-2022 End: 01-15-2022 Ndsc njx implt matrl urt&/bldr nck URETHRAL IMPLANT INJECTION Urinary incontinence, unspecified type 01/15/2022 12:42 PM [facility] Start: 12-25-2021 Influenza vaccination [facility] Start: 09-01-2021 End: 09-01-2021 Anterior colporraphy rpr cystocele w/cysto VAGINAL ANTERIOR REPAIR CYSTOCELE, UTERINE PROLAPSE, URINARY INCONTINENCE 09/01/2021 7:31 AM [facility] Start: 09-01-2021 End: 09-01-2021 HYSTERECTOMY VAGINAL HYSTERECTOMY VAGINAL CYSTOCELE, UTERINE PROLAPSE, URINARY INCONTINENCE 09/01/2021 7:31 AM [facility] Start: 09-01-2021 End: 09-01-2021 Ndsc njx implt matrl urt&/bldr nck URETHRAL IMPLANT INJECTION CYSTOCELE, UTERINE PROLAPSE, URINARY INCONTINENCE 09/01/2021 7:31 AM [facility] Start: 04-26-2021 ADVANCE DIRECTIVE DISCUSSION ADVANCE DIRECTIVE DISCUSSION Start: 04-22-2021 COVID-19 VACCINE (4 - Booster for Moderna series) COVID-19 VACCINE (4 - Booster for Moderna series) Start: 12-25-2020 Influenza vaccination INFLUENZA (#1) Start: 11-27-2020 COVID-19 VACCINE (3 - Booster for Moderna series) COVID-19 VACCINE (3 - Booster for Moderna series) Start: 08-01-2003 BONE DENSITY BONE DENSITY Start: 08-01-2003 PNEUMOCOCCAL: 65+ (1 - PCV) PNEUMOCOCCAL: 65+ (1 - PCV) Start: 08-01-2003 PNEUMOVAX AGE 65 AND OVER WITH 5YR LOOKBACK (#1) PNEUMOVAX AGE 65 AND OVER WITH 5YR LOOKBACK (#1) Start: 1988 SHINGRIX VACCINE (1 of 2) SHINGRIX VACCINE (1 of 2) Start: 08-01-1983 [facility] Start: 1957 DTaP/Tdap/Td vaccine (1 - Tdap) DTaP/Tdap/Td vaccine (1 - Tdap) [facility] Start: 1957 Urine microalbumin profile DTAP,TDAP,TD (1 - Tdap) Start: 1956 Creatinine measurement Creatinine [facility] Start: 1956 Potassium [Moles/volume] in Serum or Plasma Potassium [facility] End: 09-01-2021 INITIATE PACU OXYGEN THERAPY PROTOCOL Initiate PACU Oxygen Therapy Protocol Respiratory Care Routine Continuous until discontinued starting 09/01/2021 [employer] Phone: Comment on above: Continuous until dis continued starting 09/01/2021 End: 09-03-2023 CHRISTINA SCREENING CHRISTINA SCREENING Radiology Routine Encounter for screening mammogram for breast cancer 1 Occurrences starting 08/04/2022 until 09/03/2023 [employer] Work Phone: Comment on above: 1 Occurrences starti ng 08/04/2022 until 09/03/2023 End: 09-13-2023 CHRISTINA SCREENING W LEANNA CHRISTINA SCREENING W LEANNA Radiology Routine Encounter for screening mammogram for breast cancer 1 Occurrences starting 08/14/2022 until 09/13/2023 [employer] Work Phone: Comment on above: 1 Occurrences starti ng 08/14/2022 until 09/13/2023 Oxygen therapy [[facility] Data Set] Initiate Oxygen Therapy Protocol Respiratory Care Routine Daily until discontinued starting 09/01/2021 [employer] Phone: Comment on above: Daily until disconti nued starting 09/01/2021 End: 09-01-2021 , urine POCT , urine POCT Point of Care Testing Routine One Time for 1 Occurrences starting 09/01/2021 until 09/01/2021 [employer] Phone: Comment on above: One Time for 1 Occur rences starting 09/01/2021 until 09/01/2021 End: 08-15-2022 Screening mammography bi 2-view breast inc cad CHRISTINA SCREENING Radiology Routine Encounter for screening mammogram for breast cancer Fibrocystic breast changes, left 1 Occurrences starting 07/16/2021 until 08/15/2022 [employer] Work Phone: Comment on above: 1 Occurrences starti ng 07/16/2021 until 08/15/2022 Surgical Pathology Surgical Path ology Lab Routine Release Upon Ordering for 1 Occurrences starting 09/01/2021 [employer] Phone: Comment on above: Release Upon Orderin g for 1 Occurrences starting 09/01/2021 End: 09-01-2021 SURGICAL PATHOLOGY REPORT SURGICAL PATHOLOGY REPORT Lab Routine Once for 1 Occurrences starting 09/01/2021 until 09/01/2021 [employer] Phone: Comment on above: Once for 1 Occurrenc es starting 09/01/2021 until 09/01/2021 [facility] Immunizations Immunization Date Immunization Notes Care Provider Fa [facility] 02-12-2023 influenza, high dose seasonal, preservative-free Sidney Moore Other [employer] [facility] Other 02-10-2022 influenza virus vaccine, split virus (incl. purified surface antigen) Sidney Moore Other [employer] [facility] Other 11-28-2021 COVID-19 Vaccine Moderna - Documentation Purposes Only Sidney Moore Other [facility] [facility] Other 02-25-2021 COVID-19 Vaccine Moderna - Documentation Purposes Only Brown Bush Other [facility] [facility] Other 01-07-2021 influenza virus vaccine, split virus (incl. purified surface antigen) Sidney Moore Other [employer] [facility] Other 06-27-2020 COVID-19 Moderna Brown langston Other [facility] [facility] Other 05-31-2020 COVID-19 Mallory langston Other [employer] [facility] Other 01-08-2020 influenza virus vaccine, split virus (incl. purified surface antigen) Sidney Moore Other [employer] [facility] Other 02-01-2018 influenza virus vaccine, split virus (incl. purified surface antigen) Sidney Patrick Other [employer] [facility] Other 02-04-2017 influenza virus vaccine, split virus (incl. purified surface antigen) Sidney Patrick Other [employer] [facility] Other 09-01-2016 diphtheria, tetanus toxoids and acellular pertussis vaccine, unspecified formulation Sidney Moore Other [employer] [facility] Other 01-21-2016 influenza virus vaccine, split virus (incl. purified surface antigen) Sidney Patrick Other [employer] [facility] Other 03-06-2015 pneumococcal conjuga te vaccine, 13 valent Sidney Moore Other [employer] [facility] Other 03-04-2015 tetanus and diphther ia toxoids, adsorbed, preservative free, for adult use (5 Lf of tetanus toxoid and 2 Lf of diphtheria toxoid) Sidney Moore Other [employer] Other 02-14-2014 tetanus and diphther ia toxoids, adsorbed, preservative free, for adult use (5 Lf of tetanus toxoid and 2 Lf of diphtheria toxoid) Sidney Moore Other [employer] [facility] Other 11-15-2013 pneumococcal Conjuga te, unspecified formulation; 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: [Need for prophylactic vaccination against Streptococcus pneumoniae (pneumococcus)] Sidney Moore Other [facility] [facility] Other 11-15-2013 pneumococcal polysaccharide vaccine, 23 valent Sidney Patrick Other [facility] [facility] Other 01-27-2010 influenza virus vaccine, split virus (incl. purified surface antigen) Brown Bush Other [employer] [facility] Other Payers Date Payer Category Payer Medicare [id number] 2021 Medicare AETNA MEDICARE A ETNA MEDICARE PPO [id number] 2021-Present [phone] [address] [place] [address] PPO [id number] 2021 Medicare [id number] 2017 Medicare [id number] 1959 Medicare [id number] 1938 Unknown [id number] 1938 Unknown [id number] 1938 Unknown [id number] 1938 Unknown [id number] 1938 Unknown [id number] 1938 Unknown [id number] 1938 Unknown [id number] 1938 Unknown [id number] 1938 Unknown [id number] 1938 Unknown [id number] Medicare [id number] Medicare [id number] Social History Date Type Detail Facility Start: 05-31-2018 End: 08-19-2021 Tobacco smoking status NHIS Ex-smoker End: 04-26-1970 History of tobacco use Current smoker Start: 05-31-2018 End: 08-19-2021 Tobacco use and exposure Smokeless tobacco non-user Start: 07-16-2020 End: 08-14-2022 Alcohol intake Current non-drinker of alcohol (finding) Start: 05-31-2018 History SDOH Alcohol Comment very rare Start: 1940 Sex Assigned At Not on file [facility] Start: 09-01-2021 End: 01-15-2022 Alcohol intake Ex-drinker (finding) [employer] Phone: Start: 08-19-2021 Tobacco Comment 1972 quit [employer] Work Phone: Start: 08-09-2021 End: 01-15-2022 Exposure to SARS-CoV-2 (event) Not sure [employer] Phone: Sex Assigned At Sex Assigned At Bir th [place] [employer] Other End: 04-26-1970 History of tobacco use Cigarette Smoker Medical Equipment Procedure Code Equipment Code Equipment Origin al Text Equipment Identifier Dates System Bulking Proc Bulkamid [facility] - [id number] Start: 09-01-2021 Comment on above: Description: Teddy willard and placed on sterile field System Bulking Proc [employer] Urethral - [id number] Start: 01-15-2022 Comment on above: Description: Teddy willard with surgeon Clinical Notes 01-21-2021 to 04-14-2023 Note Date & Type Note Facility 04-14-2023 Evaluation note Encounter Date Diagnosis Assessment Notes Mar, Mucopurulent chronic bronchitis (ICD-10 - J41.1) [facility] Other 10-20-2023 Evaluation note* Encounter Date Diagnosis Assessment Notes Treatment Notes Treatment Clinical Notes Jan, Medicare annual wellness visit, subsequent (ICD-10 - Z00.00) Personalized health advice was given to the beneficiary including a written plan for screenings discussed and provided. Advanced care planning reviewed and/or information given as requested. Additional counseling was provided here today in regards to, [ ]. The above visit was performed by [ ], under direct supervision of [ ]. Document reviewed and amended by provider signed below. Jan, Type 2 diabetes mellitus with hyperglycemia, without long-term current use of insulin (ICD-10 - E11.65) This patient is following a comprehensive diabetic treatment plan. They are checking their feet daily for calluses and nonhealing ulcers. They are being seen for yearly dilated eye examinations. Goals: SBP less than 130, LDL less than 100, FBS less than 140, A1C less than 7%. They are checking their BS daily, will which are reviewed at the office visit. Continue regular routine monitoring of A1C,] Microalbumin, Dilated eye exam and Foot exam Jan, Type 2 diabetes mellitus with diabetic polyneuropathy, without long-term current use of insulin (ICD-10 - E11.42) Inspect feet daily for cuts and calluses.Recommend diabetic shoes and inserts to prevent callus formation.Fall precautions. Jan, Primary hypertension (ICD-10 - I10) This patient is instructed to consume a healthy, low-fat, low-salt diet. They are also encouraged to continue exercise to achieve/maintain a normal BMI. Jan, Mucopurulent chronic bronchitis (ICD-10 - J41.1) Continue inhalers as prescribed No ER visits due to AE Push fluids, mucolytics as needed. Jan, JUNIE (obstructive sleep apnea) (ICD-10 - G47.33) This patient is aware of the benefits associated with JUNIE: With continued use, the patient reduces the risk for MA, CVA, HTN, cardiac dysrhythmias and sudden cardiac deaths.The patient is also aware of the association between JUNIE and morning headaches, daytime somnolence, fatigue and obesity, which also has been improved with continued use.The patient is compliant with treatment, wearing the equipment every night for greater than 4 hours.The patient is instructed to continue use of the CPAP for JUNIE treatment. Jan, Gastroesophageal reflux disease with esophagitis without hemorrhage (ICD-10 - K21.00) Diet instructions: Smaller portions, avoid eating and laying flat, avoid eating or drinking prior to bedtime. Weight loss. Jan, Elevated cholesterol (ICD-10 - E78.00) Instructed on diet and exercise with continued statin therapy.Discussed the beneficial effects of lowering cholesterol in reducing the risk for cerebrovascular and cardiovascular disease. Jan, Menopause (ICD-10 - Z78.0) Jan, Chronic venous insufficiency (ICD-10 - I87.2) Avoid salt and elevate lower extremities, support stockings, inspect legs and feet daily for blisters and ulcerations. Jan, Autoimmune thyroiditis (ICD-10 - E06.3) Jan, Other specified hypothyroidism (ICD-10 - E03.8) Clinically euthyroid, yearly TSH Jan, Screening mammogram for breast cancer (ICD-10 - Z12.31) [place] [facility] [employer] Other 09-05-2023 Evaluation note* Encounter Date Diagnosis Assessment Notes Treatment Notes Treatment Clinical Notes Dec, Type 2 diabetes mellitus with hyperglycemia, without long-term current use of insulin (ICD-10 - E11.65) Monitor BS closely, would anticipate her BS to increase slightly w/ acute infection. No need to adjust treatment infection. Diabetes increases risk for complicated infection Dec, Acute cystitis without hematuria (ICD-10 - N30.00) Push fluids, tylenol for fever or chills and rest. Begin antibiotics tonight May take up to 48 hours for her symptoms to resolve Dec, Dysuria (ICD-10 - R30.0) [facility] Other 08-02-2023 Evaluation note* Encounter Date Diagnosis Assessment Notes Treatment Notes Treatment Clinical Notes Nov, Type 2 diabetes mellitus with diabetic polyneuropathy, without long-term current use of insulin (ICD-10 - E11.42) Inspect feet daily for cuts and calluses.Recommend diabetic shoes and inserts to prevent callus formation.Fall precautions. Cold sensations likely related. Nov, Type 2 diabetes mellitus without complication, without long-term current use of insulin (ICD-10 - E11.9) This patient is following a comprehensive diabetic treatment plan. They are checking their feet daily for calluses and nonhealing ulcers. They are being seen for yearly dilated eye examinations. Goals: SBP less than 130, LDL less than 100, FBS less than 140, AC and A1C less than 7%. They are checking their BS daily, will which are reviewed at the office visit. Continue regular routine monitoring of A1C,] Microalbumin, Dilated eye exam and Foot exam Nov, Gastroesophageal reflux disease with esophagitis without hemorrhage (ICD-10 - K21.00) Diet instructions: Smaller portions, avoid eating and laying flat, avoid eating or drinking prior to bedtime. Weight loss. Nov, JUNIE (obstructive sle ep apnea) (ICD-10 - G47.33) This patient is aware of the benefits associated with JUNIE: With continued use, the patient reduces the risk for MA, CVA, HTN, cardiac dysrhythmias and sudden cardiac deaths.The patient is also aware of the association between JUNIE and morning headaches, daytime somnolence, fatigue and obesity, which also has been improved with continued use.The patient is compliant with treatment, wearing the equipment every night for greater than 4 hours.The patient is instructed to continue use of the CPAP for JUNIE treatment. Nov, Primary hypertension (ICD-10 - I10) This patient is instructed to consume a healthy, low-fat, low-salt diet. They are also encouraged to continue exercise to achieve/maintain a normal BMI. Nov, Mucopurulent chronic bronchitis (ICD-10 - J41.1) Stable w/ treatment No ER/hosp visits due to AECOPD COntinue maintenance inhaler: LABA/ICS Rare use of DON Nov, Foreign body of righ t eye, initial encounter (ICD-10 - T15.91XA) Eye inspection w/o abnormality found Continue w/ artificial tears. 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 Author Type: Mailing Jogger Type: Progress Notes Filed: 08/14/2022 1:14 PM Note Text: Radiology Service Progress Note PATIENT NAME: Jessica Lao DATE OF SERVICE: August 14, 2022 TIME: 1:13 PM PATIENT IDENTITY VERIFICATION COMPLETED USING TWO (2) IDENTIFIERS: Name and Date of confirmed by patient verbally. FALL SCREENING: Has the patient had 2 falls in the last year or 1 fall with injury or currently using an Ambulatory Assistive Device (Walker, Cane, Wheelchair, Crutches, etc.)? No PATIENT GENDER DATA: Female. status: : No status: NO. PATIENT RELEVANT IMPLANT DATA REVIEWED: Yes RADIOLOGY DEPARTMENT: Mammography PERIPHERAL IV DATA: Not applicable SIGNED BY: Lenard WaldropFeaturespace Stephanie August 14, 2022 1:13 [facility]04-21-2023 NoteHNO ID: [id number] Author: Damián Alexander APRN.DYNAMOMETER MECHANIC Service: ? Author Type: Nurse Practitioner Type: Progress Notes Filed: 08/14/2022 12:46 PM Note Text: moMEDICAL BREAST PATIENT NAME: Jessica Lao REASON FOR VISIT: Annual Exam and Mammogram HISTORY of PRESENT ILLNESS: Jessica Lao is a 82 year old year old postmenopausal Retired female with history of Right breast cancer diagnosed in 1970 returns to the [facility] [place] today her sister (Briana) for annual exam and mammogram. She is an established patient in Breast Center who was last seen on 07/22/21 for annual exam and mammogram with negative findings. She has loss 38 lbs with diet and exercise changes. She had hysterectomy/bladder surgery and recovered with no problems. She denies any breast masses, pain, skin changes or nipple discharge. She denies any new family medical problems. In 1970, she was diagnosed with right breast cancer. She underwent mastectomy. She didn't require any chemotherapy, XRT or endocrine therapy History pertaining to prior breast biopsies, genetic reports, pathology reports, treatment summaries, personal, social and family history has been extracted from my note dated 07/22/21. Her vitamin D level was No results found for: VITD25. She takes mvi. BMD: Yes, per patient report in 2018; results: Osteoporosis PERSONAL BREAST HISTORY: Past breast history (prior to this encounter) is as follows: Breast biopsy: Yes, 1970 Breast cysts: No Breast surgery: Yes, Right mastectomy and left excisional biopsy-benign Breast cancer: Yes, treated as above CANCER SURVEILLANCE: Mammograms: Yes, 07/22/21 results-Negative Breast MRI: No Colonoscopy: Yes, per patient report in 2016, showing diverticulitis RISK FACTORS FOR BREAST CANCER: Age at the onset of menses: 12 years of age. P: 2 Age at the of first child: 19 years of age. She breast fed. Age at menopause: 45 years of age. Post-menopausal hormone therapy: Yes, currently using estrace cream She has an intact uterus and ovaries She is postmenopausal and does not use control. History of Mantle Radiation prior to the age of 30: No Obesity: Yes, Current Weight: 196 lbs Mammographic density: There are scattered fibroglandular densities Personal History of Benign Atypical Breast Biopsy: No Alcohol use: Rare PAST MEDICAL HISTORY: PAST MEDICAL HISTORY Diagnosis Date Diabetes (HCC) Hyperlipidemia Hypertension Hypothyroidism Osteoporosis Patient specifically denies history of: DVT, PE, migraine headaches WITH AURA, migraine headaches without aura, abnormal uterine bleeding, abnormal uterine biopsies, osteopenia and +osteoporosis. PAST SURGICAL HISTORY: PAST SURGICAL HISTORY Procedure Laterality Date BREAST BIOPSY HX Left CHOLECYSTECTOMY MASTECTOMY HX Right 1971 TONSILLECTOMY HX SOCIAL HISTORY: Social History Tobacco Use Smoking status: Former Types: Cigarettes Quit date: 04/1970 Years since quittin.3 Smokeless tobacco: Never Substance Use Topics Alcohol use: No Comment: very rare Drug use: No Caffeine intake: 2 cups / day Exercise: Never FAMILY HISTORY: Reviewed: 4/21/23 Family history of breast cancer: Sister ( Briana) dx 61-alive and well Family history of ovarian cancer: Mother dx 96- Number of sisters: 1 Number of maternal aunts: 3 Number of paternal aunts: 0 Ashkenazi Ancestry: no Has Patient had Genetic Testing? No Other Cancer: Aunt (Gaurang) dx cervical cancer-alive and well; Aunt (Emilee) dx uterine cancer decased There is no family history of prostate, colon, pancreatic, gastric, brain, renal cell or thyroid cancer. There is no family history of melanoma, sarcoma or leukemia. Osteoporosis: Sister dx 72 Stroke: None Blood Clot: None Heart attack: None Thyroid Nodule or Goiter: None Autism: None FAMILY HISTORY Problem Relation Age of Onset Ovarian cancer Mother 96 Breast Cancer Sister 61 Osteoporosis Sister 72 Cervical Cancer Maternal Aunt Uterine Cancer Maternal Aunt MEDICATIONS: fluticasone-salmeterol (ADVAIR DISKUS) 100-50 mcg/dose inhaler Inhale 1 Puff as instructed twice daily. ARMOUR THYROID 60 mg tab Take 60 mg by mouth. aspirin, enteric coated (ASPIRIN, ENTERIC COATED) 81 mg EC tablet Take 81 mg by mouth once daily. cranberry fruit extract (CRANBERRY EXTRACT ORAL) Take 600 mg by mouth. dicyclomine (BENTYL) 10 mg capsule Take 10 mg by mouth before meals and at bedtime. lisinopril (ZESTRIL, PRINIVIL) 20 mg tablet Take 20 mg by mouth once daily. multivit,thx,calcium,iron,mins (MULTIVITAMIN AND MINERAL ORAL) Take by mouth. esomeprazole (NEXIUM) 20 mg capsule Take 20 mg by mouth DAILY (6 AM). Potassium 99 mg tab Take by mouth. conjugated estrogens (PREMARIN) vaginal cream Use vaginally once each week. montelukast (SINGULAIR) 10 mg tablet Take 10 mg by rachid (more content not included)...[facility]04-21-2023 Miscellaneous Notes* Letter - Mammography Coordinator - 08/14/2022 12:34 PM EDT August 17, 2022 PID: [id number] Jessica Lao [address] [place] [address] Dear Ms. Lao, We are pleased to inform you that the results of your recent breast imaging exam on 08/14/2022 are normal. Early detection of cancer is very important. We also understand recommendations regarding breast cancer screening are controversial. Please discuss with your primary care provider which strategy is best for you and whether a mammogram is right for you. Your imaging studies and report will be kept on file at as part of your permanent medical record and are available for your continuing care. Thank you for allowing us to help in meeting your health care needs. Sincerely, Dr. Molina Interpreting Radiologist [facility] (Normal over 40) documented in this encounter04-21-2023 History of Present illness Narrative* Damián Alexander APRN.DYNAMOMETER MECHANIC - 08/14/2022 11:05 AM EDT moMEDICAL BREAST PATIENT NAME: Jessica Lao REASON FOR VISIT: Annual Exam and Mammogram HISTORY of PRESENT ILLNESS: Jessica Lao is a 82 year old year old postmenopausal Retired female with history of Right breast cancer diagnosed in 1970 returns to the [facility] today her sister (Briana) for annual exam and mammogram. She is an established patient in [facility] who was last seen on 07/22/21 for annual exam and mammogram with negative findings. She has loss 38 lbs with diet and exercise changes. She had hysterectomy/bladder surgery and recovered with no problems. She denies any breast masses, pain, skin changes or nipple discharge. She denies any new family medical problems. In 1970, she was diagnosed with right breast cancer. She underwent mastectomy. She didn't require any chemotherapy, XRT or endocrine therapy History pertaining to prior breast biopsies, genetic reports, pathology reports, treatment summaries, personal, social and family history has been extracted from my note dated 07/22/21. Her vitamin D level was No results found for: VITD25. She takes mvi. BMD: Yes, per patient report in 2018; results: Osteoporosis PERSONAL BREAST HISTORY: Past breast history (prior to this encounter) is as follows: Breast biopsy: Yes, 1971 Breast cysts: No Breast surgery: Yes, Right mastectomy and left excisional biopsy-benign Breast cancer: Yes, treated as above CANCER SURVEILLANCE: Mammograms: Yes, 07/22/21 results-Negative Breast MRI: No Colonoscopy: Yes, per patient report in 2017, showing diverticulitis RISK FACTORS FOR BREAST CANCER: Age at the onset of menses: 12 years of age. P: 2 Age at the of first child: 19 years of age. She breast fed. Age at menopause: 45 years of age. Post-menopausal hormone therapy: Yes, currently using estrace cream She has an intact uterus and ovaries She is postmenopausal and does not use control. History of Mantle Radiation prior to the age of 30: No Obesity: Yes, Current Weight: 196 lbs Mammographic density: There are scattered fibroglandular densities Personal History of Benign Atypical Breast Biopsy: No Alcohol use: Rare PAST MEDICAL HISTORY: PAST MEDICAL HISTORY Diagnosis Date Diabetes (HCC) Hyperlipidemia Hypertension Hypothyroidism Osteoporosis Patient specifically denies history of: DVT, PE, migraine headaches WITH AURA, migraine headaches without aura, abnormal uterine bleeding, abnormal uterine biopsies, osteopenia and +osteoporosis. PAST SURGICAL HISTORY: PAST SURGICAL HISTORY Procedure Laterality Date BREAST BIOPSY HX Left CHOLECYSTECTOMY MASTECTOMY HX Right 1971 TONSILLECTOMY HX SOCIAL HISTORY: Social History Tobacco Use Smoking status: Former Types: Cigarettes Quit date: 04/1970 Years since quittin.3 Smokeless tobacco: Never Substance Use Topics Alcohol use: No Comment: very rare Drug use: No Caffeine intake: 2 cups / day Exercise: Never FAMILY HISTORY: Reviewed: 08/14/22 Family history of breast cancer: Sister ( Briana) dx 61-alive and well Family history of ovarian cancer: Mother dx 96- Number of sisters: 1 Number of maternal aunts: 3 Number of paternal aunts: 0 Ashkenazi Ancestry: no Has Patient had Genetic Testing? No Other Cancer: Aunt (Gaurang) dx cervical cancer-alive and well; Aunt (Emilee) dx uterine cancer decased There is no family history of prostate, colon, pancreatic, gastric, brain, renal cell or thyroid cancer. There is no family history of melanoma, sarcoma or leukemia. Osteoporosis: Sister dx 72 Stroke: None Blood Clot: None Heart attack: None Thyroid Nodule or Goiter: None Autism: None FAMILY HISTORY Problem Relation Age of Onset Ovarian cancer Mother 96 Breast Cancer Sister 61 Osteoporosis Sister 72 Cervical Cancer Maternal Aunt Uterine Cancer Maternal Aunt MEDICATIONS: fluticasone-salmeterol (ADVAIR DISKUS) 100-50 mcg/dose inhaler Inhale 1 Puff as instructed twice daily. ARMOUR THYROID 60 mg tab Take 60 mg by mouth. aspirin, enteric coated (ASPIRIN, ENTERIC COATED) 81 mg EC tablet Take 81 mg by mouth once daily. cranberry fruit extract (CRANBERRY EXTRACT ORAL) Take 600 mg by mouth. dicyclomine (BENTYL) 10 mg capsule Take 10 mg by mouth before meals and at bedtime. lisinopril (ZESTRIL, PRINIVIL) 20 mg tablet Take 20 mg by mouth once daily. multivit,thx,calcium,iron,mins (MULTIVITAMIN AND MINERAL ORAL) Take by mouth. esomeprazole (NEXIUM) 20 mg capsule Take 20 mg by mouth DAILY (6 AM). Potassium 99 mg tab Take by mouth. conjugated estrogens (PREMARIN) vaginal cream Use vaginally once each week. montelukast (SINGULAIR) 10 mg tablet Take 10 mg by mouth daily at bedtime. triamterene-hydrochlorothiazide (MAXZIDE) 75-50 mg per tablet Take 1 tablet by mouth once daily. ALLERGIES: ALLERGIES Allergen Reactions Penicillins Mental Status Change, Other: See Comments She felt like she was going to pass out REVIEW OF SYSTEMS: She denies chest pain, shortness of breath, persistent cough, severe headaches, unusual bony pains,abdominal pain or unintentional weight loss. PHYSICAL EXAM: Wt 88.9 kg (196 lb) BMI 33.64 kg/m General: well-nourished, healthy, white, female, alert and oriented x 3, calm Skin: warm, dry, skin color, texture, turgor normal Head/Eyes: normocephalic, atraumatic and anicteric Lymph nodes- The supraclavicular, axillary, and cervical regions are free of significant lymphadenopathy. Right breast-S/p mastectomy with well healed incision an no evidence of local recurrence. Left breast- The skin, nipple, and areola appear normal. There is no skin dimpling with movement ofthe pectoralis. There is no nipple retraction. No discharge can be elicited. The parenchyma is moderately fibrocystic. There is no dominant masses in the breast. The axillary tail is normal. There isno tenderness noted with palpation. IMAGING: Bilateral Screening Mammogram was completed today in [facility] today an she will be notified offindings. The tissue of both breasts is predominantly fatty. There are benign post operative findings in the right breast. There is no mammographic evidence of malignancy Assessment IMPRESSION/PLAN: Jessica Lao is a 82 year old year old female with History of Right Breast Cancer, IncreasedRisk for Breast Cancer due to FH and Excess weight There is no evidence of malignancy. The clinical and mammographic breast findings were discussed indetail. Breast MRI is NOT ROUTINELY recommended for screening following a cancer diagnosis and is NOT recommended for women who have undergone bilateral mastectomy procedures unless otherwise clinically indicated. MRI is recommended for breast cancer survivors with remaining breast tissue who: - Have a history of chest irradiation under the age of 30. - Carry germline mutations conferring increased cancer risk (BRCA1, BRCA2, PTEN, TP53, CDH1, STK11,PALB2, CHEK2, ELISABETH) Per [facility] High Risk Care Path recommendations, screening breast MRI may be considered for women underthe age of 65 with remaining breast tissue in the following situations: - Age at breast cancer diagnosis under 50 - Mammographically dense tissue (BI-RADS category 3 or 4) - History of invasive lobular breast cancer She doesn't meet [facility] care path guidelines for MRI of breast. This will be reserved for use if medically necessary . Genetics referral made: we discussed this in depth last encounter and she declined. I didn't bring this up today. Chemoprevention discussion: N/A The patient is advised to exercise regularly, achieve/maintain ideal body weight, and to limit alcohol consumption to less than 7 drinks weekly for breast cancer risk reduction and overall health. She was commended on weight loss efforts She will return in one year for bilateral digital mammogram and clinical evaluation. She will call me in the interim should she have any questions or concerns. I spent a total of 28 minutes on the date of the service which included preparing to see the patient, [id number] patient care, completing clinical documentation, obtaining and/or reviewing separately obtained history, performing a medically appropriate examination, counseling and educating the pat ient/family/caregiver, ordering medications, tests, or procedures, communicating results to the patient/family/caregiver, and care coordination (not separately reported). Damián Alexander APRN.CNP Medical Breast Specialist Women's Health Nurse Practitioner CC: documented [place] [id number] Nurse Note* Argelia Muhammad Ma - 08/14/2022 10:55 AM EDT Last mammogram on: 07/22/21 Results: see report Is the patient active on MyChart Yes Electronically Signed By: Argelia Muhammad Ma In Department: [facility] REVIEW OF PATIENT HISTORY: OB History T2 L2 SAB0 IAB0 Ectopic0 Multiple0 Live Births0 Comment: Menarche: 12; Age at 1st : 19; Post menopausal FAMILY HISTORY Problem Relation Age of Onset Ovarian cancer Mother 96 Breast Cancer Sister 61 Osteoporosis Sister 72 Cervical Cancer Maternal Aunt Uterine Cancer Maternal Aunt PAST MEDICAL HISTORY Diagnosis Date Diabetes (HCC) Hyperlipidemia Hypertension Hypothyroidism Osteoporosis PAST SURGICAL HISTORY Procedure Laterality Date BREAST BIOPSY HX Left CHOLECYSTECTOMY MASTECTOMY HX Right 1971 TONSILLECTOMY HX Social History Tobacco Use Smoking status: Former Types: Cigarettes Quit date: 04/1970 Years since quittin.3 Smokeless tobacco: Never Substance Use Topics Alcohol use: No Comment: very rare Drug use: No documented in this encounter03-27-2023 Evaluation note* Encounter Date Diagnosis Assessment Notes Treatment Notes Treatment Clinical Notes Jun, Mild intermittent asthma without complication (ICD-10 - J45.20) Jun, JUNIE (obstructive sleep apnea) (ICD-10 - G47.33) [facility] Other 03-16-2023 Evaluation note* Encounter Date Diagnosis Assessment Notes Treatment Notes Treatment Clinical Notes Jun, Acute non-recurrent maxillary sinusitis (ICD-10 - J01.00) Instructed to use Robitussin or Mucinex for cough, saline or Flonase NS for congestion, Tylenol for pain and fever. Jun, Dysfunction of right eustachian tube (ICD-10 - H69.81) Flonase NS daily Valsalva maneuver daily Jun, Type 2 diabetes mellitus with diabetic polyneuropathy, without long-term current use of insulin (ICD-10 - E11.42) Inspect feet daily for cuts and calluses.Recommend diabetic shoes and inserts to prevent callus formation.Fall precautions. Jun, Type 2 diabetes mellitus without complication, without long-term current use of insulin (ICD-10 - E11.9) This patient is following a comprehensive diabetic treatment plan. They are checking their feet daily for calluses and nonhealing ulcers. They are being seen for yearly dilated eye examinations. Goals: SBP less than 130, LDL less than 100, FBS less than 140, AC and A1C less than 7%. They are checking their BS daily, will which are reviewed at the office visit. [facility] Other 09-16-2022 Hospital Discharge instructions* Discharge Instructions* Veronique Martinez RN - 01/09/2022 8:23 AM EDT Images from the original note were not included. POSTOPERATIVE PATIENT INSTRUCTIONS MAJOR & MINOR SURGICAL PROCEDURES Congratulations! You have taken the brave step of undergoing a surgery in order to try to improve your health. Now it is time to focus on healing outside of the hospital / surgery center setting. To make your dismissal as successful as possible, it is recommended that you thoroughly review these postoperative instructions. These instructions pertain to, but are not limited to the following procedures: MAJOR Hysterectomy - Vaginal / Laparoscopic / Robotic With or Without tube-ovarian Removal (Salpingo-oophorectomy) Sacrocolpopexy / Sacroperineopexy / Sacrocervicopexy (Lifting the vagina / cervix to the sacrum) Major Vaginal Prolapse repairs Cystocele repair (Anterior Colporrhaphy) Rectocele repair (Posterior Colporrhaphy) Enterocele repair Vaginal vault repair Closing or removal of the vagina (Colpocleisis / Colpectomy) Major urinary incontinence surgery (Walker Urethropexy, MMK) Major fibroid removal (Myomectomy) Major tubal surgery (re-anastomosis, ectopic , pelvic inflammatory disease) Major surgery for adhesions or endometriosis involving bowel Major vaginal mesh removal Fistula repair of the bladder or colorectum to the vagina Creation of a new vagina (Neovaginoplasty) or repair of a Mullerian Anomaly Other MINOR Hysteroscopy with Dilatation / Curettage, Endometrial Ablation Laparoscopy With or Without minor tubal or ovarian surgery Minor Vaginal Prolapse repairs Cystocele repair (Anterior Colporrhaphy) Rectocele repair (Posterior Colporrhaphy) Urethrocele repair Minor urinary incontinence surgery (Slings, Transurethral Bulking) Minor vaginal surgery (Mesh removal, Laser ablation, Biopsies, Labial revisions, Injections) Minor surgery of the bladder (DMSO, Hydrodistention, Botox, etc.) Other 1 POST OPERATIVE BASIC INSTRUCTIONS The office will call on the Wednesday, or within 1 week, after your surgery to make sure you are doingwell and to answer questions. Your 1st post-op visit will occur within 1-2 weeks after your surgery. Your final post-op visit will occur @ 4-6 weeks depending on the surgery & your desire to return to work. Your surgery and recovery may require more visits in between the 1st and final visits. DO S, DONT S, & WHEN TO CALL As reviewed with you on the morning of your discharge, for the 1st week out of surgery below is a QUICK list of DO s, DONT s, and WHEN TO CALL: 5 THINGS YOU MAY DO 5 THINGS YOU MAY NOT DO FOR 4-6 WEEKS -Shower with Ivory Soap and water -Tub bathe, hot tub, or swim -Gradually increase walking -Heavy lifting > 15lbs (2 gallons worth) -Go up and down stairs slowly -Insert anything into the vagina (sex, douching, tampons) -Drive a car / motorcycle (*See -Light housecleaning (dusting, dishwashing) Special Considerations) -Short local travel (restaurant, episcopalian) -Long distance travel > 1.5 hours (*See Special Considerations) 5 SYMPTOMS TO CALL FOR: -Sustained fever >100.4 despite Tylenol or a cold shower, especially associated with redness of incision/s -Pain out of the ordinary (>7) despite pain meds / anti-inflammatories -Heavy vaginal bleeding > 1 pad / hour with large red clots -Inability to eliminate urine (especially if catheterized) or flatus / stool (with sustained distention & nausea) -Calf pain or extreme shortness of breath QUESTIONS, CONCERNS, EMERGENCIES Please call the office with any questions or concerns at [phone]. If during office hours, your issue may require an appointment. If after hours, the answering service will connect you with the physician Director Information. If you are concerned that your issue may be emergent, PLEASE CALL FIRST. Many issues may be resolved over the phone and avoid an unnecessary and expensive ER visit. If you truly have an emergency related to the surgery and call first: *You will be directed to the hospital ER in which you had your surgery. [facility] primarily or [facility] rarely. [facility] patients may be asked to report to [facility] if Dr. Blank s on-call partner is assuming responsibility. Calling first helps to expedite your care and avoids an unnecessary and expensive ambulance transfer to [facility]. Dial 911 or go to your closest ER if your emergency is related to a potential heart attack or stroke. 2 DISCHARGE MEDICINES Columbus 325/5mg tablets or alternative narcotic. Take 1-2 tablets by mouth every 4-6 hours as needed for pain. Per [facility] Board of Pharmacy laws, only 1 week of narcotics may be prescribed at a time. Do not take extra Tylenol (Acetaminophen) orally as Columbus already contains the medicine. May take 500mg orally every 4-6 hours if off of Columbus. * Ibuprofen 400-800mg is safe to take. Take 1 tablet by mouth every 8 hours for inflammation. Senokot - S. Take two tablets by mouth every night to prevent constipation. Stop if loose stools occur. If an antibiotic is required: Keflex 250-500mg take 1 tablet by mouth 3x / day as prescribed OR Cipro 250-500mg take 1 tablet by mouth 2x / day as prescribed Other medicines or antibiotics may be prescribed based on your postoperative course or situation. *You may resume taking any medications you were taking before your surgery, unless told otherwise. DUE TO BLEEDING RISK, DO NOT RESUME HOME ANTICOAGULANTS UNLESS DISCUSSED SPECIAL CONSIDERATIONS After surgery, give yourself a chance to adjust and recover. Some patients feel fine within a month. Many need a little extra time. Do not be concerned if you feel fatigued for the first month, your body is recovering. It may take several weeks for you to get your energy back. Even if energy has returned, please do not be tempted to re-engage in strenuous activity. Although mild weight gain is not uncommon, most of it is IV fluid weight that your body will remove with time. 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 Once you have fully recovered, you may focus on enjoying your life. Keep in mind, you will continue to heal for 6-12 months after surgery, so use common sense to protect your surgery (avoid repetitive heavy lifting, constipation, chronic pelvic strain.) In particular, if you had a hysterectomy, you may have both physical and emotional effects that maybe brief or longwall shearer operator. After hysterectomy, periods will stop and a woman can no longer achieve . Despite popular myth, post-hysterectomy weight gain is not due to the hysterectomy, but is usually a result of other factors. A depressive emotional reaction to loss of the uterus is not uncommon or abnormal. Please discuss any concerns with your health care provider if persistent. Sexual response may change after hysterectomy. There are no definitive studies showing decreased orgasmic potential post-hysterectomy. Some women have a heightened response due to correcting painful pathology. O varian removal may decrease estrogenization, leading to vaginal dryness and menopausal hot flashes.Hormonal therapy may need to be discussed. SOME SURGERIES HAVE SPECIAL CONSIDERATIONS MAJOR For all major surgeries listed above, you may drive after your 1week post-op visit if cleared, havediscontinued narcotic pain meds, and are able to depress the brake quickly without pain. Long distance travel may be resumed in 4 weeks if stable. With major robotic hysterectomy, you should refrain from intercourse for 8 weeks, other hysterectomies 6 weeks. MINOR Minor surgeries may drive next day any distance if off narcotic pain meds and are able to brake safely. For minor vaginal surgeries for prolapse and / or urinary incontinence procedures, maintain pelvic rest for 4 weeks. Exercise and work may be resumed within 2-4 weeks depending on healing. For minor surgeries of the vagina, uterus, and bladder, hysteroscopy, D&C, and laparoscopy, maintain pelvic rest for 1-2 weeks depending on healing. Exercise and work may be resumed within the week. 3 CONSENT ITEMS REVISITED IN THE POST OPERATIVE PERIOD Physical and sexual activity will be restricted in varying degrees for an indeterminate period of time, but most often 2-8 weeks depending on the breadth of surgery. It is impossible to list every undesirable effect and that the condition for which surgery is done is not always cured or significantly improved, and in rare cases may even worsen. There is no 100% guarantee that the planned surgery, despite everything being done correctly and tothe medico-surgical standard with resolve a condition 100% including but not limited to pain, urinary infections, bladder function, or defecatory dysfunction. Specifically, up to 20% of patients withabdominopelvic pain, 27% of those with UTI's, 16-26% with urinary incontinence or voiding dysfunction, and 40% with defecatory dysfunction may not see substantial long lasting improvement from a surgical intervention. Dangerous blood clots in the legs or lungs may occur post-operatively. Patients on chronic blood thinners, particularly those without antidote, may be at significant risk of bleeding, hemorrhage, hematoma formation, need for transfusion, and over the regular population. Life-threatening bleeding complications may even occur up to 4 weeks out of surgery even if anticoagulation is managed appropriately. If the patient has been taken off anticoagulation because of bleeding, this could exposeher to life-threatening blood clots in the legs or lungs, MA, or stroke. Elderly patients over the age of 70 may experience up to a 2% mortality rate in the postsurgical period related to comorbidities and declining health. A living will and is recommended to be reviewed. For major outpatient procedures requiring less than a 24 hour stay, you will be dismissed from the hospital or surgery setting when stable and meets criteria for discharge. Less than 5% of patients may rebound to an emergency setting for some of the risks mentioned above even though they have met criteria for dismissal earlier. Outpatient surgical recovery usually occurs between 2 and 4 weeks. For major inpatient procedures requiring an average 1-3 day hospital stay, and the patient may not be fully recovered from major surgery for up to 6- 8 weeks. Please understand with Medicare and insurance reform, only 1 night will be approved for most reconstructive or robotic procedures. In regards to reconstructive pelvic and incontinence surgery: Approximately 85% of patients experience a reasonable improvement >5 years in pelvic support andurinary/fecal incontinence, as well as urinary infections, after the procedure. There is a long-term risk of recurrent prolapse in up to 30% of women who have undergone reconstructive surgery if healthy lifestyle behaviors are not maintained. This includes but is not limited to smoking cessation, weight loss in the obese, reduction in heavy lifting, exercise, fall prevention, and bowel regularity. Reconstructive pelvic and/or urinary/fecal incontinence surgeries may only improve your condition/s mildly and may not completely resolve problems including but not limited to urinary tract infection s and/or defecatory dysfunction. 17% of patients may still get a urinary tract infection and 40-60%of patients may still experience constipation postoperatively. It may be hard to urinate for a few days or weeks. Sometimes, up to 40% of women cannot urinate efficiently after surgery due to swelling, anesthesia, or pain. Prolonged urinary retention may rarely occur after an incontinence or pelvic prolapse surgery and is more likely if retention predates surgery or includes factors that are not limited to neuropathy, diabetes mellitus, or prior pelvic surgery. The patient may need a catheter to drain the bladder for 1-2 weeks on average. Patients in Dr. Blank's practice most often prefer a transurethral Galindo. Other choices are a suprapubic catheter or intermittent self- catheterization. The patient has been given instructions on how to manage the typeof catheter chosen, which will be reiterated postoperatively. Despite evidence indicating no need for antibiotics with a catheter, real world experience shows a 20-40% rate of UTI with a Galindo catheter which depending on personal risk factors and extent of surgery, may require a prophylactic antibio tic afterwards. Antibiotics have risks of resistance, diarrhea and C. difficile infection. Suprapubic catheters carry a risk of urinoma, bowel injury, and bleeding and have a UTI risk of 15-20%. Intermittent self-catheterization carries an 11% risk of a UTI. In regards to labial or perineal reconstructive surgery: You should expect some bruising and mild swelling with related discomfort following these surgeriesthat lasts 1-2 weeks. Ice packs and sitz baths may be utilized after surgery to help minimize swelling and discomfort. Mild analgesics are also used. Final optimal results can usually be appreciated in several months. Most patients may return to work or school within a week after surgery; however, strenuous activity or tight clothing is discouraged and patients must refrain from sexual intercourse for 4-6 weeks after surgery. You may receive a topical antibiotic, which reduces risk of infection. Mild bleeding is not uncommon and can occur postoperatively if strenuous activity or intercourse is begun too early. Problems with healing, such as incision separation, suture popping, scarring, and/or pain following the surgeryare rare but can happen. 4 SPECIAL INSTRUCTIONS IF MRSA POSITIVE * Continue Bactroban to the nares 2x / day for 2 weeks post-operatively. Since many people are colonized in the community, it is not something we will routinely culture for post-operatively. TO PREVENT BLOOD CLOTS IN THE LEGS OR LUNGS / PNEUMONIA IN THE LUNGS Regular walking or calf stretches and wearing a supportive hose may help prevent clots in the legs or lungs. If interested, home pneumatic cuffs are available for purchase through the office if you wish to continue these at home. Take home your incentive spirometer and utilize it as instructed to prevent pneumonia. * Smoking cessation before and after surgery is strongly encouraged. VAGINAL BLEEDING & DISCHARGE You will likely experience light bleeding with the potential for small dime size clots, lasting 2-3weeks after your surgery. This should not be construed as heavy bleeding. You may notice an increase in vaginal discharge 4-6 weeks after your surgery, which may be watery, yellowish, or pinkish. It may have more of an acidic odor. This is common as the vagina flushes out edematous body fluid and dissolves the absorbable sutures. As the healing process progresses, you may experience mild itching within the vagina, as well as outside the vaginal opening. If this itching become severe, and/or is accompanied by a foul smell and swelling, please call the office. DRAINS & WOUND CARE If a drain or specific wound care appliance is present at the time of dismissal, please follow additional instructions that may be provided regarding maintenance of the device/s. Basic daily maintenance of a drain is as follows: You may wash around the drain site with warm, soapy water and pat dry with a towel. If indicated, use a topical antibiotic around the drain site 2x / day. Strip or milk the drain from the drain site to the bulb suction 3x / day. This clears any blockage from the drain. Simply pinch the drain at its insertion site into your body between your thumb and forefinger. Thensqueeze and pull the drainage tubing as you move towards the drain bulb, allowing the tube to slidebetween your fingers with mild resistance, you should see a suction effect within the drain tube that moves fluid toward the bulb. Please call the office immediately if the drain falls out or cannot maintain suction. Please call if redness of the drain site increases and is associated with fever, pain, or purulent discharge. CONSTIPATION * Patients are often constipated after a prolonged period of bed rest, or with the use of oral narcotic pain medications. If you have not had a bowel movement for 3 days after you are dismissed from the hospital, or are uncomfortable and unable to pass stool, please try one or all of the following measures in a stepwise manner: Eat fruits, vegetables, prunes & whole-grain foods. Drink 8 glasses of fluid daily. Add PlumSmart juice. Metamucil, FiberCon, or other bulking medication - use as directed Milk of magnesia - 30 mL s by mouth every 12 hours Dulcolax suppository - 1 suppository per rectum every 4-6 hours Fleets enema - use as directed unless told nothing per rectum (colorectal fistula repair) BLADDER DRAINAGE There is a >70% chance you will void on your own post-operatively. In particular to reconstructive and incontinence surgeries (whether you had incontinence before surgery or not), sometimes surgical effects of normal swelling and new positioning of the bladder may be associated with some mild tomoderate postoperative urinary leakage. Often this leakage is urge related. As discussed pre-operatively, up to 26% of patients with prolapse and negative urodynamic testing may develop de nevaeh incontinence afterwards. Please do not be frustrated if temporary incontinence occurs for it will most likely improve as you continue to heal. Leakage rarely persists long-term, there are many options for t reatment, and Dr. Blank and his office staff are there to help you every step of the way. 5 [facility] The patient, (name), has been discharged from the hospital / surgery center on (date) from her operation. The patient has been given the appropriate postoperative instructions and they have been reviewed thoroughly with the patient and her family as necessary. The patient voices understanding and all questions have been answered to her and / or her family s satisfaction. Regarding her voiding ability at the time of discharge from the hospital: [ ] Patient was able to void on her own. (*RN to remove pages 7-16*) [ ] The patient was discharged with an indwelling Galindo catheter and will do clamping trials at home. She will need a voiding trial at the office in 1 week. (*RN to include pages 7-10,15,16 & remove pages 11-14*) [ ] The patient was discharged with an indwelling Galindo catheter and bladder rest. She will not undergo a voiding trial unless directed by Dr. Blank at the first post-operative visit. (*RN to include pages 7-10,15,16 & remove pages 11-14*) [ ] Patient was taught intermittent self-catheterization. (*RN to include pages 7,8,11,15,16 & remove pages 9,10,12-14*) [ ] The patient was discharged with a suprapubic catheter. (*RN to include pages 7-10,12-16 & remove page 11*) RN Signature Date Patient or Family Member Signature Date FAX COMPLETED FORM TO: Jus Blank, FAX: [phone] (Patient Sticker Here) 6 BLADDER DRAINAGE FOR THOSE PATIENTS REQUIRING A CATHETER Conversely, it may be hard for you to urinate for a few days or weeks. Sometimes, up to 30-40% of women cannot urinate efficiently after surgery due to swelling or anesthesia. This may last a few hours to a few weeks. You may be required to use a catheter in your bladder to help it drain and retrain it to work properly. One kind of catheter, called a Transurethral Galindo Catheter, may be placed into the bladder through the urethra. This is usually reserved for large pelvic reconstructive surgeries and timely recovery. Some patients prefer to use a catheter intermittently to empty their bladder. This is called Intermittent Self-Catheterization (ISC). It is an easy technique to learn and helps to lessen the threat of urine infection. A third kind of catheter is called a Suprapubic Catheter (SPC). This catheter is placed through a small incision in the abdomen. A SPC is good for elderly patients or those whoare obese and may not be able to insert a catheter, or for complex bladder surgery requiring delayed recovery. Other tubes may help drain fluid from your incision/s. Unless instructed to maintain a catheter to drainage or to rest, you will begin plugging the end ofyour catheter with a small plastic plug in the hospital, and you will leave it plugged for set intervals of time. You will continue this upon dismissal. While your catheter is plugged, the urine willnot drain out of it, and your bladder will fill like it always has naturally. You will be sent home with a smaller day bag that straps to your leg for mobility plus a larger night bag to allow you torest all night without the need to drain the bag, and cleansing supplies. If you have a Transurethral Galindo Catheter, plugging of the catheter helps to wake up the bladder and increases capacity. By the time you come in for your 1st postoperative visit, 95% of patients will be ready to pass a voiding trial and have the catheter removed successfully. During daytime, try plugging until you are comfortably full, then drain your bladder through the catheter. Your goal should be 2-4 hours of plugging between bladder emptying. You may put your catheter to drainage at night. If you are performing Intermittent Self-Catheterization, you should attempt to urinate every hour or so and then catheterize at the end of the time interval to measure how much urine is left in the bladder by emptying the catheter into the measuring hat. If you have a Suprapubic Catheter, during the time that your catheter is plugged, you should attempt to urinate naturally every hour or so. At the end of the time interval, measure how much urine is left in the bladder by emptying the catheter into the measuring hat. 7 You will not begin progressing through the different intervals of the suprapubic plugging or catheterization routine until you are able to urinate normally through your urethra. Until this happens, you will repeat the 4 hour interval over and over. When you have started urinating normally, you willmeasure how much is left in your bladder at the end of each interval and make a decision about whether you may progress to the next time interval. Please see the respective catheterization routine pertinent to the type of catheter that you may have. Until the 12 hour interval is reached, the catheter should be hooked to the drainage bag every night to drain. After the 1st successful 24-hour interval, please call the office to update one of the nurses. Troubleshooting the Catheter It is not uncommon for the transurethral or suprapubic catheter to leak around the urethra or skin incision respectively as the bladder gets too full. If you have problems with this type of leaking, drain your bladder through the catheter. If leakage continues, reconnect your catheter to the Galindo bag until the next morning, then restart the plugging routine. Please call the office with continuedleakage problems. Removing the Catheter The catheter is held in place inside your bladder by a water-filled balloon. Cutting the collar (next to the end of the part you ve been plugging) will cause the water inside the balloon to empty out, and the balloon will deflate. You may then remove the catheter by pulling on it gently. Things to Remember You do not need to measure how much you urinate, ever. You need only to measure how much is left inyour bladder (which gets drained from the catheter) at the end of each plugging interval. This is known as the residual urine. You do not have to measure this residual every time you urinate normally; only at the end of the plugging interval. You may find it easier to use the Galindo bag at night to collect your urine. Doing this prevents youfrom having to get up in the night to drain your bladder. If you use the Galindo bag, simply restart your most recent plugging interval when you wake up (for example, if [facility], start at this interval routine in the morning.) The site where a catheter is inserted into the urethra or abdomen may become pinkish, purplish, or develop a pus-like or crusty substance around it. These are your body s reactions to the catheter s presence, and are very normal. You may wash around the catheter daily with soap and water. Rinse anddry these areas well. You may shower while wearing the catheter. Maintain good personal hygiene. Ifthis site develops a redness that spreads, or is warm and painful to the touch, please call the office immediately. When changing from one bag to another, using a clean leg bag or Galindo bag and an alcohol prep. Washyour hands thoroughly with soap and water and swab the end of the drainage tubing that will be attached to the Galindo catheter. Disconnect the drainage bag from the Galindo catheter and put the bag aside. Attach a clean bag to the catheter. Wash your hands thoroughly afterwards. To clean the bags simply empty the urine from the bag and leave the spout open for cleaning. Mix a cup of vinegar and cup of cool water and flush the bag using a 50 mL syringe, or by submerging the bag under the mixture. Once the bag is filled, close the spout and allow the liquid to stay in the bag for 30 minutes. Drain the cleaning solution and rinse the bag again with tap water. Hang dry with the cap off and the spout open. A commercially prepared urinary appliance industrial cleaner may also be used as instructed. It is important that when it is time to remove the catheter, do so in the morning, because you willneed to urinate every 30-60 minutes on the day that you remove it. This is to keep the bladder empty and compressed, and to allow itself to heal. This is especially important for the suprapubic incision for those with suprapubic catheters. After removing the suprapubic catheter in particular, cover the site with a Band-Aid for the 1st 24-48 hours. Drink at least 2 quarts of liquid a day. Avoid caffeinated drinks as they may irritate the bladder and cause bladder spasms. Please remember to call the office once a week until the catheter is removed with an update on yourprogress. 8 HOW TO CARE FOR YOUR GALINDO CATHETER - FEMALE About this Topic: Galindo catheter is a thin, flexible tube that drains urine from your bladder. The catheter connects to a special bag. The bag holds the urine until you are able to empty the bag. Youmay need to have a catheter for a short time. You may need a catheter after you are sick or have had surgery. Sometimes a catheter is used for a long time. What Will the Results Be: Your urine will drain and you will prevent infection. What Care is Needed at Home? Ask your doctor what you need to do when you go home. Make sure you ask questions if you do not understand what the doctor says. This way you will know what you need to do. Your doctor may order a home health nurse to come to your house to help you learn to care for your catheter. Prevent infections: Wash your hands before and after handling your catheter. If you switch between a leg bag and an overnight drainage bag, be sure you clean the connection between the catheter and the bag before you switch bags. Ask your doctor what to use to clean the connection. Place a cap on the drainage bag you are not using and store in a clean towel. Rinse the empty drainage bag not in use with 1 cup vinegar mixed with 1 cup water. Care for the tube: Wash the skin around the catheter with soap and water each day. Pat the skin dry. Do not put anything on the tube. Keep the tube secure. Do not let the tube pull or catch when you are moving around during the day. Do not let the tube kink or loop. Care for the Drainage Bag: Keep your urine bag below your bladder. Drain the bag often to help keep you from getting an infection. Wear cotton underwear. What Follow-Up Care Is Needed? Your doctor may ask you to make visits to the office to check on your progress. Be sure to keep these visits. 9 What Lifestyle Changes are Needed? Drink 6-8 glasses of water every day. Take showers rather than soaking in a bath. Will Physical Activity Be Limited? Talk to your doctor about what you can and cannot do when the catheter is in place. What Problems Could Happen? The catheter has a balloon to hold it inside the bladder. The balloon can break or leak and the catheter can fall out. Urine flow stops or is blocked by kinks or bends in the tube or if the drain bag is kept higher than your bladder. You may see blood in the collecting tube or bag. Bladder infection. When Do I Need To Call the Doctor? Signs of infection like a fever of 100.4F (38C) or higher, chills, pain around the catheter, redness or swelling of the skin around the catheter. Urine has blood and it is dark or coffee colored, or is pus-like. Tube comes out or urine stops flowing. Burning or painful feeling in your bladder. You are not feeling better in 2-3 days or you are feeling worse. Teach Back: Helping You Understand The Teach Back Method helps you understand the information we are giving you. The idea is simple. After talking with the staff, tell them in your own words what you were just told. This helps to makesure the staff has covered each thing clearly. It also helps to explain things that may have been abit confusing. Before going home, make sure you are able to do these: I can tell you about my condition. I can tell you how to prevent infection and care for the tube and bag of my Galindo catheter. I can tell you what I will do if my urine stops flowing or there is a burning or painful feeling inmy bladder. 10 Intermittent Self-Catheterization (ISC) Instructions After your operation, you may experience swelling around the bladder and urethra. Swelling may limit the ability to pass urine naturally through your urethra. Intermittent Self-Catheterization (ISC) will allow you to pass your urine until this swelling subsides. This technique prevents discomfort from bladder over distention. By following the simple routine below, you will be able to use ISC to empty your bladder until yournatural ability to pass urine gradually returns. You will find that as your ability to pass urine naturally improves, the need for ISC will be less. On average, a woman should expect to have use ISC from 2 to 4 weeks. You may reuse catheters by cleaning them in hot soapy water if low on supplies. Attempt to pass urine naturally as often as you like. At first, do not be surprised if you cannot pass urine in very small amounts. Try to void naturally immediately before each self-catheterization. 3. During the day, self-catheterize every 3 - 4 hours to ensure bladder emptying. Use your non-dominant hand to gently spread your labia and wipe your urethra with a soap wipe. Use your dominant hand to introduce the catheter into the urethra until urine flow starts and then stops. Measure the residual urine drained out of the catheter at the end of each interval. Use the measuring hat. If your catheterized amount is 400 ml or more, self- catheterize more often (every 2 -3 hours). Start out with a self-catheterization schedule of every 3 - 4 hours if possible. This is equivalent to self-catheterizing 6 - 8 times per day. When the amount catheterized is less than 150 ml on 2 occasions, increase your catheterization interval to every 6 hours, or 4 times per day. When the amount catheterized is less than 150 ml on 2 occasions, increase your catheterization interval to every 8 hours, or 3 times per day. When the amount catheterized is less than 150 ml on 2 occasions, increase your catheterization interval to every 12 hours, or 2 times per day. When the amount catheterized is less than 150 ml on 2 occasions, increase your catheterization interval to every 24 hours, or 1 time per day. Once the amount catheterized at the 24 hour interval is less than 150 ml on 1 occasion, self-catheterization may be stopped. SPECIAL INSTRUCTIONS Call Dr. Blank's office at [phone] on a weekly basis to report to Briana on your progress. Call Dr. Blank with the following problems: Symptoms of a urinary infection (pain, burning, urgency, frequency, or blood). Fever greater than 100.4 F on 2 occasions 4 hours apart. The inability to pass urine through the catheter. 11 Suprapubic Catheter Instructions After your operation, you may experience swelling around the bladder and urethra. Swelling may limit your ability to pass urine naturally through your urethra. The suprapubic catheter (SPC) placed into your pubic hair area allows you to pass urine until swelling subsides. The SPC prevents discomfort from bladder over distention. The SPC site may be cleaned with soap and water. The SPC tucks discreetly into your underpants. By following the simple routine below, you will be able to use the SPC to empty your bladder until your natural ability to pass urine gradually returns. You will find that as your ability to pass urine naturally improves, the need to use your SPC will be less. On average, a woman should expect to have the SPC from 2 to 4 weeks. Attempt to pass urine naturally as often as you like. At first, do not be surprised if you cannot pass urine in very small amounts. Try to void naturally immediately before each unplugging of the SPC. 3. During the day, unplug your SPC every 3 - 4 hours to ensure bladder emptying. So you can sleep well at night, connect your SPC to the night bag. Measure the residual amount drained out of the SPC at the end of each interval. Use the measuring hat. If your SPC amount is 400 cc or more, unplug more often (every 2 -3 hours). Start out with an unplugging interval of every 3 - 4 hours if possible. This is equivalent to unplugging 6 - 8 times per day. When the amount unplugged is less than 150 ml on 2 occasions, increase your unplugging interval to every 6 hours, or 4 times per day. When the amount unplugged is less than 150 ml on 2 occasions, increase your unplugging interval to every 8 hours, or 3 times per day. At the 8 hour interval, you no longer need to connect your SPC to the night bag. When the amount unplugged is less than 150 ml on 2 occasions, increase your unplugging interval to every 12 hours, or 2 times per day. When the amount unplugged is less than 150 ml on 2 occasions, increase your unplugging interval to every 24 hours, or 1 time per day. Once the amount unplugged at the 24 hour interval is less than 150 cc on 1 occasion, the SPC may then be removed. SPECIAL INSTRUCTIONS Call Dr. Blank's office at [phone] on a weekly basis to report on your progress or to arrange for removal of the SPC. Call Dr. Blank with the following problems: Symptoms of a urinary infection (pain, burning, urgency, frequency, or blood). Fever greater than 100.4 F on 2 occasions 4 hours apart. The inability to pass urine through the SPC. 12 HOW TO CARE FOR YOUR SUPRAPUBIC URINARY CATHETER About this Topic: A suprapubic urinary catheter is a bendable rubber tube. It is put into an opening called a stoma. This is made in the lower belly wall that goes straight into the bladder. A bulb at the end of the tube sits against the bladder wall and keeps the tube from moving out of place. Thecatheter is used to drain urine from the bladder when the bladder is not working the right way or is blocked. This type of catheter may have less chance of infection. General: The skin near the stoma should be cleaned every day and checked for signs of infection. These include redness, swelling, pus, and soreness. Cleaning the Skin Near the Stoma: You may take showers, but check with your doctor about bathing, hot tubs, and swimming pools. Avoid using creams, powders or sprays near the tube site. Get the Things You Will Need: Gloves * Warm water and non-scented soap Clean, dry washcloth and towel * Clean gauze bandage Surgical tape * Plastic Trash Bag Wash your hands with soap and water. Put on clean gloves Hold the skin on all sides of the stoma. Gently take off the bandage. Be careful not to pull out the catheter. Throw the bandage away in the trash bag. Check for redness or swelling, colored or foul-smelling urine or drainage, or skin changes. These may be signs of an infection. Call your doctor. Hold the end of the catheter tube while cleaning. Wash the base of the catheter and the skin near the stoma with warm soap and water. Wash away from the stoma, gently pat dry with a towel. Secure the catheter with a clean gauze bandage and tape. Changing the Catheter: Get the Things You Will Need: Drainage bag * Sterile gloves Syringe to remove water in the catheter balloon * Clean sterile gauze bandage Surgical tape * Plastic trash bag Wash your hands with soap and water before and after changing the catheter. Put on clean gloves. Take off the old bandage or dressing and throw in the trash bag. Clean the skin at the site. Remove and throw away your gloves. Open packages carefully before putting on sterile gloves so you do not infect yourself once gloved.Be careful not to contaminate the sterile items inside the packages, mainly the new catheter. It isvery helpful to have someone help you. Put on sterile gloves and take care to keep things sterile at all times when working with the new catheter. Fix the new catheter as you have been trained. Using the syringe, remove water from the old catheter bulb. Keep your fingers close to the site. Gently pull the catheter until it comes out. You can tell how far in the new catheter should go from the length of the catheter you took out. Clean the skin at the site again. 13 Make sure the drainage bag is attached to the new catheter. Gently put the new catheter in as far as the old one had been. Once urine begins to flow, inflate the bulb with about 8-10 mL water or the amount given on the package. If you have pain or feel resistance, withdraw the catheter a little and try again. If you cannot get the catheter in, cover the opening and call your caregiver right away. Secure the catheter with a new bandage. Tubing should be loose so it does not pull on the catheter. Throw away your gloves and any old catheter supplies. What Problems Could Happen? Infection * Bleeding Kidney damage * Bladder injury Bladder stones * Catheter gets displaced causing a leak or blockage When Do I Need to Call the Doctor? Signs of infection - these include a fever of 100.4F (38C) or higher, chills, stomach pain. Signs of wound infection - these include swelling, redness, warmth around the catheter site, too much pain when touched, yellowish/greenish or bloody discharge, foul smell coming from the site. Cloudy or foul smelling urine. Blood in urine. Stones or sediment in the tubing or drainage bag. Soreness near the tube. Very bad bladder pain or spasms. Urine leaking around the tube. No urine flowing into the bag; this could be a sign that the tube is clogged. Tubing comes out. Helpful Tips: To lower your chance if infection or other problems: Always wash your hands before and after you care for your catheter. Check your catheter often to be sure it is in the right position and secure to avoid leakage at thestoma. Keep the urine drain bag below the level of your bladder. Make sure to keep the tubing free of kinks so the urine flows freely. Avoid wearing tight-fitting clothing over the tubing that could block the flow of urine. Do not re-use single use drainage bags. Drink lots of liquids each day; avoid caffeine drinks and beer, wine, and mixed drinks (alcohol) which may bother the bladder. Eat lots of fiber each day to avoid hard stools. This will help to avoid a blockage and bladder pressure. 14 RECORD FOR VOIDED AND POSTVOID AMOUNTS Please record the time you void, the amount voided, and the amount left in your bladder after you empty it with your catheter. Date/Time Voided Amount Post Void Residual Amount Date/Time Voided Amount Post Void Residual Amount 15 [facility] HOME SUPPLY LIST Please contact your local pharmacy or medical supply store regarding supplies for the type of catheter you may have. Transurethral Galindo catheter 1 Night bag and 1 Day bag with leg strap Lubricating jelly Alcohol wipes Measuring had for toilet seat 5 50 mL syringes Self-Intermittent Catheterization Supplies: 100 #11-Macedonian female catheters (hydrophilic if possible) Lubricating jelly Alcohol wipes Measuring hat for toilet seat Hand-held mirror Suprapubic catheter kit 1 Roll Transpire tape 1 inch 10 yards 1. Box of 25 drain dressings, precut, 6 pi 4 x 4 1 package catheter plugs 1. 2000 mL urinary drainage bag 1 day bag with leg strap 1 60 mL syringe catheter tip 1 Quart vinegar You may obtain the above supplies from the Pharmacy Counter at their [address] [place] [address] [place] [address] [place] [address] [phone] You had elevated BP during your stay. Per Dr Blank's Resident you can restart your BP meds as prescribed by your primary care doctor. Ensure close follow up with PCP to ensure your pressure is under control. Monitor for signs of hypertensive emergency/urgency 16 5 [facility] The patient, (name), has been discharged from the hospital / surgery center on (date) from her operation. The patient has been given the appropriate postoperative instructions and they have been reviewed thoroughly with the patient and her family as necessary. The patient voices understanding and all questions have been answered to her and / or her family s satisfaction. Regarding her voiding ability at the time of discharge from the hospital: [ ] Patient was able to void on her own. (*RN to remove pages 7-16*) [ ] The patient was discharged with an indwelling Galindo catheter and will do clamping trials at home. She will need a voiding trial at the office in 1 week. (*RN to include pages 7-10,15,16 & remove pages 11-14*) [ ] The patient was discharged with an indwelling Galindo catheter and bladder rest. She will not undergo a voiding trial unless directed by Dr. Blank at the first post-operative visit. (*RN to include pages 7-10,15,16 & remove pages 11-14*) [ ] Patient was taught intermittent self-catheterization. (*RN to include pages 7,8,11,15,16 & remove pages 9,10,12-14*) [ ] The patient was discharged with a suprapubic catheter. (*RN to include pages 7-10,12-16 & remove page 11*) RN Signature Date Patient or Family Member Signature Date FAX COMPLETED FORM TO: Jus Blank DO FAX: [phone] documented in this encounterBON ENC[facility]ALEDigital[facility] Work Phone: [phone]) 517-967705-09-2022 History of Present illness Narrative* Cici Odell DO - 09/01/2021 9:07 AM EDT DIABETES PHYSICIAN Resident Interval Note H&H pending @ 1100 Patient can be discharged home once she is able to ambulate, tolerate water/crackers and have pain well controled with PO pain medications. Please perfect serve resident below with any questions regarding this patient. Cici Alvarenga DO DIABETES PHYSICIAN Resident [facility], [facility] 09/01/2021, 9:08 AM * Azeb Ascencio RN - 08/19/2021 3:56 PM EDT DAY OF SURGERY/PROCEDURE GUIDELINES As a patient at the [facility], you can expect quality medical and nursing care that is centered on your individual needs. It is our goal to make your surgical experience as comfortable and excellent as possible. The following instructions are general guidelines, if any information on this sheet is different from what your doctor has instructed you to do, please follow your doctor's instructions. Please arrive on 09/01 @ 600am Enter through entrance C. Check in at registration Upon arrival you will be taken to the pre-operative area to get ready for surgery, your family willstay in the waiting room and visit with you once you are ready for surgery. Due to special limitations please limit visitation to 1-2 members of your family at a time. When it is time for surgery your family will return to the waiting room. Nothing to eat, drink, smoke, suck or chew after midnight (no water, gum, mints, cigarettes, cigars, pipes, snuff, chewing tobacco, etc.) or your surgery may be canceled. Take a shower or bath on the morning of your surgery/procedure (Hibiclens if directed) [place] your teeth, but do not swallow any water IN CASE OF ILLNESS - If you have a cold or flu symptoms (high fever, runny nose, sore throat, cough, etc.) rash, nausea, vomiting, loose stools, and/or recent contact with someone who has a contagious disease (chick pox, measles, etc.) please call your doctor before coming to the surgery center Take a small sip of water with heart, blood pressure, and/or seizure medication the morning of surgery. If applicable bring your: Inhaler (s) Hearing aid(s) Eyeglasses and Case (If you wear contacts they have to be removed before surgery, bring case and solution) CPAP DO NOT take anticoagulants (blood thinners, aspirin or aspirin-containing products) as instructed by your physician. DO NOT take any diabetic pills or insulin morning of your surgery. Wear loose, comfortable clothing that is easy to put on and take off. They will remain in post-op with the nurse. If you will be returning home the same day as your surgery, you will need to have a responsible adult (18 years of age or older) present to drive you home. You will need someone stay with you at homefor the first 24 hours following your surgery. This is due to the anesthesia and the medication given to you during surgery and recovery. documented in this [facility] Work Phone: [phone]) 918-936005-03-2022 Hospital Discharge instructions* Instructions* Mayra Nunez RN - 08/26/2021 Images from the original note were not included. 5 [facility] The patient, __Jessica Lao has been discharged from the hospital / surgery center on ___09/01/21 from her operation. The patient has been given the appropriate postoperative instructions and theyhave been reviewed thoroughly with the patient and her family as necessary. The patient voices understanding and all questions have been answered to her and / or her family s satisfaction. Regarding her voiding ability at the time of discharge from the hospital: [ ] Patient was able to void on her own. (*RN to remove pages 7-16*) [ ] The patient was discharged with an indwelling Galindo catheter and will do clamping trials at home. She will need a voiding trial at the office in 1 week. (*RN to include pages 7-10,15,16 & remove pages 11-14*) [ ] The patient was discharged with an indwelling Galindo catheter and bladder rest. She will not undergo a voiding trial unless directed by Dr. Blank at the first post-operative visit. (*RN to include pages 7-10,15,16 & remove pages 11-14*) [x ] Patient was taught intermittent self-catheterization. (*RN to include pages 7,8,11,15,16 & remove pages 9,10,12-14*) [ ] The patient was discharged with a suprapubic catheter. (*RN to include pages 7-10,12-16 & remove page 11*) RN Signature Date Patient or Family Member Signature Date FAX COMPLETED FORM TO: Jus Blank DO FAX: [phone] POSTOPERATIVE PATIENT INSTRUCTIONS MAJOR & MINOR SURGICAL PROCEDURES Congratulations! You have taken the brave step of undergoing a surgery in order to try to improve your health. Now it is time to focus on healing outside of the hospital / surgery center setting. To make your dismissal as successful as possible, it is recommended that you thoroughly review these postoperative instructions. These instructions pertain to, but are not limited to the following procedures: MAJOR ; Hysterectomy Vaginal / Laparoscopic / Robotic ; With or Without tube-ovarian Removal (Salpingo-oophorectomy) ; Sacrocolpopexy / Sacroperineopexy / Sacrocervicopexy (Lifting the vagina / cervix to the sacrum) ; Major Vaginal Prolapse repairs ; Cystocele repair (Anterior Colporrhaphy) ; Rectocele repair (Posterior Colporrhaphy) ; Enterocele repair ; Vaginal vault repair ; Closing or removal of the vagina (Colpocleisis / Colpectomy) ; Major urinary incontinence surgery (Walker Urethropexy, MMK) ; Major fibroid removal (Myomectomy) ; Major tubal surgery (re-anastomosis, ectopic , pelvic inflammatory disease) ; Major surgery for adhesions or endometriosis involving bowel ; Major vaginal mesh removal ; Fistula repair of the bladder or colorectum to the vagina ; Creation of a new vagina (Neovaginoplasty) or repair of a Mullerian Anomaly ; Other MINOR ; Hysteroscopy with Dilatation / Curettage, Endometrial Ablation ; Laparoscopy With or Without minor tubal or ovarian surgery ; Minor Vaginal Prolapse repairs ; Cystocele repair (Anterior Colporrhaphy) ; Rectocele repair (Posterior Colporrhaphy) ; Urethrocele repair ; Minor urinary incontinence surgery (Slings, Transurethral Bulking) ; Minor vaginal surgery (Mesh removal, Laser ablation, Biopsies, Labial revisions, Injections) ; Minor surgery of the bladder (DMSO, Hydrodistention, Botox, etc.) ; Other 1 POST OPERATIVE BASIC INSTRUCTIONS The office will call on the Wednesday, or within 1 week, after your surgery to make sure you are doingwell and to answer questions. 1. Your 1st post-op visit will occur within 1-2 weeks after your surgery. 2. Your final post-op visit will occur @ 4-6 weeks depending on the surgery & your desire to return to work. 3. Your surgery and recovery may require more visits in between the 1st and final visits. DO S, DONT S, & WHEN TO CALL As reviewed with you on the morning of your discharge, for the 1st week out of surgery below is a QUICK list of DO s, DONT s, and WHEN TO CALL: 5 THINGS YOU MAY DO 5 THINGS YOU MAY NOT DO FOR 4-6 WEEKS -Shower with Ivory Soap and water -Tub bathe, hot tub, or swim -Gradually increase walking -Heavy lifting > 15lbs (2 gallons worth) -Go up and down stairs slowly -Insert anything into the vagina (sex, douching, tampons) -Drive a car / motorcycle (*See -Light housecleaning (dusting, dishwashing) Special Considerations) -Short local travel (restaurant, episcopalian) -Long distance travel > 1.5 hours (*See Special Considerations) 5 SYMPTOMS TO CALL FOR: -Sustained fever >100.4 despite Tylenol or a cold shower, especially associated with redness of incision/s -Pain out of the ordinary (>7) despite pain meds / anti-inflammatories -Heavy vaginal bleeding > 1 pad / hour with large red clots -Inability to eliminate urine (especially if catheterized) or flatus / stool (with sustained distention & nausea) -Calf pain or extreme shortness of breath QUESTIONS, CONCERNS, EMERGENCIES * Please call the office with any questions or concerns at [phone]. * If during office hours, your issue may require an appointment. If after hours, the answering service will connect you with the physician Director Information. * If you are concerned that your issue may be emergent, PLEASE CALL FIRST. ; Many issues may be resolved over the phone and avoid an unnecessary and expensive ER visit. ; If you truly have an emergency related to the surgery and call first: *You will be directed to the hospital ER in which you had your surgery. [facility] primarily or [facility] rarely. [facility] patients may be asked to report to [facility] if Dr. Blank s on-call partner is assuming responsibility. ; Calling first helps to expedite your care and avoids an unnecessary and expensive ambulance transfer to [facility]. Dial 911 or go to your closest ER if your emergency is related to a potential heart attack or stroke. 2 DISCHARGE MEDICINES * Columbus 325/5mg tablets or alternative narcotic. Take 1-2 tablets by mouth every 4-6 hours as needed for pain. - Per [facility] Board of Pharmacy laws, only 1 week of narcotics may be prescribed at a time. - Do not take extra Tylenol (Acetaminophen) orally as Columbus already contains the medicine. - May take 500mg orally every 4-6 hours if off of Columbus. * Ibuprofen 400-800mg is safe to take. Take 1 tablet by mouth every 8 hours for inflammation. * Senokot S. Take two tablets by mouth every night to prevent constipation. Stop if loose stools occur. * If an antibiotic is required: Keflex 250-500mg take 1 tablet by mouth 3x / day as prescribed OR Cipro 250-500mg take 1 tablet by mouth 2x / day as prescribed * Other medicines or antibiotics may be prescribed based on your postoperative course or situation. *You may resume taking any medications you were taking before your surgery, unless told otherwise. DUE TO BLEEDING RISK, DO NOT RESUME HOME ANTICOAGULANTS UNLESS DISCUSSED SPECIAL CONSIDERATIONS After surgery, give yourself a chance to adjust and recover. Some patients feel fine within a month. Many need a little extra time. Do not be concerned if you feel fatigued for the first month, your body is recovering. It may take several weeks for you to get your energy back. Even if energy has returned, please do not be tempted to re-engage in strenuous activity. Although mild weight gain is not uncommon, most of it is IV fluid weight that your body will remove with time. 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 Once you have fully recovered, you may focus on enjoying your life. Keep in mind, you will continue to heal for 6-12 months after surgery, so use common sense to protect your surgery (avoid repetitive heavy lifting, constipation, chronic pelvic strain.) In particular, if you had a hysterectomy, you may have both physical and emotional effects that maybe brief or longwall shearer operator. After hysterectomy, periods will stop and a woman can no longer achieve . Despite popular myth, post-hysterectomy weight gain is not due to the hysterectomy, but is usually a result of other factors. A depressive emotional reaction to loss of the uterus is not uncommon or abnormal. Please discuss any concerns with your health care provider if persistent. Sexual response may change after hysterectomy. There are no definitive studies showing decreased orgasmic potential post-hysterectomy. Some women have a heightened response due to correcting painful pathology. O varian removal may decrease estrogenization, leading to vaginal dryness and menopausal hot flashes.Hormonal therapy may need to be discussed. SOME SURGERIES HAVE SPECIAL CONSIDERATIONS MAJOR * For all major surgeries listed above, you may drive after your 1week post-op visit if cleared, have discontinued narcotic pain meds, and are able to depress the brake quickly without pain. Long distance travel may be resumed in 4 weeks if stable. * With major robotic hysterectomy, you should refrain from intercourse for 8 weeks, other hysterectomies 6 weeks. MINOR * Minor surgeries may drive next day any distance if off narcotic pain meds and are able to brake safely. * For minor vaginal surgeries for prolapse and / or urinary incontinence procedures, maintain pelvic rest for 4 weeks. Exercise and work may be resumed within 2-4 weeks depending on healing. * For minor surgeries of the vagina, uterus, and bladder, hysteroscopy, D&C, and laparoscopy, maintain pelvic rest for 1-2 weeks depending on healing. Exercise and work may be resumed within the week. 3 CONSENT ITEMS REVISITED IN THE POST OPERATIVE PERIOD 1. Physical and sexual activity will be restricted in varying degrees for an indeterminate period of time, but most often 2-8 weeks depending on the breadth of surgery. It is impossible to list everyundesirable effect and that the condition for which surgery is done is not always cured or significantly improved, and in rare cases may even worsen. 2. There is no 100% guarantee that the planned surgery, despite everything being done correctly andto the medico-surgical standard with resolve a condition 100% including but not limited to pain, urinary infections, bladder function, or defecatory dysfunction. Specifically, up to 20% of patients with abdominopelvic pain, 27% of those with UTI's, 16-26% with urinary incontinence or voiding dysfunction, and 40% with defecatory dysfunction may not see substantial long lasting improvement from a surgical intervention. 3. Dangerous blood clots in the legs or lungs may occur post-operatively. Patients on chronic bloodthinners, particularly those without antidote, may be at significant risk of bleeding, hemorrhage, hematoma formation, need for transfusion, and over the regular population. Life-threatening bleeding complications may even occur up to 4 weeks out of surgery even if anticoagulation is managed appropriately. If the patient has been taken off anticoagulation because of bleeding, this could expose her to life-threatening blood clots in the legs or lungs, MA, or stroke. 4. Elderly patients over the age of 70 may experience up to a 2% mortality rate in the postsurgicalperiod related to comorbidities and declining health. A living will and is recommended to be reviewed. 5. For major outpatient procedures requiring less than a 24 hour stay, you will be dismissed from the hospital or surgery setting when stable and meets criteria for discharge. Less than 5% of patients may rebound to an emergency setting for some of the risks mentioned above even though they have met criteria for dismissal earlier. Outpatient surgical recovery usually occurs between 2 and 4 weeks.For major inpatient procedures requiring an average 1-3 day hospital stay, and the patient may not be fully recovered from major surgery for up to 6-8 weeks. Please understand with Medicare and insurance reform, only 1 night will be approved for most reconstructive or robotic procedures. In regards to reconstructive pelvic and incontinence surgery: 1. Approximately 85% of patients experience a reasonable improvement >5 years in pelvic support and urinary/fecal incontinence, as well as urinary infections, after the procedure. There is a long-term risk of recurrent prolapse in up to 30% of women who have undergone reconstructive surgery if healthy lifestyle behaviors are not maintained. This includes but is not limited to smoking cessation, weight loss in the obese, reduction in heavy lifting, exercise, fall prevention, and bowel regularity. Reconstructive pelvic and/or urinary/fecal incontinence surgeries may only improve your condition/s mildly and may not completely resolve problems including but not limited to urinary tract infect ions and/or defecatory dysfunction. 17% of patients may still get a urinary tract infection and 40-60% of patients may still experience constipation postoperatively. 2. It may be hard to urinate for a few days or weeks. Sometimes, up to 40% of women cannot urinate efficiently after surgery due to swelling, anesthesia, or pain. Prolonged urinary retention may rarely occur after an incontinence or pelvic prolapse surgery and is more likely if retention predates surgery or includes factors that are not limited to neuropathy, diabetes mellitus, or prior pelvic surgery. The patient may need a catheter to drain the bladder for 1-2 weeks on average. Patients in Dr. Blank's practice most often prefer a transurethral Galindo. Other choices are a suprapubic catheter or intermittent self-catheterization. The patient has been given instructions on how to manage the type of catheter chosen, which will be reiterated postoperatively. Despite evidence indicating no need for antibiotics with a catheter, real world experience shows a 20-40% rate of UTI with a Galindo catheter which depending on personal risk factors and extent of surgery, may require a prophylactic anti biotic afterwards. Antibiotics have risks of resistance, diarrhea and C. difficile infection. Suprapubic catheters carry a risk of urinoma, bowel injury, and bleeding and have a UTI risk of 15-20%. Intermittent self-catheterization carries an 11% risk of a UTI. In regards to labial or perineal reconstructive surgery: 1. You should expect some bruising and mild swelling with related discomfort following these surgeries that lasts 1-2 weeks. Ice packs and sitz baths may be utilized after surgery to help minimize swelling and discomfort. Mild analgesics are also used. Final optimal results can usually be appreciated in several months. Most patients may return to work or school within a week after surgery; however, strenuous activity or tight clothing is discouraged and patients must refrain from sexual intercourse for 4-6 weeks after surgery. 2. You may receive a topical antibiotic, which reduces risk of infection. Mild bleeding is not uncommon and can occur postoperatively if strenuous activity or intercourse is begun too early. Problemswith healing, such as incision separation, suture popping, scarring, and/or pain following the surgery are rare but can happen. 4 SPECIAL INSTRUCTIONS IF MRSA POSITIVE * Continue Bactroban to the nares 2x / day for 2 weeks post-operatively. Since many people are colonized in the community, it is not something we will routinely culture for post-operatively. TO PREVENT BLOOD CLOTS IN THE LEGS OR LUNGS / PNEUMONIA IN THE LUNGS * Regular walking or calf stretches and wearing a supportive hose may help prevent clots in the legs or lungs. * If interested, home pneumatic cuffs are available for purchase through the office if you wish to continue these at home. * Take home your incentive spirometer and utilize it as instructed to prevent pneumonia. * Smoking cessation before and after surgery is strongly encouraged. VAGINAL BLEEDING & DISCHARGE * You will likely experience light bleeding with the potential for small dime size clots, lasting 2-3 weeks after your surgery. This should not be construed as heavy bleeding. * You may notice an increase in vaginal discharge 4-6 weeks after your surgery, which may be watery, yellowish, or pinkish. It may have more of an acidic odor. This is common as the vagina flushes out edematous body fluid and dissolves the absorbable sutures. * As the healing process progresses, you may experience mild itching within the vagina, as well as outside the vaginal opening. If this itching become severe, and/or is accompanied by a foul smell and swelling, please call the office. DRAINS & WOUND CARE * If a drain or specific wound care appliance is present at the time of dismissal, please follow additional instructions that may be provided regarding maintenance of the device/s. * Basic daily maintenance of a drain is as follows: - You may wash around the drain site with warm, soapy water and pat dry with a towel. - If indicated, use a topical antibiotic around the drain site 2x / day. - Strip or milk the drain from the drain site to the bulb suction 3x / day. This clears any blockage from the drain. Simply pinch the drain at its insertion site into your body between your thumb and forefinger. Thensqueeze and pull the drainage tubing as you move towards the drain bulb, allowing the tube to slidebetween your fingers with mild resistance, you should see a suction effect within the drain tube that moves fluid toward the bulb. * Please call the office immediately if the drain falls out or cannot maintain suction. * Please call if redness of the drain site increases and is associated with fever, pain, or purulent discharge. CONSTIPATION * Patients are often constipated after a prolonged period of bed rest, or with the use of oral narcotic pain medications. If you have not had a bowel movement for 3 days after you are dismissed from the hospital, or are uncomfortable and unable to pass stool, please try one or all of the following measures in a stepwise manner: 1. Eat fruits, vegetables, prunes & whole-grain foods. Drink 8 glasses of fluid daily. Add PlumSmart juice. 2. Metamucil, FiberCon, or other bulking medication - use as directed 3. Milk of magnesia - 30 mL s by mouth every 12 hours 4. Dulcolax suppository - 1 suppository per rectum every 4-6 hours 5. Fleets enema use as directed unless told nothing per rectum (colorectal fistula repair) BLADDER DRAINAGE There is a >70% chance you will void on your own post-operatively. In particular to reconstructive and incontinence surgeries (whether you had incontinence before surgery or not), sometimes surgical effects of normal swelling and new positioning of the bladder may be associated with some mild tomoderate postoperative urinary leakage. Often this leakage is urge related. As discussed pre-operatively, up to 26% of patients with prolapse and negative urodynamic testing may develop de nevaeh incontinence afterwards. Please do not be frustrated if temporary incontinence occurs for it will most likely improve as you continue to heal. Leakage rarely persists long-term, there are many options for t reatment, and Dr. Blank and his office staff are there to help you every step of the way. 5 [facility] The patient, (name), has been discharged from the hospital / surgery center on (date) from her operation. The patient has been given the appropriate postoperative instructions and they have been reviewed thoroughly with the patient and her family as necessary. The patient voices understanding and all questions have been answered to her and / or her family s satisfaction. Regarding her voiding ability at the time of discharge from the hospital: [ ] Patient was able to void on her own. (*RN to remove pages 7-16*) [ ] The patient was discharged with an indwelling Galindo catheter and will do clamping trials at home. She will need a voiding trial at the office in 1 week. (*RN to include pages 7-10,15,16 & remove pages 11-14*) [ ] The patient was discharged with an indwelling Galindo catheter and bladder rest. She will not undergo a voiding trial unless directed by Dr. Blank at the first post-operative visit. (*RN to include pages 7-10,15,16 & remove pages 11-14*) [ ] Patient was taught intermittent self-catheterization. (*RN to include pages 7,8,11,15,16 & remove pages 9,10,12-14*) [ ] The patient was discharged with a suprapubic catheter. (*RN to include pages 7-10,12-16 & remove page 11*) RN Signature Date Patient or Family Member Signature Date FAX COMPLETED FORM TO: Jus Blank DO FAX: [phone] (Patient Sticker Here) 6 BLADDER DRAINAGE FOR THOSE PATIENTS REQUIRING A CATHETER Conversely, it may be hard for you to urinate for a few days or weeks. Sometimes, up to 30-40% of women cannot urinate efficiently after surgery due to swelling or anesthesia. This may last a few hours to a few weeks. You may be required to use a catheter in your bladder to help it drain and retrain it to work properly. One kind of catheter, called a Transurethral Galindo Catheter, may be placed into the bladder through the urethra. This is usually reserved for large pelvic reconstructive surgeries and timely recovery. Some patients prefer to use a catheter intermittently to empty their bladder. This is called Intermittent Self-Catheterization (ISC). It is an easy technique to learn and helps to lessen the threat of urine infection. A third kind of catheter is called a Suprapubic Catheter (SPC). This catheter is placed through a small incision in the abdomen. A SPC is good for elderly patients or those whoare obese and may not be able to insert a catheter, or for complex bladder surgery requiring delayed recovery. Other tubes may help drain fluid from your incision/s. Unless instructed to maintain a catheter to drainage or to rest, you will begin plugging the end ofyour catheter with a small plastic plug in the hospital, and you will leave it plugged for set intervals of time. You will continue this upon dismissal. While your catheter is plugged, the urine willnot drain out of it, and your bladder will fill like it always has naturally. You will be sent home with a smaller day bag that straps to your leg for mobility plus a larger night bag to allow you torest all night without the need to drain the bag, and cleansing supplies. * If you have a Transurethral Galindo Catheter, plugging of the catheter helps to wake up the bladderand increases capacity. By the time you come in for your 1st postoperative visit, 95% of patients will be ready to pass a voiding trial and have the catheter removed successfully. During daytime, tryplugging until you are comfortably full, then drain your bladder through the catheter. Your goal should be 2-4 hours of plugging between bladder emptying. You may put your catheter to drainage at night. * If you are performing Intermittent Self-Catheterization, you should attempt to urinate every houror so and then catheterize at the end of the time interval to measure how much urine is left in thebladder by emptying the catheter into the measuring hat. * If you have a Suprapubic Catheter, during the time that your catheter is plugged, you should attempt to urinate naturally every hour or so. At the end of the time interval, measure how much urine is left in the bladder by emptying the catheter into the measuring hat. 7 You will not begin progressing through the different intervals of the suprapubic plugging or catheterization routine until you are able to urinate normally through your urethra. Until this happens, you will repeat the 4 hour interval over and over. When you have started urinating normally, you willmeasure how much is left in your bladder at the end of each interval and make a decision about whether you may progress to the next time interval. Please see the respective catheterization routine pertinent to the type of catheter that you may have. Until the 12 hour interval is reached, the catheter should be hooked to the drainage bag every night to drain. After the 1st successful 24-hour interval, please call the office to update one of the nurses. Troubleshooting the Catheter It is not uncommon for the transurethral or suprapubic catheter to leak around the urethra or skin incision respectively as the bladder gets too full. If you have problems with this type of leaking, drain your bladder through the catheter. If leakage continues, reconnect your catheter to the Galindo bag until the next morning, then restart the plugging routine. Please call the office with continuedleakage problems. Removing the Catheter The catheter is held in place inside your bladder by a water-filled balloon. Cutting the collar (next to the end of the part you ve been plugging) will cause the water inside the balloon to empty out, and the balloon will deflate. You may then remove the catheter by pulling on it gently. Things to Remember * You do not need to measure how much you urinate, ever. You need only to measure how much is left in your bladder (which gets drained from the catheter) at the end of each plugging interval. This isknown as the residual urine. You do not have to measure this residual every time you urinate normally; only at the end of the plugging interval. * You may find it easier to use the Galindo bag at night to collect your urine. Doing this prevents you from having to get up in the night to drain your bladder. If you use the Galindo bag, simply restart your most recent plugging interval when you wake up (for example, if you were at the 6 hour interval before bed, start at this interval routine in the morning.) * The site where a catheter is inserted into the urethra or abdomen may become pinkish, purplish, or develop a pus-like or crusty substance around it. These are your body s reactions to the catheter s presence, and are very normal. You may wash around the catheter daily with soap and water. Rinse and dry these areas well. You may shower while wearing the catheter. Maintain good personal hygiene. If this site develops a redness that spreads, or is warm and painful to the touch, please call the office immediately. * When changing from one bag to another, using a clean leg bag or Galindo bag and an alcohol prep. Wash your hands thoroughly with soap and water and swab the end of the drainage tubing that will be attached to the Galindo catheter. Disconnect the drainage bag from the Galindo catheter and put the bag aside. Attach a clean bag to the catheter. Wash your hands thoroughly afterwards. * To clean the bags simply empty the urine from the bag and leave the spout open for cleaning. Mix a cup of vinegar and cup of cool water and flush the bag using a 50 mL syringe, or by submerging thebag under the mixture. Once the bag is filled, close the spout and allow the liquid to stay in the bag for 30 minutes. Drain the cleaning solution and rinse the bag again with tap water. Hang dry with the cap off and the spout open. A commercially prepared urinary appliance industrial cleaner may also be usedas instructed. * It is important that when it is time to remove the catheter, do so in the morning, because you will need to urinate every 30-60 minutes on the day that you remove it. This is to keep the bladder empty and compressed, and to allow itself to heal. This is especially important for the suprapubic incision for those with suprapubic catheters. After removing the suprapubic catheter in particular, cover the site with a Band-Aid for the 1st 24-48 hours. * Drink at least 2 quarts of liquid a day. Avoid caffeinated drinks as they may irritate the bladder and cause bladder spasms. * Please remember to call the office once a week until the catheter is removed with an update on your progress. 8 HOW TO CARE FOR YOUR GALINDO CATHETER FEMALE About this Topic: Galindo catheter is a thin, flexible tube that drains urine from your bladder. The catheter connects to a special bag. The bag holds the urine until you are able to empty the bag. Youmay need to have a catheter for a short time. You may need a catheter after you are sick or have had surgery. Sometimes a catheter is used for a long time. What Will the Results Be: Your urine will drain and you will prevent infection. What Care is Needed at Home? ; Ask your doctor what you need to do when you go home. Make sure you ask questions if you do not understand what the doctor says. This way you will know what you need to do. ; Your doctor may order a home health nurse to come to your house to help you learn to care for your catheter. ; Prevent infections: ; Wash your hands before and after handling your catheter. ; If you switch between a leg bag and an overnight drainage bag, be sure you clean the connection between the catheter and the bag before you switch bags. Ask your doctor what to use to clean the connection. ; Place a cap on the drainage bag you are not using and store in a clean towel. ; Rinse the empty drainage bag not in use with 1 cup vinegar mixed with 1 cup water. ; Care for the tube: ; Wash the skin around the catheter with soap and water each day. Pat the skin dry. ; Do not put anything on the tube. ; Keep the tube secure. Do not let the tube pull or catch when you are moving around during the day. ; Do not let the tube kink or loop. ; Care for the Drainage Bag: ; Keep your urine bag below your bladder. ; Drain the bag often to help keep you from getting an infection. ; Wear cotton underwear. ; What Follow-Up Care Is Needed? Your doctor may ask you to make visits to the office to check on your progress. Be sure to keep these visits. ; ; ; ; 9 ; What Lifestyle Changes are Needed? ; Drink 6-8 glasses of water every day. ; Take showers rather than soaking in a bath. ; Will Physical Activity Be Limited? ; Talk to your doctor about what you can and cannot do when the catheter is in place. ; What Problems Could Happen? ; The catheter has a balloon to hold it inside the bladder. The balloon can break or leak and the catheter can fall out. ; Urine flow stops or is blocked by kinks or bends in the tube or if the drain bag is kept higher than your bladder. ; You may see blood in the collecting tube or bag. ; Bladder infection. ; When Do I Need To Call the Doctor? ; Signs of infection like a fever of 100.4F (38C) or higher, chills, pain around the catheter, redness or swelling of the skin around the catheter. ; Urine has blood and it is dark or coffee colored, or is pus-like. ; Tube comes out or urine stops flowing. ; Burning or painful feeling in your bladder. ; You are not feeling better in 2-3 days or you are feeling worse. ; Teach Back: Helping You Understand ; The Teach Back Method helps you understand the information we are giving you. The idea is simple.After talking with the staff, tell them in your own words what you were just told. This helps to make sure the staff has covered each thing clearly. It also helps to explain things that may have sulema bit confusing. Before going home, make sure you are able to do these: ; I can tell you about my condition. ; I can tell you how to prevent infection and care for the tube and bag of my Galindo catheter. ; I can tell you what I will do if my urine stops flowing or there is a burning or painful feeling in my bladder. 10 Intermittent Self-Catheterization (ISC) Instructions After your operation, you may experience swelling around the bladder and urethra. Swelling may limit the ability to pass urine naturally through your urethra. Intermittent Self-Catheterization (ISC) will allow you to pass your urine until this swelling subsides. This technique prevents discomfort from bladder over distention. By following the simple routine below, you will be able to use ISC to empty your bladder until yournatural ability to pass urine gradually returns. You will find that as your ability to pass urine naturally improves, the need for ISC will be less. On average, a woman should expect to have use ISC from 2 to 4 weeks. You may reuse catheters by cleaning them in hot soapy water if low on supplies. 1. Attempt to pass urine naturally as often as you like. At first, do not be surprised if you cannot pass urine in very small amounts. 2. Try to void naturally immediately before each self-catheterization. 3. During the day, self-catheterize every 3 - 4 hours to ensure bladder emptying. Use your non-dominant hand to gently spread your labia and wipe your urethra with a soap wipe. Use your dominant hand to introduce the catheter into the urethra until urine flow starts and then stops. 4. Measure the residual urine drained out of the catheter at the end of each interval. Use the measuring hat. If your catheterized amount is 400 ml or more, self- catheterize more often (every 2 -3 hours). 5. Start out with a self-catheterization schedule of every 3 - 4 hours if possible. This is equivalent to self-catheterizing 6 - 8 times per day. 6. When the amount catheterized is less than 150 ml on 2 occasions, increase your catheterization interval to every 6 hours, or 4 times per day. 7. When the amount catheterized is less than 150 ml on 2 occasions, increase your catheterization interval to every 8 hours, or 3 times per day. 8. When the amount catheterized is less than 150 ml on 2 occasions, increase your catheterization interval to every 12 hours, or 2 times per day. 9. When the amount catheterized is less than 150 ml on 2 occasions, increase your catheterization interval to every 24 hours, or 1 time per day. 10. Once the amount catheterized at the 24 hour interval is less than 150 ml on 1 occasion, self-catheterization may be stopped. SPECIAL INSTRUCTIONS * Call Dr. Blank's office at [phone] on a weekly basis to report to Briana on your progress. * Call Dr. Blank with the following problems: 1. Symptoms of a urinary infection (pain, burning, urgency, frequency, or blood). 2. Fever greater than 100.4 F on 2 occasions 4 hours apart. 3. The inability to pass urine through the catheter. 11 Suprapubic Catheter Instructions After your operation, you may experience swelling around the bladder and urethra. Swelling may limit your ability to pass urine naturally through your urethra. The suprapubic catheter (SPC) placed into your pubic hair area allows you to pass urine until swelling subsides. The SPC prevents discomfort from bladder over distention. The SPC site may be cleaned with soap and water. The SPC tucks discreetly into your underpants. By following the simple routine below, you will be able to use the SPC to empty your bladder until your natural ability to pass urine gradually returns. You will find that as your ability to pass urine naturally improves, the need to use your SPC will be less. On average, a woman should expect to have the SPC from 2 to 4 weeks. 1. Attempt to pass urine naturally as often as you like. At first, do not be surprised if you cannot pass urine in very small amounts. 2. Try to void naturally immediately before each unplugging of the SPC. 3. During the day, unplug your SPC every 3 - 4 hours to ensure bladder emptying. So you can sleep well at night, connect your SPC to the night bag. 4. Measure the residual amount drained out of the SPC at the end of each interval. Use the measuring hat. If your SPC amount is 400 cc or more, unplug more often (every 2 -3 hours). 5. Start out with an unplugging interval of every 3 - 4 hours if possible. This is equivalent to unplugging 6 - 8 times per day. 6. When the amount unplugged is less than 150 ml on 2 occasions, increase your unplugging interval to every 6 hours, or 4 times per day. 7. When the amount unplugged is less than 150 ml on 2 occasions, increase your unplugging interval to every 8 hours, or 3 times per day. At the 8 hour interval, you no longer need to connect your SPC to the night bag. 8. When the amount unplugged is less than 150 ml on 2 occasions, increase your unplugging interval to every 12 hours, or 2 times per day. 9. When the amount unplugged is less than 150 ml on 2 occasions, increase your unplugging interval to every 24 hours, or 1 time per day. 10. Once the amount unplugged at the 24 hour interval is less than 150 cc on 1 occasion, the SPC may then be removed. SPECIAL INSTRUCTIONS * Call Dr. Blank's office at [phone] on a weekly basis to report on your progress or to arrange for removal of the SPC. * Call Dr. Blank with the following problems: 1. Symptoms of a urinary infection (pain, burning, urgency, frequency, or blood). 2. Fever greater than 100.4 F on 2 occasions 4 hours apart. 3. The inability to pass urine through the SPC. 12 HOW TO CARE FOR YOUR SUPRAPUBIC URINARY CATHETER About this Topic: A suprapubic urinary catheter is a bendable rubber tube. It is put into an opening called a stoma. This is made in the lower belly wall that goes straight into the bladder. A bulb at the end of the tube sits against the bladder wall and keeps the tube from moving out of place. Thecatheter is used to drain urine from the bladder when the bladder is not working the right way or is blocked. This type of catheter may have less chance of infection. General: The skin near the stoma should be cleaned every day and checked for signs of infection. These include redness, swelling, pus, and soreness. Cleaning the Skin Near the Stoma: You may take showers, but check with your doctor about bathing, hot tubs, and swimming pools. Avoid using creams, powders or sprays near the tube site. ; Get the Things You Will Need: ; Gloves * Warm water and non-scented soap ; Clean, dry washcloth and towel * Clean gauze bandage ; Surgical tape * Plastic Trash Bag ; Wash your hands with soap and water. ; Put on clean gloves ; Hold the skin on all sides of the stoma. Gently take off the bandage. Be careful not to pull out the catheter. Throw the bandage away in the trash bag. ; Check for redness or swelling, colored or foul-smelling urine or drainage, or skin changes. Thesemay be signs of an infection. Call your doctor. ; Hold the end of the catheter tube while cleaning. ; Wash the base of the catheter and the skin near the stoma with warm soap and water. Wash away from the stoma, gently pat dry with a towel. ; Secure the catheter with a clean gauze bandage and tape. Changing the Catheter: ; Get the Things You Will Need: ; Drainage bag * Sterile gloves ; Syringe to remove water in the catheter balloon * Clean sterile gauze bandage ; Surgical tape * Plastic trash bag ; Wash your hands with soap and water before and after changing the catheter. ; Put on clean gloves. ; Take off the old bandage or dressing and throw in the trash bag. ; Clean the skin at the site. ; Remove and throw away your gloves. ; Open packages carefully before putting on sterile gloves so you do not infect yourself once gloved. Be careful not to contaminate the sterile items inside the packages, mainly the new catheter. It is very helpful to have someone help you. ; Put on sterile gloves and take care to keep things sterile at all times when working with the newcatheter. ; Fix the new catheter as you have been trained. ; Using the syringe, remove water from the old catheter bulb. ; Keep your fingers close to the site. Gently pull the catheter until it comes out. You can tell how far in the new catheter should go from the length of the catheter you took out. ; Clean the skin at the site again. 13 ; Make sure the drainage bag is attached to the new catheter. ; Gently put the new catheter in as far as the old one had been. ; Once urine begins to flow, inflate the bulb with about 8-10 mL water or the amount given on the package. If you have pain or feel resistance, withdraw the catheter a little and try again. If you cannot get the catheter in, cover the opening and call your caregiver right away. ; Secure the catheter with a new bandage. Tubing should be loose so it does not pull on the catheter. ; Throw away your gloves and any old catheter supplies. What Problems Could Happen? ; Infection * Bleeding ; Kidney damage * Bladder injury ; Bladder stones * Catheter gets displaced causing a leak or blockage When Do I Need to Call the Doctor? ; Signs of infection these include a fever of 100.4F (38C) or higher, chills, stomach pain. ; Signs of wound infection these include swelling, redness, warmth around the catheter site, too much pain when touched, yellowish/greenish or bloody discharge, foul smell coming from the site. ; Cloudy or foul smelling urine. ; Blood in urine. ; Stones or sediment in the tubing or drainage bag. ; Soreness near the tube. ; Very bad bladder pain or spasms. ; Urine leaking around the tube. ; No urine flowing into the bag; this could be a sign that the tube is clogged. ; Tubing comes out. Helpful Tips: ; To lower your chance if infection or other problems: ; Always wash your hands before and after you care for your catheter. ; Check your catheter often to be sure it is in the right position and secure to avoid leakage at the stoma. ; Keep the urine drain bag below the level of your bladder. ; Make sure to keep the tubing free of kinks so the urine flows freely. ; Avoid wearing tight-fitting clothing over the tubing that could block the flow of urine. ; Do not re-use single use drainage bags. ; Drink lots of liquids each day; avoid caffeine drinks and beer, wine, and mixed drinks (alcohol) which may bother the bladder. ; Eat lots of fiber each day to avoid hard stools. This will help to avoid a blockage and bladder pressure. 14 RECORD FOR VOIDED AND POSTVOID AMOUNTS Please record the time you void, the amount voided, and the amount left in your bladder after you empty it with your catheter. Date/Time Voided Amount Post Void Residual Amount Date/Time Voided Amount Post Void Residual Amount 15 [facility] SUPPLY LIST Please contact your local pharmacy or medical supply store regarding supplies for the type of catheter you may have. Transurethral Galindo catheter 1 Night bag and 1 Day bag with leg strap Lubricating jelly Alcohol wipes Measuring had for toilet seat 5 50 mL syringes Self-Intermittent Catheterization Supplies: 100 #11-Macedonian female catheters (hydrophilic if possible) Lubricating jelly Alcohol wipes Measuring hat for toilet seat Hand-held mirror Suprapubic catheter kit 1 Roll Transpire tape 1 inch 10 yards 1. Box of 25 drain dressings, precut, 6 pi 4 x 4 1 package catheter plugs 1. 2000 mL urinary drainage bag 1 day bag with leg strap 1 60 mL syringe catheter tip 1 Quart vinegar You may obtain the above supplies from the Pharmacy Counter at their [address] [place] [id number] [place] [address] [place] [address] Store hours: Wednesday through Wednesday 9 AM to 6 PM Wednesday 9 AM to 1 PM Wednesday closed 16 documented in this encounterBluff[facility] HospitalMedia Con[facility] Group Phone: [phone] 835-551203-29-2022 Miscellaneous Notes* Letter - Mammography Coordinator - 07/22/2021 11:32 AM EDT July 22, 2021 PID: [id number] Jessica ANevin Lao [address] [place] [address] Dear Ms. Lao, We are pleased to inform you that the results of your recent breast imaging exam on 07/22/2021 are normal. Early detection of cancer is very important. We also understand recommendations regarding breast cancer screening are controversial. Please discuss with your primary care provider which strategy is best for you and whether a mammogram is right for you. Your imaging studies and report will be kept on file at as part of your permanent medical record and are available for your continuing care. Thank you for allowing us to help in meeting your health care needs. Sincerely, Dr. Keating Interpreting Radiologist [facility] (Normal over 40) documented in this encounter03-29-2022 History of Present illness Narrative* Damián Alexander APRN.SCARLETT - 07/22/2021 10:53 AM EDT MEDICAL BREAST PATIENT NAME: Jessica Lao REASON FOR VISIT: Annual Exam and Mammogram HISTORY of PRESENT ILLNESS: Jessica Lao is a 80 year old year old postmenopausal Retired female with history of Right breast cancer diagnosed in 1970 [facility] to [facility] today her sister (Briana) for annual exam and mammogram. She is an established patient of Fredio who I last saw on 07/16/20 for annual exam and mammogram with negative findings She is preparing for hysterectomy/bladder surgery and knee replacement surgery at end of year She denies any breast masses, pain, skin changes or nipple discharge. She denies any new family medical problems. In 1970, she was diagnosed with right breast cancer. She underwent mastectomy. She didn't require any chemotherapy, XRT or endocrine therapy History pertaining to prior breast biopsies, genetic reports, pathology reports, treatment summaries, personal, social and family history has been extracted from my note dated 07/16/20. Her vitamin D level was No results found for: VITD25. She takes mvi. BMD: Yes, per patient report in 2018; results: Osteoporosis PERSONAL BREAST HISTORY: Past breast history (prior to this encounter) is as follows: Breast biopsy: Yes, 1970 Breast cysts: No Breast surgery: Yes, Right mastectomy and left excisional biopsy-benign Breast cancer: Yes, treated as above CANCER SURVEILLANCE: Mammograms: Yes, 07/16/20 results-Negative Breast MRI: No Colonoscopy: Yes, per patient report in 2017, showing diverticulitis RISK FACTORS FOR BREAST CANCER: Age at the onset of menses: 12 years of age. P: 2 Age at the of first child: 19 years of age. She breast fed. Age at menopause: 45 years of age. Post-menopausal hormone therapy: Yes, currently using estrace cream She has an intact uterus and ovaries She is postmenopausal and does not use control. History of Mantle Radiation prior to the age of 30: No Obesity: Yes, Current Weight: 220 lbs Mammographic density: There are scattered fibroglandular densities Personal History of Benign Atypical Breast Biopsy: No Alcohol use: Rare PAST MEDICAL HISTORY: PAST MEDICAL HISTORY Diagnosis Date Diabetes (HCC) Hyperlipidemia Hypertension Hypothyroidism Osteoporosis Patient specifically denies history of: DVT, PE, migraine headaches WITH AURA, migraine headaches without aura, abnormal uterine bleeding, abnormal uterine biopsies, osteopenia and +osteoporosis. PAST SURGICAL HISTORY: PAST SURGICAL HISTORY Procedure Laterality Date BREAST BIOPSY HX Left MASTECTOMY HX Right 1971 REMOVAL GALLBLADDER TONSILLECTOMY HX SOCIAL HISTORY: Social History Tobacco Use Smoking status: Former Smoker Quit date: 04/1970 Years since quittin.2 Smokeless tobacco: Never Used Substance Use Topics Alcohol use: No Comment: very rare Drug use: No Caffeine intake: 2 cups / day Exercise: Never FAMILY HISTORY: Reviewed: 07/22/21 Family history of breast cancer: Sister ( Briana) dx 61-alive and well Family history of ovarian cancer: Mother dx 96- Number of sisters: 1 Number of maternal aunts: 3 Number of paternal aunts: 0 Ashkenazi Ancestry: no Has Patient had Genetic Testing? No Other Cancer: Aunt (Gaurang) dx cervical cancer-alive and well; Aunt (Emilee) dx uterine cancer decased - There is no family history of prostate, colon, pancreatic, gastric, brain, renal cell or thyroid cancer. - There is no family history of melanoma, sarcoma or leukemia. Osteoporosis: Sister dx 72 Stroke: None Blood Clot: None Heart attack: None Thyroid Nodule or Goiter: None Autism: None FAMILY HISTORY Problem Relation Age of Onset Ovarian cancer Mother 96 Breast Cancer Sister 61 Osteoporosis Sister 72 Cervical Cancer Maternal Aunt Uterine Cancer Maternal Aunt MEDICATIONS: fluticasone-salmeterol (ADVAIR DISKUS) 100-50 mcg/dose dsdv Inhale 1 Puff as instructed twice daily. ARMOUR THYROID 60 mg tab Take 60 mg by mouth. aspirin, enteric coated (ASPIRIN, ENTERIC COATED) 81 mg EC tablet Take 81 mg by mouth once daily. cranberry fruit extract (CRANBERRY EXTRACT ORAL) Take 600 mg by mouth. dicyclomine (BENTYL) 10 mg capsule Take 10 mg by mouth before meals and at bedtime. lisinopril (ZESTRIL, PRINIVIL) 20 mg tablet Take 20 mg by mouth once daily. multivit,thx,calcium,iron,mins (MULTIVITAMIN AND MINERAL ORAL) Take by mouth. esomeprazole (NEXIUM 24HR) 20 mg capsule Take 20 mg by mouth DAILY (6 AM). Potassium 99 mg tab Take by mouth. conjugated estrogens (PREMARIN) vaginal cream Use vaginally once each week. montelukast (SINGULAIR) 10 mg tablet Take 10 mg by mouth daily at bedtime. triamterene-hydrochlorothiazide (MAXZIDE) 75-50 mg per tablet Take 1 tablet by mouth once daily. metFORMIN ER (GLUMETZA) 500 mg 24 hr tablet Take 500 mg by mouth daily with breakfast. ALLERGIES: ALLERGIES Allergen Reactions Penicillins Mental Status Change, Other: See Comments She felt like she was going to pass out REVIEW OF SYSTEMS: She denies chest pain, shortness of breath, persistent cough, severe headaches, unusual bony pains,abdominal pain or unintentional weight loss. PHYSICAL EXAM: There were no vitals taken for this visit. General: well-nourished, healthy, white, female, alert and oriented x 3, calm Skin: warm, dry, skin color, texture, turgor normal Head/Eyes: normocephalic, atraumatic and anicteric Lymph nodes- The supraclavicular, axillary, and cervical regions are free of significant lymphadenopathy. Right breast-S/p mastectomy with well healed chest wall incision. No evidence of local recurrence. Increased excess tissue noted Left breast- The skin, nipple, and areola appear normal. There is no skin dimpling with movement ofthe pectoralis. There is no nipple retraction. No discharge can be elicited. The parenchyma is moderately fibrocystic. There is no dominant masses in the breast. The axillary tail is normal. There isno tenderness noted with palpation. Chest: cl Cor: reg, no r/m/g Abd: soft, no hepatomegaly IMAGING: Bilateral Screening Mammogram was [facility] in [facility] an was negative for malignancy. The tissue of both breasts is predominantly fatty. There are benign post operative findings in the right breast. Assessment IMPRESSION/PLAN: Jessica Lao is a 80 year old year old female with History of Right Breast Cancer, IncreasedRisk for Breast Cancer due to FH and Excess weight There is no evidence of malignancy. The clinical and mammographic breast findings were discussed indetail. Breast MRI is NOT ROUTINELY recommended for screening following a cancer diagnosis and is NOT recommended for women who have undergone bilateral mastectomy procedures unless otherwise clinically indicated. MRI is recommended for breast cancer survivors with remaining breast tissue who: - Have a history of chest irradiation under the age of 30. - Carry germline mutations conferring increased cancer risk (BRCA1, BRCA2, PTEN, TP53, CDH1, STK11,PALB2, CHEK2, ELISABETH) Per [facility] High Risk Care Path recommendations, screening breast MRI may be considered for women underthe age of 65 with remaining breast tissue in the following situations: - Age at breast cancer diagnosis under 50 - Mammographically dense tissue (BI-RADS category 3 or 4) - History of invasive lobular breast cancer She doesn't meet [facility] care path guidelines for MRI of breast. This will be reserved for use if medically necessary . Genetics referral made: we discussed this in depth last encounter and she declined. I didn't bring this up today. Chemoprevention discussion: N/A The patient is advised to exercise regularly, achieve/maintain ideal body weight, and to limit alcohol consumption to less than 7 drinks weekly for breast cancer risk reduction and overall health. She will resume her diet and exercise following her upcoming surgery She will return in one year for bilateral digital mammogram and clinical evaluation. She will call me in the interim should she have any questions or concerns. I spent a total of 27 minutes on the date of the service which included preparing to see the patient, [id number] patient care, completing clinical documentation, obtaining and/or reviewing separately obtained history, performing a medically appropriate examination, counseling and educating the pat ient/family/caregiver, ordering medications, tests, or procedures, communicating with other HCPs (not separately reported), independently interpreting results (not separately reported), communicatingresults to the patient/family/caregiver and care coordination (not separately reported). Damián Alexander APRN.SCARLETT Medical Breast Specialist [facility] Nurse Practitioner CC: documented in this encounter03-29-2022 Nurse Note* Argelia Muhammad Ma - 07/22/2021 10:42 AM EDT Last mammogram on: 07/16/20 Results: see report Is the patient active on [employer] Yes Electronically Signed By: Argelia Muhammad Ma In Department: [facility] REVIEW OF PATIENT HISTORY: OB History T2 L2 SAB0 IAB0 Ectopic0 Multiple0 Live Births0 Comment: Menarche: 12; Age at 1st : 19; Post menopausal FAMILY HISTORY Problem Relation Age of Onset Ovarian cancer Mother 96 Breast Cancer Sister 61 Osteoporosis Sister 72 Cervical Cancer Maternal Aunt Uterine Cancer Maternal Aunt PAST MEDICAL HISTORY Diagnosis Date Diabetes (HCC) Hyperlipidemia Hypertension Hypothyroidism Osteoporosis PAST SURGICAL HISTORY Procedure Laterality Date BREAST BIOPSY HX Left MASTECTOMY HX Right 1973 REMOVAL GALLBLADDER TONSILLECTOMY HX Social History Tobacco Use Smoking status: Former Smoker Quit date: 04/1970 Years since quittin.2 Smokeless tobacco: Never Used Substance Use Topics Alcohol use: No Comment: very rare Drug use: No * Argelia Muhammad Ma - 07/22/2021 10:34 AM EDT Last mammogram on: 07/16/2020 Results: see report Is the patient active on [employer] Yes Electronically Signed By: Argelia Muhammad Ma In Department: [facility] REVIEW OF PATIENT HISTORY: OB History T2 L2 SAB0 IAB0 Ectopic0 Multiple0 Live Births0 Comment: Menarche: 12; Age at 1st : 19; Post menopausal FAMILY HISTORY Problem Relation Age of Onset Ovarian cancer Mother 96 Breast Cancer Sister 61 Osteoporosis Sister 72 Cervical Cancer Maternal Aunt Uterine Cancer Maternal Aunt PAST MEDICAL HISTORY Diagnosis Date Diabetes (HCC) Hyperlipidemia Hypertension Hypothyroidism Osteoporosis PAST SURGICAL HISTORY Procedure Laterality Date BREAST BIOPSY HX Left MASTECTOMY HX Right 1971 REMOVAL GALLBLADDER TONSILLECTOMY HX Social History Tobacco Use Smoking status: Former Smoker Quit date: 04/1970 Years since quittin.2 Smokeless tobacco: Never Used Substance Use Topics Alcohol use: No Comment: very rare Drug use: No documented in this encounter03-29-2022 Instructions* Patient Instructions* Argelia Muhammad Ma - 07/22/2021 10:33 AM EDT BREAST CANCER SCREENING If you have remaining breast tissue, an annual screening mammogram and clinical breast exam by yourbreast provider is recommended. Option for mammography include digital mammograms and digital breast tomosynthesis. Single view mammograms are recommended if you have had a mastectomy with tissue flap reconstruction. Mammograms are not necessary if you have had a mastectomy with implant reconstruction. Breast MRI is NOT ROUTINELY recommended for screening following a cancer diagnosis and is NOT recommended for women who have undergone bilateral mastectomy procedures unless otherwise clinically indicated. MRI is recommended for breast cancer survivors with remaining breast tissue who: Have a history if chest irradiation under the age of 30. Carry genetic mutations conferring increased cancer risk (BRCA1, BRCA2, PTEN, TP53, CDH1, STK11, PALB2, CHEK2, ELISABETH) Per High Risk Care Path recommendations, screening breast MRI may be considered for women under the age of 65 with remaining breast tissue in the following situations: Patients who were under the age of 50 at the time of their breast cancer diagnosis Patients with mammographically dense tissue (BI-RADS category 3 or 4) Patients with a history of invasive lobular breast cancer GENETIC TESTING Approximately 10% of all breast cancers in the [place] are due to inherited genetic mutations. BRCA 1 and BRCA 2 are the most common genes associated with hereditary breast and ovarian cancer risk, but other genes known to increase breast cancer risk have also been identified. A certified genetic counselor can help decide if you are a candidate for testing, especially if your breast cancer was diagnosed prior to the age of 50 you had triple negative breast cancer you have a personal or family history of ovarian cancer you have a family member with a known genetic mutation you have a person or family history of male breast cancer you are of Ashken[place] descent HEALTHY LIFESTYLE MANAGEMENT (per NCCN Guidelines Version 1.2017 for Survivorship) All survivors should be encouraged to achieve and maintain a healthy lifestyle with attention to weight management, physical activity, and healthy dietary habits. Healthy Lifestyle habits have been associated with overall health and quality of life. For some cancers, a healthy lifestyle has been associated with a reduced risk of recurrence and . For a healthy lifestyle, all survivors should be encouraged to: Achieve and maintain a healthy body weight throughout life. Strive for at least 150 minutes of moderate or 75 minutes of vigorous activity per week. Maintain a healthy diet high in fruits, vegetables, and whole grains and low in red and processed meats, sugars, and fat in order to promote weight control and avoid obesity. Limit alcohol intake to less than one drink per day. Avoid tobacco products. Practice sun safety. Obtain 6-7 hours of sleep per night. Follow up with primary care physician regularly. WHEN TO CALL Tests may become necessary in some point of time. We encourage you to call with any new questions or concerns, particularly if your symptoms are worsening or have lasted longer than two weeks. Specifically, please report: breast or chest wall lumps, skin changes, swelling, or nipple discharge unexplained nausea or vomiting unexplained localized bone pain unexplained cough or shortness of breath unexplained swelling in your arm(s) unexplained and persistent headaches Breast Cancer Support and Resources Many resources are available in the community and offer an array of programs including support groups and community education programs. All of them have web sites you can access for additional information. These include but are not limited to: The Comprehensive Breast Cancer Program - my.[facility].org/services/ksdboc-mlmugs-jnjdswn [facility] - komenneohio.org Palestinian [employer] - cancer.org RAFI Breast Cancer Foundations - jdbcfoundation.org FORCE - facingourrisk.org [facility] [place] - brightpink.org Young Survival Coalition - youngsurvival.org 4th [place] - 4thangel.org [facility] - touchedbycancer.org ([place] and [place]) [facility] - thevictorycenter.org ([place] area) [facility] - yellowbrickplace.org ([place] area) [facility] - stewartscaringplace.org ([place] area) If you would like to compliment one of our caregivers you encountered today, you may do so at [email or web address]. Thank you ! documented in this encounter03-28-2022 Evaluation note* Encounter Date Diagnosis Assessment Notes Treatment Notes Treatment Clinical Notes Jun, Mild intermittent asthma without complication (ICD-10 - J45.20) Jun, JUNIE (obstructive sle ep apnea) (ICD-10 - G47.33) Patient was encouraged to continue regular use of CPAP at night and report any changes or difficulties with her machine to me, she did get a new machine after her last visit, had to replace the first 1 again as she was not tolerating that machine well, but she is happy with her current 1. Jun, Gastroesophageal reflux disease, unspecified whether esophagitis present (ICD-10 - K21.9) Encouraged to continue Nexium nightly, and elevate the head of her bed to avoid GERD induced cough at night [employer] Other 03-02-2022 NoteOPERATIVE NOTE PREOPERATIVE DIAGNOSIS: Enlarging lipoma left upper back/flank. POSTOPERATIVE DIAGNOSIS: Enlarging lipoma left upper back/flank. PROCEDURE: Excisional biopsy of enlarging lipomas left upper back. SURGEON: Escobar Victoria M.D. ANESTHESIA: Local with 0.5% Marcaine plain. ESTIMATED BLOOD LOSS: Less than 3 mL. TOTAL LENGTH OF THE LIPOMA: Approximately 7 cm. INDICATIONS AND CONSENT: Patient is an 80-year-old female with enlarging mass in the left upper back. Indications, risks, benefits, alternatives of proceeding with excisional biopsy under local anesthesia were explained extensively to the patient, including the risks of bleeding, infection, scarring, pain, recurrence and need for further surgery. All of her questions were answered. Informed consent was obtained. PROCEDURE: Patient brought to the operating room, placed in the right lateral decubitus position. The area on the left back was prepped and draped in the usual sterile fashion. It was anesthetized with 0.5% Marcaine plain. An incision was made over the long axis of the lesion in the area of the skin crease and carried down through subcutaneous tissue using sharp dissection. Lipoma was identified and dissected free using blunt and sharp dissection. It was approximately 7 cm in greatest diameter. It was sent off to Pathology. It did break up in a piecemeal fashion and was removed. The wound was irrigated. The subcutaneous tissue was re-approximated with interrupted 3-0 Monocryl sutures. The skin was then closed with a running 4-0 subcuticular Monocryl suture and skin glue. A sterile pressure dressing was applied. Sponge and needle counts were correct x2 per nursing personnel. Patient tolerated procedure well, was sent to recovery room in good condition. She should follow up in one week for wound check and pathology report. She is to call sooner with any problems or questions. CC: Dr. Zion Moore : [facility] Signed and Approved by: DR ESCOBAR VICTORIA . 06/27/2021 07:54:00[facility]02-11-2022 NoteChief Complaint consultation for lipoma HPI Staff 80 year old female presents on consultation from Dr. Moore for lipoma of back. Present roughly one year. Slight increase in size since first noted. Denies pain but describes an ache and numbness to this area. Chest US completed 05/21/21 with possible lipoma. History of Present Illness 80 yo female with htn, hyperlipidemia, hypothyroidism, JUNIE, GERD, referred for enlarging subcutaneous nodule left back/axilla; sore at times,no skin changes, no injury to area. history of small lipomas on extremities, none removed in past; recent US of area consistent with 7 x 5 cm subcutaneous lipoma. on baby asa daily, no NSAIDs. no tobacco use. Review of Systems PHQ Score Initial Depression Screen Score: 0 Physical Exam Vitals & Measurements T: 36.4 ?C(Temporal Artery) HR: 80(Peripheral) RR: 16 BP: 118/80 HT: 161 cm HT: 161.0 cm WT: 92.9 kg WT: 92.9 kg BMI: 35.84 HEENT: normal conjunctiva, sclera clear, no scleral icterus, EOM intact, PERRLA, oral mucosa moist without lesions. Neck: trachea midline, no mass, symmetric, no thyromegaly or nodules, no adenopathy Respiratory: lungs CTA, respirations non labored. Cardiovascular: regular rate and rhythm, no murmur, no pedal edema or varicosities. Gastrointestinal: obese. soft, non distended, no tenderness, no masses, no palpable hernias, diastasis recti no, no hepatosplenomegaly; normal bs Lymphatic: no cervical adenopathy, no axillary adenopathy, Musculoskeletal: normal gait, digits and nails without infection, nodes, cyanosis, clubbing. Skin: no rashes, no lesions, no ulcers, left upper back/lateral axilla with 7 cm subcutaneous nodule, soft, mobile, nontender, no skin changes; for age, insight intact, no focal deficits. Tests: , x-rays reviewed, review of old records completed, Discussed surgical options, risks, and possible complications with patient. Assessment/Plan 1. Lipoma of back (D17.1: Benign lipomatous neoplasm of skin and subcutaneous tissue of trunk) plan excisional biopsy under local anesthesia, at [facility]; informed consent obtained. Follow-up No qualifying data available Problem List/Past Medical History Ongoing BMI 35.0-35.9,adult Chronic cystitis Chronic seborrheic dermatitis Controlled diabetes mellitus with diabetic polyneuropathy, without long-term current use of insulin Dribbling Dysuria Ex-smoker Feeling of incomplete bladder emptying GERD (gastroesophageal reflux disease) History of right breast cancer HTN (hypertension) Hyperlipidemia Hypothyroidism Irritable bowel syndrome with diarrhea Lipoma of back Lumbar spondylosis Mixed incontinence Nocturia JUNIE (obstructive sleep apnea) Stress incontinence Stricture of female urethra Urge incontinence Urinary urgency Urine frequency Historical Asthma Schuster's palsy Breast cancer diabetes Diverticular disease Elevated cholesterol/high density lipoprotein ratio Hypertension Hypothyroidism Spinal stenosis Procedure/Surgical History Cystourethroscopy with dilation of urethral stricture (12/23/2016), Cystourethroscopy with dilationof urethral stricture (05/08/2014), Cystourethroscopy with dilation of urethral stricture (06/02/2011), Urodynamics (05/20/2011), Arthroscopy of knee, Carpal tunnel release, Cataract, Cholecystectomy, Colonoscopy, Mastectomy, Pessary. Medications Advair 250 mcg-50 mcg Powder, 1 inh, Inhalation, BID Curtis Thyroid 60 mg Tab aspirin 81 mg Oral EC Tab, 81 mg= 1 tab(s), Oral, Daily Colestid 1 g oral tablet, as directed cranberry, 300 mg, Oral, Daily Flonase 0.05 mg/inh nasal spray, 1 spray(s), Nasal, BID fluticasone CFC free 44 mcg/inh Inh Aer w/adapter, 2 puff(s), Inhalation, BID lisinopril, 20 mg, Oral, Daily Maxzide 75 mg-50 mg oral tablet, 1 tab(s), Oral, Daily Multivitamins and Minerals Nexium 20 mg Cap-DR, 20 mg= 1 cap(s), Oral, Daily potassium chloride 99 mg oral tablet, 198 mg= 2 tab(s), Oral, Daily simvastatin, 20 mg, Oral, Once a day (at bedtime) Singulair, 10 mg, Oral, Daily Allergies penicillin (Dizziness, Nausea) Social History Alcohol Current, 1-2 times per year, 03/15/2019 Substance Abuse - Denies Substance Abuse, 06/06/2021 Tobacco Former smoker, quit more than 30 days ago Tobacco Use:. Never Smokeless Tobacco Use:. Cigarettes, 06/06/2021 Family History Hypertension: Mother. Uterine cancer: Mother. Immunizations Vaccine Date Status SARS-CoV-2 (COVID-19) Ad26 vaccine 02/25/2021 Recorded influenza virus vaccine, inactivated 12/2020 Recorded SARS-CoV-2 (COVID-19) Ad26 vaccine 06/27/2020 Recorded SARS-CoV-2 (COVID-19) Ad26 vaccine 05/31/2020 [facility]Comment on above:Result Comment: Electronically Signed By: Escobar VICTORIA MD\Date and Time Signed: 06/06/21 14:09 [id number] Evaluation note * Encounter Date Diagnosis Assessment Notes Treatment Notes Treatment Clinical Notes Dec, JUNIE (obstructive sleep apnea) (ICD-10 - G47.33) New CPAP machine Dec, Mild intermittent asthma without complication (ICD-10 - J45.20) [employer] Other Evaluation note* Diagnosis Encounter for screening mammogram for breast cancer- Primary Fibrocystic breast changes, left [facility] Diagnosis Fibrocystic breast changes, left- Primary Personal history of breast cancer Personal history of malignant neoplasm of breast Family history of breast cancer in sister Family history of malignant neoplasm of breast Encounter for screening mammogram for breast cancer documented in this encounter [facility] note* Diagnosis Post-op pain- Primary Other acute postoperative pain documented in this encounter [employer] Phone: evaluation note* Diagnosis Family history of breast cancer in sister- Primary Family history of malignant neoplasm of breast Encounter for screening mammogram for breast cancer documented in this encounter [facility] note* Diagnosis Fibrocystic breast changes, left- Primary Personal history of breast cancer Personal history of malignant neoplasm of breast Family history of breast cancer in sister Family history of malignant neoplasm of breast Encounter for screening mammogram for breast cancer documented in this encounter [facility] noteNo InformationNort Digital Message Display Other History general Narrative - Reported* Type Description Date Medical History asthma Medical History Hypertension Medical History seasonal allergies Medical History breast cancer Medical History HYPOTHYROID Medical History JUNIE Medical History diabetes mellitus Surgical History right mastectomy 1969 Surgical History cholecystectomy 1973 Surgical History left knee surgery 1989 Hospitalization History as above [employer] Other History general Narrative - Reported* Type Description Date Medical History asthma Medical History Hypertension Medical History seasonal allergies Medical History breast cancer Medical History HYPOTHYROID Medical History JUNIE Medical History diabetes mellitus Surgical History right mastectomy 1969 Surgical History cholecystectomy 1973 Surgical History left knee surgery 1989 Surgical History hysterectomy 08/2021 Surgical History bladder suspension, unspecified 08/2021 Hospitalization History as above [employer] Other Reason for referral (narrative)* Diagnostic Procedure Only (Routine) - Authorized Specialty Diagnoses / Procedures Referred By Contac t Referred To Contact [facility] Diagnoses Encounter for screening mammogram for breast cancer Fibrocystic breast changes, left Procedures CHRISTINA SCREENING SCREENING MAMMOGRAPHY BI 2-VIEW BREAST INC CAD Damián Alexander APRN.CNP [address] [place] [address] [facility] [address] [place] [address] Referral ID Status Reason Start Date Expiration Date Visits Requested Visits Authorized [id number] Authorized Auto-Generat ed Referral 07/16/2021 08/15/2022 1 1 [facility] for referral (narrative)* Diagnostic Procedure Only (Routine) - Authorized Specialty Diagnoses / Procedures Referred By [place] t Referred To Contact [facility] Diagnoses Encounter for screening mammogram for breast cancer Procedures CHRISTINA SCREENING SCREENING MAMMOGRAPHY BI 2-VIEW BREAST INC Damián Hayes APRN.DYNAMOMETER MECHANIC [address] [place] [address] [facility] [address] [place] [address] Referral ID Status Reason Start Date Expiration Date Visits Requested Visits Authorized [id number] Authorized Auto-Generat ed Referral 08/04/2022 09/03/2023 1 1 [facility] for referral (narrative)* Diagnostic Procedure Only (Routine) - Pending Review Specialty Diagnoses / Procedures Referred By Contac t Referred To Contact [facility] Diagnoses Encounter for screening mammogram for breast cancer Procedures CHRISTINA SCREENING W LEANNA SCREENING DIGITAL BREAST TOMOSYNTHESIS BI SCREENING MAMMOGRAPHY BI 2-VIEW BREAST INC CAD Damián Alexander APRN.DYNAMOMETER MECHANIC [address] [place] [address] [facility] [address] [place] [address] Referral ID Status Reason Start Date Expiration Date Visits Requested Visits Authorized [id number] Pending Review Auto-Generat ed Referral 08/14/2022 09/13/2023 [facility] Auth/Cert Specialty Diagnoses / Procedures Referred By Carlo t Referred To Contact Diagnoses Cystocele affecting Uterine prolapse Urinary incontinence CYSTOCELE, UTERINE PROLAPSE, URINARY INCONTINENCE Procedures DE OFFICE/OUTPT VISIT,PROCEDURE ONLY DE ANTERIOR COLPORRAPHY RPR CYSTOCELE W/CYSTO DE ENDOSCOPIC INJECTION/IMPLANT DE LAPAROSCOPY W TOT HYSTERECTUTERUS <=250 GRAM W TUBE/OVARY HYSTERECTOMY VAGINAL CYSTOCELE REPAIR [place] [address] [place] [address] [employer] [address] [place] [address] Referral ID Status Reason Start Date Expiration Date Visits Re quested Visits Authorized [id number] 1 1 [employer] Phone: Summary Purpose Family History No Family History Records FoundNo Family History Records FoundNo Family History Records FoundNo Family History Records FoundNo Family History Records Found Advance Directives Documents on File Type Date Recorded Patient Shaker Tender Expl anation ACP-Advance Directive 09/01/2021 5:57 AM Li talag Will ACP-Power of Windlace Machine Operator 09/01/2021 5:57 AM AC P-[employer] of Windlace Machine Operator Additional Source Comments Source Comments (unrecognize d section and content) In the event this informatio n is protected by the Federal Confidentiality of Alcohol and Drug Abuse Patient Records regulations: The Federal rules restrict any use of the information to criminally investigate or prosecute any alcohol or drug abuse patient.In the event this information is protected by the Federal Confidentiality of Alcohol and Drug Abuse Patient Records regulations: The Federal rules restrict any use of the information to criminally investigate or prosecute any alcohol or drug abuse patient.In the event this information is protected by the Federal Confidentiality of Alcohol and Drug Abuse Patient Records regulations: The Federal rules restrict any use of the information to criminally investigate or prosecute any alcohol or drug abuse patient.In the event this information is protected by the Federal Confidentiality of Alcohol and Drug Abuse Patient Records regulations: The Federal rules restrict any use of the information to criminally investigate or prosecute any alcohol or drug abuse patient.In the event this information is protected by the Federal Confidentiality of Alcohol and Drug Abuse Patient Records regulations: The Federal rules restrict any use of the information to criminally investigate or prosecute any alcohol or drug abuse patient.[facility] ClinicIn the event this information is protected by the Federal Confidentiality of Alcohol and Drug Abuse Patient Records regulations: The Federal rules restrict any use of the information to criminally investigate or prosecute any alcohol or drug abuse patient. INFORMATION SOURCE (unrecogn ized section and content) DATE CREATED AUTHOR 07/20/2021 [facility] DATE CREATED AUTHOR AUTHOR'S ORGANIZ ATION 01/25/2022 [facility] DATE CREATED AUTHOR AUTHOR'S ORGANIZ ATION 03/09/[address] [facility] DATE CREATED AUTHOR AUTHOR'S ORGANIZ ATION 08/19/2022 [facility] DATE CREATED AUTHOR AUTHOR'S ORGANIZ ATION 04/01/2023 [facility] EPIC Reason for Visit (unrecogniz ed section and content) Reason Comments Established Patient Annual breast exam w ith mammogram; no breast concerns at this time; she is scheduled for a hysterectomy September 01 for bladder and uterus prolapse Specialty Diagnoses / Procedures Referred By Carlo arreola Referred To Contact Diagnoses Urinary incontinence, unspecified type Urinary incontinence, unspecified type [R32] Procedures DE ENDOSCOPIC INJECTION/IMPLANT CYSTOSCOPY [place] [address] [address] [facility] [address] [place] [address] Referral ID Status Reason Start Date Expiration Date Visits Re quested Visits Authorized [id number] 1 1 Reason Comments Established Patient Annual breast exam w ith mammogram; no breast concerns at this time; working on weight Ordered Prescriptions (unrec ognized section and content) Prescription Sig Dispensed Refills Start Date End Da te senna-docusate (SENOKOT S) 8.6-50 MG per tablet Take 1 tablet by mouth in the morning and at bedtime 30 tablet 0 09/01/2021 ondansetron (ZOFRAN ODT) 4 MG disintegrating tablet Take 1 tablet by mouth every 8 hours as needed for Nausea or Vomiting 15 tablet 0 09/01/2021 ciprofloxacin (CIPRO) 500 MG tablet Take 1 tablet by mouth 2 times daily for 7 days 14 tablet 0 09/01/2021 09/08/2021 HYDROcodone-acetaminophen (NORCO) 5-325 MG per tabletIndications:Post-op pain Take 1 tablet by mouth every 4 hours as needed for Pain for up to 3 days. Intended supply: 3 days. Take lowest dose possible to manage pain 18 tablet 0 09/01/2021 09/04/2021 ibuprofen (ADVIL;MOTRIN) 600 MG tablet Take 1 tablet by mouth every 6 hours as needed for Pain 30 tablet 0 09/01/2021 Prescription Sig Dispensed Refills Start Date End Da te cephALEXin (KEFLEX) 500 MG capsule Take 1 capsule by mouth 3 times daily for 5 days 15 capsule 0 01/15/2022 01/20/2022 ondansetron (ZOFRAN-ODT) 4 MG disintegrating tablet Take 1 tablet by mouth 3 times daily as needed for Nausea or Vomiting 21 tablet 0 01/15/2022 sennosides-docusate sodium (SENOKOT-S) 8.6-50 MG tablet Take 1 tablet by mouth daily for 14 days 14 tablet 0 01/15/2022 01/29/2022 Scheduled Active and Recently Administ ered Medications (unrecognized section and content) Medication Order 08/30/2021 08/31/2021 09/01/2021 ceFAZolin (ANCEF) 2000 mg in dextrose 5 % 50 mL IVPB 2,000 mg, IntraVENous, ONCE, 1 dose, On Wed09/01/21 at 0630, Antimicrobial Indications: Surgical Prophylaxis 06 (Due) phenazopyridine (PYRIDIUM) tablet 200 mg (COMPLETED) 200 mg, Oral, ONCE, 1 dose, On Wed09/01/21 at 0630, Take with food. May cause discoloration of urine. 0633 (Given - Provid er: Manisha Fischer RN) scopolamine (TRANSDERM-SCOP) transdermal patch 1 patch 1 patch, TransDERmal, Administer over 72 Hours, EVERY 72 HOURS, First dose on Wed09/01/21 at 0630, 1.5 mg patch delivers 1 mg over 3 days. Apply patch to hairless area behind the ear. 0634 (Patch Applied - Provider: Manisha Fischer RN) sodium chloride flush 0.9 % injection 5-40 mL 5-40 mL, IntraVENous, EVERY 12 HOURS SCHEDULED (2 times per day), First dose on Wed09/01/21 at 0900, Until Discontinued, For Line Patency: Peripheral IV = 5 mL; Midline or Central Line = 10 mL/lumen. If following IV push medication, administer flush at same rate as the IV push. Flush volume is determined by type of infusion therapy being given. For non-viscous solutions use: Peripheral IV = 5 mL Midline or Central Line = 10 mL/lumen For viscous solutions (i.e. blood components, parenteral nutrition, contrast media, or after obtaining blood sample) use: Peripheral IV = 10 mL Midline or Central Line = 20 mL/lumen, Pre-op (day of surgery) 0900 (Due)2100 (Due) sodium chloride flush 0.9 % injection 5-40 mL 5-40 mL, IntraVENous, EVERY 12 HOURS SCHEDULED (2 times per day), First dose on Wed09/01/21 at 0900, Until Discontinued, For Line Patency: Peripheral IV = 5 mL; Midline or Central Line = 10 mL/lumen. If following IV push medication, administer flush at same rate as the IV push. Flush volume is determined by type of infusion therapy being given. For non-viscous solutions use: Peripheral IV = 5 mL Midline or Central Line = 10 mL/lumen For viscous solutions (i.e. blood components, parenteral nutrition, contrast media, or after obtaining blood sample) use: Peripheral IV = 10 mL Midline or Central Line = 20 mL/lumen, PACU only 0900 (Due)2100 (Due) Continuous Medication Order 08/30/2021 08/31/2021 09/01/2021 lactated ringers infusion IntraVENous, at 100 mL/hr, CONTINUOUS, Starting on Wed09/01/21 at 0630, Pre-op (day of surgery) 0702 (New Bag - Prov ider: Manisha Fischer RN)0730 (NoRateChange - Provider: Bassam Sandy MD)0906 (Paused - Provider: Bassam Sandy MD - Comment: Switch to gravity)0907 (Restarted - Provider: Bassam Sandy MD) PRN Medication Order 08/30/2021 08/31/2021 09/01/2021 0.9 % sodium chloride infusion IntraVENous, at 5-250 mL/hr, PRN, if patient receiving piggyback infusions and maintenance fluids are not ordered OR KVO fluids to protect IV site / prevent frequent line interruptions/ long duration, Starting on Wed09/01/21 at 0601, For piggyback infusion, administer at same rate as piggyback for a total of 25 mL. Enter 25 mL into dose field and piggyback rate into rate field of order. If piggyback is infusing at a rate less than 100 mL/hr, enter 25 mL into dose field and 100 mL/hr into rate field of order. For KVO fluids, enter rate of 20 mL/hr or less into rate field of order., Pre-op (day of surgery) 0.9 % sodium chloride infusion 25 mL, IntraVENous, at 100 mL/hr, PRN, If patient receiving piggyback infusions without ordered maintenance IV fluids or with frequent/long duration piggyback infusions, Starting on Wed09/01/21 at 0809, Administer at the same rate as the piggyback being infused., PACU only diphenhydrAMINE (BENADRYL) injection 12.5 mg 12.5 mg, IntraVENous, ONCE PRN, 1 dose, Starting on Wed09/01/21 at 0809, Until Wed09/01/21 at 2359, Itching, PACU only HYDROmorphone (DILAUDID) injection 0.5 mg HYDROmorphone (DILAUDID) 1.5mg IV is equivalent to morphine 10mg IV, 0.5 mg, IntraVENous, EVERY 5 MIN PRN, 4 doses, Starting on Wed09/01/21 at 0809, Until Discontinued, Pain Severe (7-10), Phase I - Initial therapy for severe pain., PACU only 920 (Given - Provid er: Veronique Martinez RN)929 (Given - Provider: Veronique Martinez RN) ipratropium-albuterol (DUONEB) nebulizer solution 1 ampule 1 ampule, Inhalation, ONCE PRN, 1 dose, Starting on Wed09/01/21 at 0809, Until Wed09/01/21 at 2359, Shortness of Breath, Initiate RT Bronchodilator Protocol: No, PACU only labetalol (NORMODYNE;TRANDATE) injection syringe 10 mg 10 mg, IntraVENous, EVERY 15 MIN PRN, 2 doses, Starting on Wed09/01/21 at 0809, Until Discontinued, High Blood Pressure, for SBP greater than 180 mmHg for 2 consecutive measurements taken from different sites., Inform provider if SBP is still greater than 180 mmHg, 10 minutes after second antihypertensive dose is administered., PACU only lidocaine PF 1 % injection 1 mL 1 mL, IntraDERmal, ONCE PRN, 1 dose, Starting on Wed09/01/21 at 0601, Until Wed09/01/21 at 2359, IV start, Pre-op (day of surgery) lidocaine-EPINEPHrine 1 %-1:653889 injection (CANCELED) PRN, Starting on Wed09/01/21 at 0806, Until Wed09/01/21 at 0909, Intra-op 0806 (Given - Provid er: Jus Blank, - Comment: verified and placed on field) meperidine (DEMEROL) injection 12.5 mg 12.5 mg, IntraVENous, EVERY 5 MIN PRN, 2 doses, Starting on Wed09/01/21 at 0809, Until Discontinued, Shivering, , May give every 5 minutes to max of 25mg., PACU only midazolam PF (VERSED) injection 2 mg 2 mg, IntraVENous, ONCE PRN, 1 dose, Starting on Wed09/01/21 at 0809, Until Wed09/01/21 at 2359, Anxiety, PACU only morphine (PF) injection 2 mg 2 mg, IntraVENous, EVERY 5 MIN PRN, 10 doses, Starting on Wed09/01/21 at 0809, Until Discontinued, Pain Moderate (4-6), Phase I - Initial therapy for moderate pain., PACU only ondansetron (ZOFRAN) injection 4 mg (COMPLETED) 4 mg, IntraVENous, ONCE PRN, 1 dose, Starting on Wed09/01/21 at 0809, Until Wed09/01/21 at 2359, Nausea, PACU only 0920 (Given - Provid er: Veronique Martinez RN) oxyCODONE-acetaminophen (PERCOCET) 5-325 MG per tablet 1 tablet (COMPLETED) Mg/kg dosing is based on the oxycodone component., 1 tablet, Oral, ONCE PRN, 1 dose, Starting on Wed09/01/21 at 0809, Until Wed09/01/21 at 2359, Pain Moderate (4-6), Maximum dose of acetaminophen is 4000 mg from all sources in 24 hours., PACU only 1014 (Given - Provid er: Veronique Martinez RN) oxyCODONE-acetaminophen (PERCOCET) 5-325 MG per tablet 2 tablet Mg/kg dosing is based on the oxycodone component., 2 tablet, Oral, ONCE PRN, 1 dose, Starting on Wed09/01/21 at 0809, Until Wed09/01/21 at 2359, Pain Severe (7-10), Maximum dose of acetaminophen is 4000 mg from all sources in 24 hours., PACU only promethazine (PHENERGAN) injection 6.25 mg Only to be given as IM injection., 6.25 mg, IntraMUSCular, EVERY 5 MIN PRN, 2 doses, Starting on Wed09/01/21 at 0809, Until Discontinued, Nausea, Recommended route is IM. Caution if used IV. Check IV site for infiltrate prior to and during administration. Secondary Antiemetic therapy. Product instructions: For IV administration, dilute to 10 ml with normal saline. Must be administered over at least 10 minutes., PACU only sodium chloride flush 0.9 % injection 5-40 mL 5-40 mL, IntraVENous, PRN, Starting on Wed09/01/21 at 0601, Until Discontinued, Line Care, After every IV line use, For Line Patency: Peripheral IV = 5 mL; Midline or Central Line = 10 mL/lumen. If following IV push medication, administer flush at same rate as the IV push. Flush volume is determined by type of infusion therapy being given. For non-viscous solutions use: Peripheral IV = 5 mL Midline or Central Line = 10 mL/lumen For viscous solutions (i.e. blood components, parenteral nutrition, contrast media, or after obtaining blood sample) use: Peripheral IV = 10 mL Midline or Central Line = 20 mL/lumen, Pre-op (day of surgery) sodium chloride flush 0.9 % injection 5-40 mL 5-40 mL, IntraVENous, PRN, Starting on Wed09/01/21 at 0809, Until Discontinued, Line Care, After every IV line use, For Line Patency: Peripheral IV = 5 mL; Midline or Central Line = 10 mL/lumen. If following IV push medication, administer flush at same rate as the IV push. Flush volume is determined by type of infusion therapy being given. For non-viscous solutions use: Peripheral IV = 5 mL Midline or Central Line = 10 mL/lumen For viscous solutions (i.e. blood components, parenteral nutrition, contrast media, or after obtaining blood sample) use: Peripheral IV = 10 mL Midline or Central Line = 20 mL/lumen, PACU only No Frequency Medication Order 08/30/2021 08/31/2021 09/01/2021 bupivacaine-EPINEPHrine (MARCAINE-w/EPINEPHRINE) 0.5% -1:781352 injection 1 dose, Starting on Wed09/01/21 at 0705, Until Wed09/01/21 at 1914, Reynoso, Ami: cabinet override, Reynoso, Ami: cabinet override 0715 (Due) ceFAZolin (ANCEF) IVPB Starting on Wed09/01/21 at 0621, For 1 dose, Manisha Fischer: cabinet override 0630 (Due) ferric subsulfate (ASTRINGYN) 259 MG/GM solution Starting on Wed09/01/21 at 0653, For 1 dose, Edgardo, Radha: cabinet override 0700 (Due) lidocaine-EPINEPHrine 1 %-1:001785 injection 1 dose, Starting on Wed09/01/21 at 0706, Until Wed09/01/21 at 1914, Reynoso, Ami: cabinet override, Reynoso, Ami: cabinet override 0715 (Due) scopolamine (TRANSDERM-SCOP) 1 MG/3DAYS transdermal patch Starting on Wed09/01/21 at 0621, For 1 dose, Manisha Fischer: cabinet override sevoflurane inhalation liquid Starting on Wed09/01/21 at 0711, For 1 dose, BASSAM SANDY: cabinet override 0715 (Due) strong iodine 5 % solution 1 dose, Starting on Wed09/01/21 at 0653, Until Wed09/01/21 at 1859, Reynoso, Ami: cabinet override, Reynoso, Ami: cabinet override 0700 (Due) PRN Medication Order 01/13/2022 01/14/2022 01/15/2022 bupivacaine (MARCAINE) 0.5 % injection (CANCELED) PRN, Starting on Nani 01/15/22 at 1254, Until Nani 01/15/22 at 1309, Intra-op 1254 (Given - Provid er: Jus Blank, DO - Comment: on sterile field utiized for block during vaginal viri urethral procedure.) lidocaine (XYLOCAINE) 2 % uro-jet (CANCELED) PRN, Starting on Nani 01/15/22 at 1253, Intra-op 1253 (Given - Provid er: Jus Blank, DO - Comment: surgeon injected into urethra prior to start of procedure.) No Frequency Medication Order 01/13/2022 01/14/2022 01/15/2022 bupivacaine (PF) (MARCAINE) 0.5 % injection 1 dose, Starting on Nani 01/15/22 at 1230, Until Wed01/16/22 at 0044, Garima Clinton: cabinet override, Garima Clinton: cabinet override 1245 (Due) lidocaine (XYLOCAINE) 2 % uro-jet Starting on Nani 01/15/22 at 1231, For 1 dose, Garima Clinton: cabinet override 1245 (Due) Care Teams (unrecognized sec tion and content) Keg Washer Relationship Specialty Start Date End Date Sidney Moore, DO [address] [place] [address] PCP - General Internal Medicine 09/01/21 Keg Washer Relationship Specialty Start Date End Date Sidney Moore, DO [address] [place] [address] PCP - General Internal Medicine 09/01/21 FOR RECORDS PERTAINING TO PATIENTS WHO ARE OR HAVE BEEN ENROLLED IN A CHEMICAL DEPENDENCY/SUBSTANCEABUSE PROGRAM, SOME INFORMATION MAY BE OMITTED. This clinical summary was aggregated from multiple sources. Caution should be exercised in using it in the provision of clinical care. This summary normalizes information from multiple sources, and as a consequence, information in this document may materially change the coding, format and clinical context of patient data. In addition, data may be omitted in some cases. CLINICAL DECISIONS SHOULD BE BASED ON THE PRIMARY CLINICAL RECORDS. [facility] [employer] [facility]. provides no warranty or guarantee of the accuracy or completeness of information in this document.
[2023-06-07 12:04] LABS: Albumin Level 3.8 g/dL (3.4-5.0); Calcium 10.7 mg/dL (8.5-10.1)
[2023-06-07 12:08] LABS: Microalbumin Urine Random <1.3 mg/dL (<=30.0)
[2023-06-08 14:09] LABS: PTH, Intact 33 pg/mL (15-65)
== END 2023-06-07 11:22 | disposition home or self-care (01) ==
LOC: LAB 11:21
PROVIDERS: PCP Internal Medicine; Visit Provider Internal Medicine
DX: E83.52 Hypercalcemia (principal)
CPT/HCPCS: 36415; 82042; 82043; 82310; 83970

== ENCOUNTER 2023-11-16 08:31 | Emergency (ER) | payer MEDICARE, SELFPAY ==
[2023-11-16 08:40] VITALS: BP 162/71; PULSE 69; TEMP 36.5; O2SAT 94; BMI 36.9
--- NOTE | 2023-11-16 09:12 | US_ITS ---
The [address] [address] Patient Name: JESSICA LAO MRN: [id number] date: 1940 Sex: F Assigned Patient Location: ED.MAIN Current Patient Location: ER Accession/Order Number: [id number] Exam Date: 11/16/2023 09:18 Report Date: 11/16/2023 10:19 At the request of: LEXI BELLE Procedure: US venous doppler LE LT EXAMINATION: US venous doppler LE LT HISTORY: swelling and pain r/o dvt COMPARISON: No relevant comparison available. FINDINGS: REGION: Left lower extremity THROMBI: None. COMPRESSIBILITY: Normal compressibility. FLOW: Normal waveform and antegrade flow between 5 and 20 cm/s. OTHER: Subcutaneous edema. US/US venous doppler LE LT IMPRESSION: 1. No deep vein thrombus within the left lower extremity. Electronically authenticated by: JEANETTE PARDO Date: 11/16/2023 10:19
--- NOTE | 2023-11-16 10:01 | ED.EXTPRO1 ---
HPI - Extremity Problem General Chief complaint: Extremity Problem, Nontraumatic Stated complaint: BILATERAL LEG SWELLING Time Seen by Provider: 11/16/23 08:51 Source: patient Mode of arrival: Wheelchair Limitations: no limitations History of Present Illness HPI Narrative: The patient coming to the ER with a left leg pain as well as bilateral chronic leg edema, she also is complaining of perineal irritation after she has been started on a new diuretic and she has been urinating more frequently Patient denies any other planes of fever chills nausea vomiting or any other concerns She mentioned that she recently started using compression stockings for her leg and she noted that the pain started after that Related Data Previous Rx's ?Medication ?Instructions ?Recorded clotrimazole 1 % topical cream 1 applic topical BID #30 grams 11/16/23 meloxicam 7.5 mg tablet 7.5 mg PO DAILY PRN pain #10 tabs 11/16/23 Allergies Allergy/AdvReac Type Severity Reaction Status Date / Time Penicillins Allergy Intermediate Weakness Verified 11/16/23 08:40 phenobarbital Allergy Intermediate Headache Verified 11/16/23 08:40 Review of Systems ROS Status of ROS 10 or more systems reviewed and unremarkable except as noted in history and below Exam Narrative Exam Narrative: Nurses notes and vital signs reviewed and patient is not hypoxic. General: Well-appearing and in no apparent distress. Skin: Warm, dry, no pallor noted. No rash. Head: Normocephalic, atraumatic. Neck: Supple, non-tender. Eye: Pupils are equal, round and EOMI. No scleral icterus. Ears, Nose, Mouth, and Throat: TM are clear, no nasal mucosal hypertrophy. Oral mucosa is moist, no posterior oropharynx erythema, uvula is mid-line Cardiovascular: Regular Rate and Rhythm without murmur, gallop or rub. Respiratory: No accessory muscle use or respiratory distress. Lungs are clear to auscultation, no wheezing, rales or rhonchi Chest Wall: no tenderness Back: No midline thoracic or lumbar vertebral tenderness. No CVA tenderness Musculoskeletal: Bilateral chronic leg edema and skin changes with multiple varicose vein, patient pointing to the posterior aspect of the knee as the site of tenderness GI: Abdomen is soft, non-distended. Normal bowel sounds. No masses appreciated. No tenderness to palpation. No rebound, guarding, or rigidity noted. Neurological: A&O x4. No cranial nerve dysfunction observed. No truncal ataxia. Moves all extremities. Sensation intact. Psychiatric: Cooperative and interactive. Normal mood and affect. Perineal examination shows mild irritation and redness in the perineal area with no signs of infection and no discharge Constitutional Vital Signs, click to edit/add: Last Vital Signs Temp 97.7 F 11/16/23 08:40 Pulse 69 11/16/23 08:40 Resp 20 11/16/23 08:40 BP 162/71 H 11/16/23 08:40 Pulse Ox 94 L 11/16/23 08:40 O2 Del Method Room Air 11/16/23 08:40 Course Vital Signs Vital signs: Vital Signs Temperature 97.7 F 11/16/23 08:40 Pulse Rate 69 11/16/23 08:40 Respiratory Rate 20 11/16/23 08:40 Blood Pressure 162/71 H 11/16/23 08:40 Pulse Oximetry 94 L 11/16/23 08:40 Oxygen Delivery Method Room Air 11/16/23 08:40 Temperature 97.7 F 11/16/23 08:40 Pulse Rate 69 11/16/23 08:40 Respiratory Rate 20 11/16/23 08:40 Blood Pressure 162/71 H 11/16/23 08:40 Pulse Oximetry 94 L 11/16/23 08:40 Oxygen Delivery Method Room Air 11/16/23 08:40 MDM - Extremity (Nontraumatic) MDM Narrative Medical decision making narrative: Dopplers of the lower extremity showed no acute pathology The patient also had a urinalysis showed no acute pathology She have no history of immobilization or any long trips Patient presented with a possible candidal infection in the perineal area mostly secondary to the multiple use of pads because of urine leaking. Right now the patient will be treated with the clotrimazole cream Jeramie wrap and Mobic for left knee The patient is to follow up with primary care physician in next 2-3 days or to return to the emergency department should any of the signs or symptoms worsen or new symptoms develop. The patient agrees with the following Diagnosis and Treatment plan and the patient will be discharged home. Lab Data Labs: Lab Results 11/16/23 Range/Units 10:00 Urine Color Lt. yellow (YELLOW) Urine Clarity Clear (CLEAR) Urine pH 8.0 (5.0-9.0) Ur Specific Zachary 1.010 (1.005-1.025) Urine Protein Negative (NEG/TRACE) mg/dL Urine Glucose (UA) Negative (NEGATIVE) mg/dL Urine Ketones Negative (NEGATIVE) mg/dL Urine Occult Blood Negative (NEGATIVE) Urine Nitrite Negative (NEGATIVE) Urine Bilirubin Negative (NEGATIVE) Urine Urobilinogen 0.2 (0.2-1.0) EU/dL Ur Leukocyte Esterase Negative (NEGATIVE) Discharge Plan Discharge Stand Alone Forms: Portal Instructions Chief Complaint: Extremity Problem, Nontraumatic Clinical Impression: Leg pain, Candidiasis of perineum Patient Disposition: Home, Self-Care Time of Disposition Decision: 10:28 Condition: Good Prescriptions / Home Meds: New clotrimazole 1 % cream 1 applic topical BID Qty: 30 0RF Rx Instructions: apply to the perineal area meloxicam 7.5 mg tablet 7.5 mg PO DAILY PRN (Reason: pain ) Qty: 10 0RF Print Language: Sammarinese Instructions: Yeast Infection (ED), Leg Pain (ED) Referrals: Sidney Moore DO [Primary Care Provider] - 1 week
[2023-11-16 10:31] LABS: Bilirubin Urine NEGATIVE (NEGATIVE); Blood Urine NEGATIVE (NEGATIVE); Clarity Urine CLEAR (CLEAR); Color Urine LT. YELLOW (YELLOW); Glucose Urine UA NEGATIVE (NEGATIVE); Ketones Urine NEGATIVE (NEGATIVE); Leukocyte Esterase Urine NEGATIVE (NEGATIVE); Nitrite Urine NEGATIVE (NEGATIVE); Protein Urine NEGATIVE (NEG/TRACE); Urobilinogen Urine 0.2 EU/dL (0.2-1.0)
[2023-11-16 10:32] LABS: Urine Microscopic Indicated NO
[2023-11-16 10:56] VITALS: BP 178/73; PULSE 62; O2SAT 98
== END 2023-11-16 10:59 | disposition home or self-care (01) ==
PROVIDERS: Emergency Provider Emergency Medicine; PCP Internal Medicine
DX: M79.605 Pain in left leg (principal); B37.2 Candidiasis of skin and nail; M79.89 Other specified soft tissue disorders; E11.65 Type 2 diabetes mellitus with hyperglycemia; I10 Essential (primary) hypertension
CPT/HCPCS: 36415; 80053; 81003; 82043; 82570; 83036; 84443; 85025; 93971; 99284

== ENCOUNTER 2023-11-16 11:01 | Outpatient (OUT) | payer MEDICARE, SELFPAY ==
--- OUTSIDE RECORDS SUMMARY | 2023-11-16 11:19 | XMS_ITS | CCD ---
Author Organization [facility] Care Team Providers Care Door Hanger Name Role Phone Unavailable Primary Care Provider UnavailSidney Ibrahim DO Primary Care Provider [phone] [place] Unavailable Sidney Moore DO Primary Care Provider JUS BLANK Admitting Unavailable CROMYRIAM, JUS Price Attending Unavailable SIDNEY MOORE Primary Care Unavailable ABHAY, JUS Price Admitting Unavailable ABHAY, JUS Price Attending Unavailable SIDNEY MOORE Primary Care Unavailable NILL, DR CODY Admitting Unavailable NILL, DR CODY Attending Unavailable BALL, DR LITTLE Primary Care Unavailable NILL, DR CODY Consulting Unavailable CROAK, JUS Admitting Unavailable CROAK, JUS Attending Unavailable BALL, DR LITTLE Primary Care Unavailable CROAK, JUS Consulting Unavailable CROAK, JUS Admitting Unavailable CROAK, JUS Attending Unavailable BALL, DR LITTLE Primary Care Unavailable CROAK, JUS Consulting Unavailable BALL, DR LITTLE Admitting Unavailable BALL, DR LITTLE Attending Unavailable BALL, DR LITTLE Primary Care Unavailable BALL, DR LITTLE Consulting Unavailable CHAR, DR JEANETTE Sosa Consulting Unavailable PATRICK, DR LITTLE Admitting Unavailable BALL, DR LITTLE Attending Unavailable BALL, DR LITTLE Primary Care Unavailable BALL, DR LITTLE Consulting Unavailable MICA, DR FRANCHESCA Marquez Consulting Unavailable PATRICK, DR LITTLE Admitting Unavailable BALL, DR LITTLE Attending Unavailable BALL, DR LITTLE Primary Care Unavailable BALL, DR LITTLE Consulting Unavailable MICA, DR FRANCHESCA Marquez Consulting Unavailable PATRICK, DR LITTLE Admitting Unavailable BALL, DR LITTLE Attending Unavailable BALL, DR LITTLE Primary Care Unavailable BALL, DR LITTLE Consulting Unavailable CHAR, DR JEANETTE Sosa Consulting Unavailable Sidney Moore Unavailable Unavailable Primary Care Provider UnavailMaximus Ogden Unavailable [phone] CLIFFORD MARTELL Attending Unavailable MIA, MARCIE A Attending Unavailable Unavailable Primary Care Provider Unavailabl e Allergies Allergy Classification Reported Allergen(s) Allergy Type Date of Onset Reaction(s) Facility (6 sources) Penicillins Drug Intolerance 05-31-19 19 Mental Status Change, Other: See Comments, Dizziness or Vertigo [facility] (15 sources) Penicillin Drug Allergy Unknown [facility] Other (15 sources) PHENOBARB Propensity to adverse reactions Headaches [facility] Other (15 sources) bee sting Propensity to adverse reactions Unknown [facility] Other (1 source) benzoin resin Drug Allergy 05-06-19 16 [facility] (1 source) Penicillins Drug allergy (disorder) 05-06-19 16 [facility] (4 sources) Penicillins Drug Intolerance 05-31-19 19 Mental Status Change, Other: See Comments [facility] (1 source) patient allergy list reviewed by nurse or physicia Propensity to adverse reactions 03-14-20 13 Comment:Done [facility] Other (1 source) Allergies Reconciled Propensity to adverse reactions Unknown [facility] Other Medications Current Medications Medication Drug Class(es) [...] Twice a day for 90 days Active [id number] actuat albuterol 0.09 mg/actuat metered dose inhaler (15 sources) beta2-Adrenergic Agonist Start: 07-09-2020 take 2 [...] nebulizer solution 1 ampule aspirin 81 mg delayed release oral tablet (20 sources) Platelet Aggregation Inhibitor, Nonsteroidal Anti-inflammatory Drug take 1 tablet by mouth once daily aspirin, enteric coated (ASPIRIN, ENTERIC COATED) 81 mg EC tablet Take 81 mg by mouth once daily. 0 Active take 1 tablet by rachid th every twenty-four hours Aspirin 81 81 MG 1 tablet Orally Once a day Active take 1 tablet by mouth once marie y Aspirin 81 81 MG 1 tablet Orally Once a day Active Comment on above: Take 81 mg by mouth once daily. Calcium (15 sources) Phosphate Binder, Calcium Calcium Active calcium [...] Active colestipol hydrochloride 1000 mg oral tablet (19 sources) Bile Acid Sequestrant Start: 11-25-2022 take [...] mouth daily 2 tabs po 0 Active cranberry fruit extract (CRANBERRY EXTRACT ORAL) (7 sources) cranberry fruit extract (CRANBERRY EXTRACT ORAL) Take 600 mg by mouth. 0 Active Comment on above: Take 600 mg by mouth . Cranberry preparation (15 sources) Non-Standardized Food Allergenic Extract, Non-Standardized Plant Allergenic Extract Cranberry Active dicyclomine hydrochloride 10 mg oral capsule (20 sources) Anticholinergic take 1 capsule by mouth at bedtime dicyclomine (BENTYL) 10 mg capsule Take 10 mg by mouth before meals and at bedtime. 0 Active Comment on above: Take 10 mg by mouth before meals and at bedtime. 1 ml diphenhydrAMINE hydrochloride 50 mg/ml cartridge (1 source) Histamine-1 Receptor Antagonist Start: End: diphenhydrAMINE (BENADRYL) injection 12.5 mg docusate sodium 50 mg / sennosides, custodial 8.6 mg oral tablet (3 sources) Start: End: 10-06-2 022 take 1 tablet by mouth once daily sennosides-docusate sodium (SENOKOT-S) 8.6-50 MG tablet Take 1 tablet by mouth daily for 14 days 14 tablet 0 01/15/2022 01/29/2022 Active Start: 09-01-2021 take 8.6-50 mg by mo uth once at bedtime senna-docusate (SENOKOT S) 8.6-50 MG per tablet Take 1 tablet by mouth in the morning and at bedtime 30 tablet 0 09/01/2021 Active esomeprazole 20 mg delayed release oral capsule (20 sources) Proton Pump Inhibitor take 1 capsule by mouth once daily, then take 6 capsules by mouth in the morning esomeprazole (NEXIUM) 20 mg capsule Take 20 mg by mouth DAILY (6 AM). 0 Active take 1 capsule by mo uth every twenty-four hours NexIUM 40 MG 1 capsule Orally Once a day Active esomeprazole Mag nesium (NEXIUM) 20 MG PACK Take 20 mg by mouth daily as needed 2 po 0 Active Comment on above: Take 20 mg by mouth DAILY (6 AM). Samia-C (15 sources) Samia-C Active Estradiol (1 source) Estrogen End: 09-02-19 22 Estradiol (ESTRACE PO) Take by mouth 0 09/01/2021 Discontinued (Stop Taking at Discharge) estrogens, conjugated (custodial) 0.625 mg/ml vaginal cream (7 sources) Estrogen conjugated estrogens (PREMARIN) vaginal cream Use vaginally once each week. 0 Active Comment on above: Use vaginally once e ach week. fluticasone (15 sources) Corticosteroid Flonase Active fluticasone / salmeterol (16 sources) Corticosteroid, beta2-Adrenergic Agonist take 1 puff(s) [...] Thiazide Diuretic take 1 tablet by mouth once daily triamterene-hydrochl orothiazide (MAXZIDE) 75-50 mg per tablet Take 1 tablet by mouth once daily. 0 Active Comment on above: Take 1 tablet [...] Enzyme Inhibitor take 1 tablet by mouth once daily lisinopril (ZESTRIL, PRINIVIL) 20 mg tablet Take 20 mg by mouth once daily. 0 Active Comment on above: Take 20 [...] 2 tablets by mouth daily 0 Active multivit,thx,calcium,iron, mins (MULTIVITAMIN AND MINERAL ORAL) (7 sources) multivit,thx,narcisa cium ,iron,mins (MULTIVITAMIN AND MINERAL ORAL) Take by mouth. 0 Active Comment on above: Take by mouth. Multivitamin preparation (15 sources) Multivitamin Act reuben ondansetron 4 mg disintegrating oral tablet (5 sources) Serotonin-3 Receptor Antagonist Start: 2021 take 1 tablet by mouth three times daily as needed for nausea ondansetron (ZOFRAN-ODT) 4 MG disintegrating tablet Take 1 tablet by mouth 3 times daily as needed for Nausea or Vomiting 21 tablet 0 01/15/2022 Active Start: 09-01-2021 take 1 tablet by [facility] every eight hours as needed for nausea ondansetron (ZOFRAN ODT) 4 MG disintegrating tablet Take 1 tablet by mouth every 8 hours as needed for Nausea or Vomiting 15 tablet 0 09/01/2021 Active Start: 09-01-2021 End: 09-01-2021 ondansetron (ZOFRAN) 4 MG/2M L injection Start: 09-01-2021 End: 09-01-2021 ondansetron (ZOFRAN) injecti on 4 mg Potassium (15 sources) Potassium Active potassium gluconate 2.5 meq oral tablet (9 sources) Potassium 99 mg tab Take by mouth. 0 Active take 2 tablets by mouth once ramón ly potassium gluconate 550 (90 K) MG TABS tablet Take 550 mg by mouth daily 2 tabs po 0 Active Comment on above: Take by mouth. 1 ml promethazine hydrochloride 25 mg/ml injection (1 source) Phenothiazine Start: 09-01-2021 promethazine (PHENERGAN) injection 6.25 mg 72 hr scopolamine 0.0139 mg/hr transdermal system (2 sources) Anticholinergic Start: 09-01-2021 End: 09-04-2021 scopolamine (TRANSDERM-SCOP) 1 MG/3DAYS transdermal patch Start: 09-01-2021 scopolamine (T RANSDERM-SCOP) transdermal patch 1 patch simvastatin 20 mg oral tablet (13 sources) HMG-CoA Reductase Inhibitor Start: 09-07-2022 take 1 tablet by mouth every twenty-four hours Simvastatin 20 MG 1 tablet in the evening Orally Once a day August, Active 5 ml sodium chloride 9 mg/ml injection (6 sources) Start: 09-01-2021 0.9 % sodium chloride infusion Start: 09-01-2021 sodium chlorid e flush 0.9 % injection 5-40 mL thyroid (custodial) 60 mg oral tab let (20 sources) ARMOUR THYROID 6 0 mg tab Take 60 mg by mouth. 0 Active take 3 tablets by mo uth once daily, then take 2 tablets by mouth once daily [place] Thyroid 60 MG TAKE 3 TABLETS BY MOUTH DAILY WEDNESDAY , WEDNESDAY , WEDNESDAY AND WEDNESDAY . TAKE 2 TABLETS BY MOUTH DAILY WEDNESDAY , WEDNESDAY , AND WEDNESDAY for 90 Active take 1 tablet by rachid th every twenty-four hours [place] Thyroid 60 MG 1 tablet Orally Onc e a day for 90 days takes 180mg every other day 120 mg every other day Active take 2 tablets by mouth once ramón ly thyroid (ARMOUR) 60 MG tablet Take 60 mg by mouth daily 3 pills every other day, alternating with 2 pills 0 Active take 1 tablet by rachid th every twenty-four hours [place] Thyroid 180 MG 1 tablet Orally On ce a day Active Comment on above: Take [...] Orally daily for 5 days Jun, Not-Taking 1 ml HYDROmorphone hydrochloride 1 mg/ml cartridge (2 sources) Opioid Agonist Start: 09-01-2021 End: 09-01-2021 HYDROmorphone (DILAUDID) 1 MG/ML injection Start: 09-01-2021 HYDROmorphone (DILAUDID) injection 0.5 mg modified 24 [...] 500 mg by mouth daily with breakfast. phenazopyridine hydrochloride 100 mg oral tablet (2 sources) Start: 09-01-2021 End: 09-01-2021 phenazopyridine (PYRIDIUM) tablet 200 mg Start: 09-01-2021 End: 09-01-2021 phenazopyridine (PYRIDIUM) 1 00 MG tablet Problems Active Problems Problem Classification Problem Date Documented Date Episodic/Chronic Asthma (20 sources) Mild intermittent asthma; 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: [Mild intermittent asthma, uncomplicated] Onset: 0 Resolved: 2 Chronic Biliary tract disease (1 source) Postcholecystectomy syndrome Episodic Cancer of breast (1 source) Malignant neoplasm of female breast; 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: [Malignant neoplasm of breast (female), unspecified site] Onset: 5 Chronic Chronic obstructive pulmonary disease and bronchiectasis (13 sources) Acute exacerbation of chronic obstructive airways [...] Resolved: 0 Chronic Disorders of lipid metabolism (13 sources) Familial hypercholesterolemia; 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: [Hyperlipidemia, unspecified] Onset: 6 Chronic Diverticulosis and diverticulitis (2 sources) Diverticulitis of large intestine without perforation or abscess without bleeding; 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: [Diverticulitis of intestine, part unspecified, without perforation or abscess without bleeding] Onset: 8 Resolved: 0 Chronic Esophageal disorders (20 sources) Gastroesophageal reflux disease without esophagitis; 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: [Gastro-esophageal reflux disease without esophagitis] Onset: 2 Resolved: 2 Chronic Essential hypertension (13 sources) Essential (primary) hypertension; 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: [Unspecified essential [...] current use of drug therapy; 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: [Other half-way (current) drug therapy] Episodic Other diseases of veins and lymphatics (5 sources) Peripheral venous insufficiency; 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: [Venous insufficiency (chronic) (peripheral)] Episodic Other diseases of veins and lymphatics (1 source) Venous insufficiency (chronic) (peripheral) Episodic Other gastrointestinal disorders (15 sources) Irritable bowel syndrome with diarrhea; 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: [...] (BMI) 40.0-44.9, adult] Onset: 6 Chronic Other nutritional; endocrine; and metabolic disorders (2 sources) Hypercalcemia; 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: [Hypercalcemia] Chronic Other nutritional; endocrine; and metabolic disorders (2 sources) Hypercalcemia Chronic Other screening for suspected conditions (not mental disorders or infectious disease) (1 source) Abnormal findings on diagnostic imaging of other specified body structures; 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: [Abnormal findings on diagnostic imaging of other specified body structures] Chronic Other screening for suspected conditions (not mental disorders or infectious disease) (7 sources) Patient encounter status; 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: [Encounter for [...] [Sleep apnea, unspecified] Chronic Residual codes; unclassified (17 sources) Obstructive sleep apnea syndrome; 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: [Obstructive [...] elsewhere classified] Onset: 0 Chronic Thyroid disorders (19 sources) Hypothyroidism, unspecified; 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: [Autoimmune thyroiditis] Onset: [...] 38.0-38.9, adult] Onset: 6 Unclassified (1 source) Ebeqzwttmp-opyvnik-hznjv ssis, combined [DTP] [DtaP]; 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: [Bckxbwljpf-ptfszhd-ykqo ussis, combined [DTP] [DtaP]] Onset: 7 Unclassified [...] and of unspecified site] Onset: 12-09-2015 Episodic Cancer of breast (12 sources) History of malignant neoplasm of breast; 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: [Personal history of malignant neoplasm of breast] Onset: 03-31-2016 05-31-2018 Episodic Chronic ulcer of skin (1 source) [...] Resolved: 03-03-2022 Episodic Other aftercare (1 source) extermination inspector (current) use of aspirin; 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: [PENITENTIARY CURRENT USE OF ASPIRIN] Onset: 07-02-2021 Episodic [...] unspecified] Resolved: 02-16-2022 Chronic Residual codes; unclassified (10 sources) Family history of malignant neoplasm of breast in first degree relative; 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: [Family history of malignant neoplasm of breast] Onset: 05-31-2018 05-31-2018 Episodic Residual codes; unclassified (7 sources) Family history of malignant neoplasm of [...] Test Name Value Interpretation Reference Range Facility [facility] 09-13-2023 [facility] Telephone ([facility]) JESSICA LAO ([id number]) 1940 F Date Time Provider Department 09/13/23 DAMIÁN LAEXANDER During your visit today, we recorded the following information about you: [facility] 09/13/2023 9:14 AM Signed Patient called stating that her sister passed last week and they always had appointments with Damián together and she would like to discuss with you. Patient can be reached at [phone]. 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 Brittaney will no longer make drive to [place] for her care. I gave my condolences and if any assistance needed in future to contact me Allergies As of Date: 09/13/2023 Noted Allergy Reaction PENICILLINS 05/31/2018 1 - Mental Status Change 14 - Other: See Comments Comments: She felt like she was going to pass out Date Reviewed: 08/14/2022 Reviewed by: Damián Alexander APRN.SERVICE RIG OPERATOR - Fully Assessed Reason for Visit: Appointment [[id number]] Returning Patient's Call [[id number]] Cmt: Continued care closer to home Prescriptions as of 09/13/2023 - fluticasone-salmetero l (ADVAIR DISKUS) 100-50 mcg/dose inhaler Inhale 1 Puff as instructed twice daily. - ARMOUR THYROID 60 mg tab Take 60 mg by mouth. - aspirin, enteric coated (ASPIRIN, ENTERIC COATED) 81 mg EC tablet Take 81 mg by mouth once daily. - cranberry fruit extract (CRANBERRY EXTRACT ORAL) Take 600 mg by mouth. - dicyclomine (BENTYL) 10 mg capsule Take 10 mg by mouth before meals and at bedtime. - lisinopril (ZESTRIL, PRINIVIL) 20 mg tablet Take 20 mg by mouth once daily. - multivit,thx,calcium, iron,mins (MULTIVITAMIN AND MINERAL ORAL) Take by mouth. - esomeprazole (NEXIUM) 20 mg capsule Take 20 mg by mouth DAILY (6 AM). - Potassium 99 mg tab Take by mouth. - conjugated estrogens (PREMARIN) vaginal cream Use vaginally once each week. - montelukast (SINGULAIR) 10 mg tablet Take 10 mg by mouth daily at bedtime. - triamterene-hydrochlo rothiazide (MAXZIDE) 75-50 mg per tablet Take 1 tablet by mouth once daily. Problem List As Of Date 09/13/2023 Noted Resolved Personal history of breast cancer [Z85.3] 05/31/2018 Family history of breast cancer in sister [Z80.*05/31/2018 Family history of ovarian cancer [Z80.41] 05/31/2018 Encounter Status:Closed by DAMIÁN ALEXANDER on 09/13/23 [facility] Urinalysis - DIPSTICKon 09-0 Appearance (U) clear [employer] Other Bilirubin Ql (U) Negative Ulule Other Color (U) yellow [employer] Other Glucose Ql (U) Negative [employer] Other Hemoglobin Ql (U) Negative [employer] Other Ketones Ql (U) Negative [employer] Other Leukocyte esterase Test strip Ql (U) moderate [employer] Other Nitrite Ql (U) Negative [employer] Other pH (U) 7.0 [pH] [employer] Other Protein Ql (U) Negative [employer] Other Specific gravity (U) [Rel density] 1.000 [employer] Other Urobilinogen (U) [Mass/Vol] 0.5 mg/dL [employer] Other Urinalysis - DIPSTICK [employer] Other Urinalysis - DIPSTICKon 08-0 Appearance (U) clear [employer] Other Bilirubin Ql (U) Negative [employer]ule Other Color (U) yellow [employer] Other Glucose Ql (U) Negative [employer] Other Hemoglobin Ql (U) Negative [employer] Other Ketones Ql (U) Negative [employer] Other Leukocyte esterase Test strip Ql (U) trace [employer] Other Nitrite Ql (U) Negative [employer] Other pH (U) 7 [pH] [employer] Other Protein Ql (U) Negative [employer] Other Specific gravity (U) [Rel density] 1.000 [employer] Other Urobilinogen (U) [Mass/Vol] 0.2 mg/dL [employer] Other Urinalysis - DIPSTICK [employer] Other GLYCOHEMOGLOBIN A1Con 2021 ADA RECOMMENDATION SEE BELOW Normal [facility] Comment on above: Result Comment: ADA RECOMMENDED LIMIT 4.0 - 6.0 ADA THERAPEUTIC TARGET < 7.0 ACTION SUGGESTED > 7.0 Performed By: #### A NARF #### [facility] [address] [place] [address] Dr. Ann Newton Glucose [Mass/Vol] 123 mg/dL Normal [facility] Comment on above: Performed By: #### A NARF #### [facility] [address] [address] [address] Ann Newton HbA1c (Bld) [Mass fraction] 5.9 % Normal 4.5-6.2 [facility] Comment on above: Performed By: #### A NARF #### [facility] [address] [place] [address] Dr. Ann Newton NM STRESS/REST MULTIon 03-05 NM STRESS/REST MULTI Patient: JESSICA LAO Exam Date: 03/05/2022 : 1940 Gender:F Ordering : DR SIDNEY MOORE D.O. Admission #: [id number] Family : Order #: [id number] CLICK HERE TO VIEW EXAM RADIOLOGY REPORT [...] MD on 03/05/2022 at 14:42 Normal [facility] T3, TOTAL (TRIIODOTHYRONINE) on 03-03-2022 T3, TOTAL 154 ng/dL Normal 71-180 [facility] Comment on above: Performed By: #### A NARF #### [facility] [address] [address] [address] Ann Newton CBC AUTO DIFFon 03-02-2022 BASO # 0.0 103/ul Normal 0.0-0.1 [facility] Comment on above: Performed By: #### R F #### [facility] [address] [address] [address] Ann Newton Basophils/100 WBC (Bld) 0.4 % Normal 0.2-2.0 [facility] Comment on above: Performed By: #### R F #### [facility] [address] [place] [address] Dr. Ann Newton EO # 0.1 103/ul Normal 0.0-0.7 [facility] Comment on above: Performed By: #### R F #### [facility] [address] [place] [address] Dr. Ann Newton Eosinophils/100 WBC (Bld) 1.5 % Normal 0.9-7.0 [facility] Comment on above: Performed By: #### R F #### [facility] [address] [place] [address] Dr. Ann Newton Erythrocyte distribution width (RBC) [Ratio] 12.3 % Normal 11.0-15.0 [facility] Comment on above: Performed By: #### R F #### [facility] [address] [place] [address] Dr. Ann Newton Hematocrit (Bld) [Volume fraction] 36.9 % Normal 36.0-48.0 [facility] Comment on above: Performed By: #### R F #### [facility] [address] [place] [address] Dr. Ann Newton Hemoglobin (Bld) [Mass/Vol] 12.6 g/dL Normal 12.0-16.0 [facility] Comment on above: Performed By: #### R F #### [facility] [address] [place] [address] Dr. Ann Newton IG # 0.02 10e3/ul Normal 0.00-0.03 [facility] Comment on above: Performed By: #### R F #### [facility] [address] [place] [address] Dr. Ann Newton IG % 0.4 % Normal 0.0-0.5 [facility] Comment on above: Performed By: #### R F #### [facility] [address] [place] [address] Dr. Ann Newton LYMPH # 1.5 103/ul Normal 1.2-3.8 [facility] Comment on above: Performed By: #### R F #### [facility] [address] [place] [address] Dr. Ann Newton Lymphocytes/100 WBC (Bld) 27.9 % Normal 20.5-60.0 [facility] Comment on above: Performed By: #### R F #### [facility] [address] [place] [address] Dr. Ann Newton MANUAL DIFF REQ NO Normal [facility] Comment on above: Performed By: #### R F #### [facility] [address] [place] [address] Dr. Ann Newton MCH (RBC) [Entitic mass] 31.6 pg Normal 26.7-34.0 [facility] Comment on above: Performed By: #### R F #### [facility] [address] [place] [address] Dr. Ann Newton MCHC (RBC) [Mass/Vol] 34.1 g/dL Normal 29.9-35.2 [facility] Comment on above: Performed By: #### R F #### [facility] [address] [place] [address] Dr. Ann Newton MCV (RBC) [Entitic vol] 92.5 fL Normal 81.0-99.0 [facility] Comment on above: Performed By: #### R F #### [facility] [address] [place] [address] Dr. Ann Newton MONO # 0.3 103/ul Normal 0.3-0.8 [facility] Comment on above: Performed By: #### R F #### [facility] [address] [place] [address] Dr. Ann Newton Monocytes/100 WBC (Bld) 5.8 % Normal 1.7-12.0 [facility] Comment on above: Performed By: #### R F #### [facility] [address] [place] [address] Dr. Ann Newton NEUT # 3.5 103/ul Normal 1.4-6.5 [facility] Comment on above: Performed By: #### R F #### [facility] [address] [place] [address] Dr. Ann Newton Neutrophils/100 WBC (Bld) 64.0 % Normal 43.0-75.0 [facility] Comment on above: Performed By: #### R F #### [facility] [address] [address] [address] Ann Newton Platelet mean volume (Bld) [Entitic vol] 9.3 fL Critically low 9.5-13.5 [facility] Comment on above: Performed By: #### R F #### [facility] [address] [address] [address] Ann Newton PLT 221 103/ul Normal 150-450 [facility] Comment on above: Performed By: #### R F #### [facility] [address] [address] [address] Ann Newton RBC 3.99 106/ul Critically low 4.20-5.40 [facility] Comment on above: Performed By: #### R F #### [facility] [address] [place] [address] Dr. Ann Newton WBC 5.5 103/ul Normal 4.0-11.0 [facility] Comment on above: Performed By: #### R F #### [facility] [address] [place] [address] Dr. Ann Newton ECHOCARDIO M/2D COMPLETEon 1 05-02-2021 ECHOCARDIO M/2D COMPLETE Patient: JESSICA LAO Exam Date: 03/02/2022 : 1940 Gender:F Ordering : DR SIDNEY MOORE D.O. Admission #: [id number] Family : Order #: [id number] CLICK HERE TO VIEW EXAM ECHOCARDIOGRAM REPORT [...] Rae M.D. on 03/03/2022 at 15:32 Normal [facility] FREE T4on 03-02-2022 Free T4 [Mass/Vol] 0.80 ng/dL Normal 0.76-1.46 [facility] Comment on above: Performed By: #### F T4 #### [facility] [address] [place] [address] Dr. Ann Newton LIPID PROFILEon 03-02-2022 CHOL-HDL RATIO NORM SEE BELOW Normal [facility] Comment on above: Result Comment: 3.3 - 4.4 LOW RISK 4.4 - 7.1 AVERAGE RISK 7.1 - 11.0 MODERATE RISK >11.0 HIGH RISK Performed By: #### L IPID, TSH, CMP #### [facility] [address] [address] [address] Ann Newton Cholesterol [Mass/Vol] 132 mg/dL Normal <=200 [facility] Comment on above: Performed By: #### L IPID, TSH, CMP #### [facility] [address] [address] [address] Ann Newton Cholesterol in HDL [Mass/Vol] 41 mg/dL Normal 40-60 [facility] Comment on above: Performed By: #### L IPID, TSH, CMP #### [facility] [address] [address] [address] Ann Newton Cholesterol in LDL [Mass/Vol] 63.0 mg/dL Normal [facility] Comment on above: Performed By: #### L IPID, TSH, CMP #### [facility] [address] [address] [address] Ann Newton Cholesterol.total/C holesterol in HDL [Mass ratio] 3.2 {ratio} Normal [facility] Comment on above: Performed By: #### L IPID, TSH, CMP #### [facility] [address] [address] [address] Ann Newton HDL NORMAL > or = 60 mg/dl - LO W CARDIOVASCULAR RISK <40 mg/dl - HIGH CARDIOVASCULAR RISK Normal [facility] Comment on above: Performed By: #### L IPID, TSH, CMP #### [facility] [address] [address] [address] Ann Newton LDL CALC NORMAL SEE BELOW Normal [facility] Comment on above: Result Comment: <100 mg/dl OPTIMAL 100 - 129 mg/dl NEAR OR ABOVE OPTIMAL 130 - 159 mg/dl BORDERLINE HIGH 160 - 189 mg/dl HIGH >190 mg/dl VERY HIGH Performed By: #### L IPID, TSH, CMP #### [facility] [address] [address] [address] Ann Newton Triglyceride [Mass/Vol] 140 mg/dL Normal <=150 [facility] Comment on above: Performed By: #### L IPID, TSH, CMP #### [facility] [address] [address] [address] Ann Newton VLDL CALC 28.0 mg/dL Normal [facility] Comment on above: Performed By: #### L IPID, TSH, CMP #### [facility] [address] [address] [address] Ann Newton PROF 14(COMP METB)on 022 Albumin [Mass/Vol] 3.8 g/dL Normal 3.4-5.0 [facility] Comment on above: Performed By: #### L IPID, TSH, CMP #### [facility] [address] [address] [address] Ann Newton Albumin/Globulin [Mass ratio] 1.1 {ratio} Normal [facility] Comment on above: Performed By: #### L IPID, TSH, CMP #### [facility] [address] [address] [address] Ann Newton ALP [Catalytic activity/Vol] 43 U/L Critically low 46-116 [facility] Comment on above: Performed By: #### L IPID, TSH, CMP #### [facility] [address] [place] [address] Dr. Ann Newton ALT [Catalytic activity/Vol] 20 U/L Normal 14-59 [facility] Comment on above: Performed By: #### L IPID, TSH, CMP #### [facility] [address] [address] [address] Ann Newton Anion gap [Moles/Vol] 9.1 mmol/L Normal [facility] Comment on above: Performed By: #### L IPID, TSH, CMP #### [facility] [address] [place] [address] Dr. Ann Newton AST [Catalytic activity/Vol] 12 U/L Critically low 15-37 [facility] Comment on above: Performed By: #### L IPID, TSH, CMP #### [facility] [address] [address] [address] Ann Newton Bilirubin [Mass/Vol] 0.4 mg/dL Normal 0.2-1.0 [facility] Comment on above: Performed By: #### L IPID, TSH, CMP #### [facility] [address] [place] [address] Dr. Ann Newton Calcium [Mass/Vol] 9.8 mg/dL Normal 8.5-10.1 [facility] Comment on above: Performed By: #### L IPID, TSH, CMP #### [facility] [address] [address] [address] Ann Newton Chloride [Moles/Vol] 100 mmol/L Normal 98-107 [facility] Comment on above: Performed By: #### L IPID, TSH, CMP #### [facility] [address] [place] [address] Dr. Ann Newton CO2 [Moles/Vol] 29.5 mmol/L Normal 21.0-32.0 [facility] Comment on above: Performed By: #### L IPID, TSH, CMP #### [facility] [address] [address] [address] Ann Newton Creatinine [Mass/Vol] 0.80 mg/dL Normal 0.55-1.02 [facility] Comment on above: Performed By: #### L IPID, TSH, CMP #### [facility] [address] [place] [address] Dr. Ann Newton EGFR-AF ECUADOREAN >60 Normal >=60 [facility] Comment on above: Performed By: #### L IPID, TSH, CMP #### [facility] [address] [place] [address] Dr. Ann Newton EGFR-NON AF ECUADOREAN >60 Normal >=60 [facility] Comment on above: Performed By: #### L IPID, TSH, CMP #### [facility] [address] [place] [address] Dr. Ann Newton Globulin (S) [Mass/Vol] 3.6 g/dL Normal [facility] Comment on above: Performed By: #### L IPID, TSH, CMP #### [facility] [address] [place] [address] Dr. Ann Newton Glucose [Mass/Vol] 130 mg/dL Critically high 74-106 T [facility] Comment on above: Performed By: #### L IPID, TSH, CMP #### [facility] [address] [place] [address] Dr. nAn Newton Potassium [Moles/Vol] 4.6 mmol/L Normal 3.5-5.1 [facility] Comment on above: Performed By: #### L IPID, TSH, CMP #### [facility] [address] [place] [address] Dr. Ann Newton Protein [Mass/Vol] 7.4 g/dL Normal 6.4-8.2 [facility] Comment on above: Performed By: #### L IPID, TSH, CMP #### [facility] [address] [place] [address] Dr. Ann Newton Sodium [Moles/Vol] 134 mmol/L Critically low 136-145 [facility] Comment on above: Performed By: #### L IPID, TSH, CMP #### [facility] [address] [place] [address] Dr. Ann Newton Urea nitrogen [Mass/Vol] 19.0 mg/dL Critically high 7.0-18.0 [facility] Comment on above: Performed By: #### L IPID, TSH, CMP #### [facility] [address] [place] [address] Dr. Ann Newton Urea nitrogen/Creatinine [Mass ratio] 23.8 mg/mg Normal [facility] Comment on above: Performed By: #### L IPID, TSH, CMP #### [facility] [address] [place] [address] Dr. Ann Newton TSHon 03-02-2022 TSH 0.385 uIU/mL Normal 0.358-3.740 [facility] Comment on above: Performed By: #### L IPID, TSH, CMP #### [facility] [address] [place] [address] Dr. Ann Newton XR DEXA BONE DENSITYon [...] FRANCHESCA NINO Date: 2022-03-02 17:07 Normal [facility] OPERATIVE REPORTon OPERATIVE REPORT [address] [address] OPERATIVE REPORT PATIENT NAME: JESSICA LAO : 1940 MED REC NO: [id number] ROOM: ACCOUNT NO: [id number] ADMIT DATE: 01/15/2022 PROVIDER: Jus Blank DATE OF PROCEDURE: 01/15/2022 INDICATIONS FOR SURGERY: [...] fashion [facility]. We put her in positioning [...] urge incontinence in the near future. JUS ABHAY /[id number] Doc#: [id number] CC: Jus Little [facility] CYCLIC CITRULLINATED PEPTIDE AB (CCP)on 10-30-2021 CCP Antibodies IgG/IgA 10 units Normal 0-19 [facility] Comment on above: Result Comment: Nega tive <20 Weak positive 20 - 39 Moderate positive 40 - 59 Strong positive >59 Performed By: #### A NARF #### [facility] [address] [place] [address] Dr. Ann Newton FLORENCIO EIA W/REFLEX 5 BIOMARKER Son 10-29-2021 FLORENCIO Direct Negative Normal Negative [facility] Comment on above: Performed By: #### A NARF #### [facility] [address] [place] [address] Dr. Ann Newton C-REACTIVE PROTEINS (HS)on 0 10-29-2021 C-Reactive Protein, Cardiac 3.46 mg/L Critically high 0.00-3.00 [facility] Comment on above: Result Comment: Rela tive Risk for Future Cardiovascular Event Low <1.00 Average 1.00 - 3.00 High >3.00 Performed By: #### C RPHS #### [facility] [address] [address] [address] Ann Newton RHEUMATOID FACTORon 10-30-19 22 RA Latex Turbid. <10.0 Normal <14.0 [facility] Comment on above: Performed By: #### R F #### [facility] [address] [place] [address] Dr. Ann Newton XR HAND GREG 2 [...] by: JEANETTE PARDO Date: 2021-10-28 14:27 Normal [facility] Hemoglobin and Hematocriton 09-01-2021 Hematocrit (Bld) [Volume fraction] 38.8 % 36 - 46 % [facility] Hemoglobin.gastroin testinal spec 1 Ql (Stl) 13.1 g/dL 12.0 - 16.0 g/dL [facility] Hgb/Hcton 09-01-2021 Hematocrit (Bld) [Volume fraction] 38.8 % Normal 36-46 [facility] Comment on above: Performed By: #### H H #### [address] [address] Hoe Worker: Corbin Stack MD Hemoglobin (Bld) [Mass/Vol] 13.1 g/dL Normal 12.0-16.0 [facility] Comment on above: Performed By: #### H H #### [address] [address] Hoe Worker: Corbin Stack MD OPERATIVE REPORTon 05-09-202 2 OPERATIVE REPORT [address] [address] OPERATIVE REPORT PATIENT NAME: JESSICA LAO : 1940 MED REC NO: [id number] ROOM: ACCOUNT NO: [id number] ADMIT DATE: 09/01/2021 PROVIDER: Jus Blank DATE [...] sterile fashion in dorsal lithotomy position in [facility], confirmed to be neutrally positioned by myself. [...] for packing. Next, cystoscopy was done with 17-Ugandan 30-degree cystourethroscope. Ureters were patent with Pyridium-stained [...] fashion. The (more content not included)... Normal [facility] Surgical Pathologyon Surgical Pathology (NOTE) -- Diagnosis -- A. VAGINAL MUCOSA: -SQUAMOUS MUCOSA WITH NO PATHOLOGIC DIAGNOSIS B. UTERUS: -CHRONIC ENDOCERVICITIS -ATROPHIC ENDOMETRIUM -INCIDENTAL SMALL LEIOMYOMA Reynold Mcdonnell D.O. Electronically Signed Out lj/09/03/2021 Clinical Information Pre-op Diagnosis: CYSTOCELE, UTERINE PROLAPSE, URINARY INCONTINENCE Operative Findings: VAGINAL MUCOSA; UTERUS AND CERVIX Operation Performed: HYSTERECTOMY VAGINAL CYSTOCELE REPAIR, CYSTO BULKAMID INJECTION Source of Specimen A: VAGINAL MUCOSA B: UTERUS AND CERVIX Gross Description A. JESSICA LAO VAGINAL MUCOSA Fragments of wrinkled pink-farah tissue, 8.0 x 3.8 x 1.5 cm in aggregate. Sectioning reveals no masses. Collision Worker sections 1cs. B. JESSICA LAO, UTERUS AND CERVIX Uterus with attached cervix. Dimensions: Uterus and cervix 7.9 x 4.2 x 3.5 cm. Weight: Uterus and cervix 35 grams. Serosa: Damon-farah and disrupted posteriorly. Cervix: 3.9 x 3.2 [...] SURGICAL PATHOLOGY CONSULTATION Patient Name: JESSICA LAO [facility] Rec: [id number] Path Number: [id number] [facility] ANATOMIC PATHOLOGY [address] [place] [phone] Normal [facility] Comment on above: Performed By: #### P PPVS #### [facility] [address] [place], [place] [id number] Hoe Worker: Kevin Rivera MD TYPE AND SCREENon 09-01-2021 ABO/Rh Positive [facility] Arm Band [facility] [place] [id number] [facility] Date 09/04/2021,235 [facility] Type + Screenon 09-01-2021 Type + Screen Sample Expiration 09/04/2021,235 Arm Band Number BE [id number] ABO/Rh(D) AB POSITIVE Antibody Screen NEGATIVE Normal [facility] Comment on above: Performed By: #### T YS #### [facility] [address] [place] [address] Hoe Worker: Corbin Stack MD Covid-19 PCR (CVDTB)on SARS-CoV-2 (COVID-19) RNA DAVID+probe Ql (Unsp spec) Not detected Normal NOT DETECTED [facility] Comment on above: Result Comment: This test is not yet approved or cleared by the [place] FDA. When there are no FDA-approved or cleared tests available, and other criteria are met, FDA can make tests available under an emergency access mechanism called an Emergency Use Authorization (EUA). The EUA for this test is supported by the [employer] [place] [employer] of Health and Human Service's (HHS's) declaration [...] consistent with SARS-CoV-2. Performed By: #### C VDTBH #### [facility] [address] [address] [address] Ann Newton CBC AUTO DIFFon 08-14-2021 BASO # 0.0 103/ul Normal 0.0-0.1 [facility] Comment on above: Performed By: #### C BC #### [facility] [address] [place] [address] Dr. Ann Newton Basophils/100 WBC (Bld) 0.3 % Normal 0.2-2.0 [facility] Comment on above: Performed By: #### C BC #### [facility] [address] [place] [address] Dr. Ann Newton EO # 0.1 103/ul Normal 0.0-0.7 [facility] Comment on above: Performed By: #### C BC #### [facility] [address] [place] [address] Dr. Ann Newton Eosinophils/100 WBC (Bld) 1.5 % Normal 0.9-7.0 [facility] Comment on above: Performed By: #### C BC #### [facility] [address] [place] [address] Dr. Ann Newton Erythrocyte distribution width (RBC) [Ratio] 12.1 % Normal 11.0-15.0 [facility] Comment on above: Performed By: #### C BC #### [facility] [address] [place] [address] Dr. Ann Newton Hematocrit (Bld) [Volume fraction] 37.9 % Normal 36.0-48.0 [facility] Comment on above: Performed By: #### C BC #### [facility] [address] [place] [address] Dr. Ann Newton Hemoglobin (Bld) [Mass/Vol] 12.7 g/dL Normal 12.0-16.0 [facility] Comment on above: Performed By: #### C BC #### [facility] [address] [place] [address] Dr. Ann Newton IG # 0.05 10e3/ul Critically high 0.00-0.03 [facility] Comment on above: Performed By: #### C BC #### [facility] [address] [address] [address] Ann Newton IG % 0.8 % Critically high 0.0-0.5 [facility] Comment on above: Performed By: #### C BC #### [facility] [address] [place] [address] Dr. Ann Newton LYMPH # 1.8 103/ul Normal 1.2-3.8 [facility] Comment on above: Performed By: #### C BC #### [facility] [address] [place] [address] Dr. Ann Newton Lymphocytes/100 WBC (Bld) 27.3 % Normal 20.5-60.0 [facility] Comment on above: Performed By: #### C BC #### [facility] [address] [place] [address] Dr. Ann Newton MANUAL DIFF REQ NO Normal [facility] Comment on above: Performed By: #### C BC #### [facility] [address] [place] [address] Dr. Ann Newton MCH (RBC) [Entitic mass] 31.8 pg Normal 26.7-34.0 [facility] Comment on above: Performed By: #### C BC #### [facility] [address] [place] [address] Dr. Ann Newton MCHC (RBC) [Mass/Vol] 33.5 g/dL Normal 29.9-35.2 [facility] Comment on above: Performed By: #### C BC #### [facility] [address] [place] [address] Dr. Ann Newton MCV (RBC) [Entitic vol] 94.8 fL Normal 81.0-99.0 [facility] Comment on above: Performed By: #### C BC #### [facility] [address] [place] [address] Dr. Ann Newton MONO # 0.4 103/ul Normal 0.3-0.8 [facility] Comment on above: Performed By: #### C BC #### [facility] [address] [place] [address] Dr. Ann Newton Monocytes/100 WBC (Bld) 6.2 % Normal 1.7-12.0 [facility] Comment on above: Performed By: #### C BC #### [facility] [address] [place] [address] Dr. Ann Newton NEUT # 4.2 103/ul Normal 1.4-6.5 [facility] Comment on above: Performed By: #### C BC #### [facility] [address] [place] [address] Dr. Ann Newton Neutrophils/100 WBC (Bld) 63.9 % Normal 43.0-75.0 [facility] Comment on above: Performed By: #### C BC #### [facility] [address] [place] [address] Dr. Ann Newton Platelet mean volume (Bld) [Entitic vol] 9.3 fL Critically low 9.5-13.5 [facility] Comment on above: Performed By: #### C BC #### [facility] [address] [place] [address] Dr. Ann Newton PLT 215 103/ul Normal 150-450 [facility] Comment on above: Performed By: #### C BC #### [facility] [address] [place] [address] Dr. Ann Newton RBC 4.00 106/ul Critically low 4.20-5.40 [facility] Comment on above: Performed By: #### C BC #### [facility] [address] [place] [address] Dr. Ann Newton WBC 6.5 103/ul Normal 4.0-11.0 [facility] Comment on above: Performed By: #### C BC #### [facility] [address] [place] [address] Dr. Ann Newton MRSA NARES #1on 08-14-2021 MRSA NARES #1 Culture Observations : NO GROWTH OF MRSA AT 48 HOURS. Normal [facility] Comment on above: Performed By: #### A NARF #### [facility] [address] [address] [address] Ann Newton PROF CHEM 8 (BAS METB)on Anion gap [Moles/Vol] 11.0 mmol/L Normal [facility] Comment on above: Performed By: #### B MP #### [facility] [address] [address] [address] Ann Newton Calcium [Mass/Vol] 9.5 mg/dL Normal 8.5-10.1 [facility] Comment on above: Performed By: #### B MP #### [facility] [address] [address] [address] Ann Newton Chloride [Moles/Vol] 99 mmol/L Normal 98-107 [facility] Comment on above: Performed By: #### B MP #### [facility] [address] [place] [address] Dr. Ann Newton CO2 [Moles/Vol] 30.6 mmol/L Critically high 22.0-30.0 [facility] Comment on above: Performed By: #### B MP #### [facility] [address] [place] [address] Dr. Ann Newton Creatinine [Mass/Vol] 0.75 mg/dL Normal 0.52-1.04 [facility] Comment on above: Performed By: #### B MP #### [facility] [address] [place] [address] Dr. Ann Newton EGFR-AF ECUADOREAN >60 Normal >=60 [facility] Comment on above: Performed By: #### B MP #### [facility] [address] [place] [address] Dr. Ann Newton EGFR-NON AF ECUADOREAN >60 Normal >=60 [facility] Comment on above: Performed By: #### B MP #### [facility] [address] [place] [address] Dr. Ann Newton Glucose [Mass/Vol] 105 mg/dL Normal 74-106 [facility] Comment on above: Performed By: #### B MP #### [facility] [address] [place] [address] Dr. Ann Newton Potassium [Moles/Vol] 4.6 mmol/L Normal 3.4-5.0 [facility] Comment on above: Performed By: #### B MP #### [facility] [address] [address] [address] Ann Newton Sodium [Moles/Vol] 136 mmol/L Critically low 137-145 Th e [facility] Comment on above: Performed By: #### B MP #### [facility] [address] [address] [address] Ann Newton Urea nitrogen [Mass/Vol] 16.0 mg/dL Normal 7.0-18.0 [facility] Comment on above: Performed By: #### B MP #### [facility] [address] [address] [address] Ann Newton Urea nitrogen/Creatinine [Mass ratio] 21.3 mg/mg Normal [facility] Comment on above: Performed By: #### B MP #### [facility] [address] [address] [address] Ann Newton Ambulatory Visit Summaryon 0 07-04-2021 Ambulatory Visit Summary CONI JESSICA Kristine :1940 Visit Date:07/04/2021 Ambulatory Visit Instructions Your Diagnosis Lipoma of back Your Care Team Attending Physician - AAKASH [...] 99 mg oral tablet) simvastatin thyroid desiccated ([place] Thyroid 60 mg Tab) Procedures Performed Excision [...] Following Appointments Follow Up with AAKASH FISH, BEATRIZ Gonzalez When: Only if needed Where: [address] [place] [address]- Medications What How Much When [...] if questions or concerns Unchanged thyroid desiccated ([place] Thyroid 60 mg Tab) alternate 3 tabs [...] lipoprotein ratio Hypertension Hypothyroidism Spinal stenosis Normal [facility] General Surgery Office/Clini c Noteon 07-04-2021 General [...] Follow-up With When Contact Information AAKASH FISH, Escobar Sosa, BEATRIZ Only if needed [address] [place] [address]- Additional Instructions: Problem List/Past Medical [...] mcg-50 mcg Powder, 1 inh, Inhalation, BID [place] Thyroid 60 mg Tab aspirin 81 mg [...] SARS-CoV-2 (COVID-19) Ad26 vaccine 05/31/2020 Recorded Normal [facility] Comment on above: Result Comment: Elec tronically Signed By: AAKASH FISH, Escobar Whiting\Date and Time Signed: 07/04/21 13:47 EST Pathology Noteon 06-30-2021 Pathology Note [id number] .[id number]:127 Normal [facility] Operative Reporton Operative Report [id number] .[id number]:127 Normal [facility] Consent for Procedure/Surger yon 06-09-2021 Consent for Procedure/Surgery [id number] .[id number]:127 Normal [facility] Immunization Recordson 06-09 Immunization Records [id number] .[id number]:127 Normal [facility] Ambulatory Visit Summaryon 0 06-06-2021 Ambulatory [...] 99 mg oral tablet) simvastatin thyroid desiccated ([place] Thyroid 60 mg Tab) Procedures Performed Cystourethroscopy [...] if questions or concerns Unchanged thyroid desiccated ([place] Thyroid 60 mg Tab) alternate 3 tabs [...] lipoprotein ratio Hypertension Hypothyroidism Spinal stenosis Normal [facility] Physician Referralon 022 Physician Referral [id number] .[id number]:127 Normal [facility] US CHESTon 05-21-2021 US CHEST EXAM: US [...] by: JEANETTE PARDO Date: 2021-05-21 10:33 Normal [facility] Vital Signs Date Time Vital Sign Value Performing Clinician Facility 02-12-2023 09:00-0400 Body height 162.56 cm [facility] Other [facility] Other 02-12-2023 09:00-0400 Body mass index (BMI) [Ratio] 33.98 kg/m2 [facility] Other [facility] Other 02-12-2023 09:00-0400 Body weight 89.81 kg [facility] Other [facility] Other 02-12-2023 09:00-0400 Diastolic blood pressure 74 mm[Hg] [facility] Other [facility] Other 02-12-2023 09:00-0400 Respiratory rate 12 /min [facility] Other [facility] Other 02-12-2023 09:00-0400 Systolic blood pressure 132 mm[Hg] [facility] Other [facility] Other 12-29-2022 15:00-0400 Body height 162.56 cm [facility] Other [facility] Other 12-29-2022 15:00-0400 Body mass index (BMI) [Ratio] 33.67 kg/m2 [facility] Other [facility] Other 12-29-2022 15:00-0400 Body weight 89 kg Sidney Ball Other [facility] Other 12-29-2022 15:00-0400 Diastolic blood pressure 79 mm[Hg] Sidney Ball Other [facility] Other 12-29-2022 15:00-0400 Respiratory rate 12 /min Sidney Ball Other [facility] Other 12-29-2022 15:00-0400 Systolic blood pressure 134 mm[Hg] Sidney Ball Other [facility] Other 11-25-2022 11:30-0400 Body height 162.56 cm Sidney Ball Other [facility] Other 11-25-2022 11:30-0400 Body mass index (BMI) [Ratio] 34.12 kg/m2 Sidney Ball Other [facility] Other 11-25-2022 11:30-0400 Body weight 90.18 kg Sidney Ball Other [facility] Other 11-25-2022 11:30-0400 Diastolic blood pressure 79 mm[Hg] Sidney Ball Other [facility] Other 11-25-2022 11:30-0400 Respiratory rate 12 /min Sidney Ball Other [facility] Other 11-25-2022 11:30-0400 Systolic blood pressure 135 mm[Hg] Sidney Ball Other [facility] Other 08-14-2022 10:59-0400 Body weight 88.91 kg Damián Alexander APRN.[facility] Work Phone: [facility] 07-20-2022 12:45-0400 Body height 162.56 cm Brown [facility] Other [facility] Other 07-20-2022 12:45-0400 Body mass index (BMI) [Ratio] 34.15 kg/m2 [facility] Other [facility] Other 07-20-2022 12:45-0400 Body temperature 96.9 [degF] Brown Bush Other [facility] Other 07-20-2022 12:45-0400 Body weight 90.27 kg Brown Bush Other [facility] Other 07-20-2022 12:45-0400 Diastolic blood pressure 68 mm[Hg] Brown Bush Other [facility] Other 07-20-2022 12:45-0400 Respiratory rate 20 /min Brown Bush Other [facility] Other 07-20-2022 12:45-0400 SaO2% (BldA) [Mass fraction] 97 % Brown Bush Other [facility] Other 07-20-2022 12:45-0400 Systolic blood pressure 124 mm[Hg] Brown Bush Other [facility] Other 07-09-2022 12:15-0400 Body height 162.56 cm Sidney Ball Other [facility] Other 07-09-2022 12:15-0400 Body mass index (BMI) [Ratio] 34.48 kg/m2 Sidney Ball Other [facility] Other 07-09-2022 12:15-0400 Body weight 91.13 kg Sidney Ball Other [facility] Other 07-09-2022 12:15-0400 Diastolic blood pressure 82 mm[Hg] Sidney Ball Other [facility] Other 07-09-2022 12:15-0400 Respiratory rate 16 /min Sidney Ball Other [facility] Other 07-09-2022 12:15-0400 Systolic blood pressure 132 mm[Hg] Sidney Ball Other [facility] Other 01-15-2022 13:15-0400 Diastolic blood pressure 68 mm[Hg] Jus Blank DO Work Phone: [employer] [facility] 01-15-2022 13:15-0400 Respiratory rate 73 /min Jus Blank DO Work Phone: [facility] 01-15-2022 13:15-0400 SaO2% (BldA) [Mass fraction] 98 % Jus Blank DO Work Phone: [facility] 01-15-2022 13:15-0400 Systolic blood pressure 162 mm[Hg] Jus Blank DO Work Phone: [facility] 01-15-2022 13:09-0400 Body temperature 98.6 [degF] Jus Blank DO Work Phone: [facility] 01-15-2022 13:09-0400 Heart rate 87 /min Jus Blank DO Work Phone: [facility] 01-15-2022 11:48-0400 Body height 149.9 cm Jus Blank DO Work Phone: [facility] 01-15-2022 11:48-0400 Body mass index (BMI) [Ratio] 43.42 kg/m2 Jus Blank DO Work Phone: [facility] 01-15-2022 11:48-0400 Body weight 97.52 kg Jus Blank DO Work Phone: [facility] 09-01-2021 11:00-0400 Heart rate 55 /min Jus Blank DO Work Phone: [employer] 09-01-2021 11:00-0400 Respiratory rate 20 /min Jus Blank DO Work Phone: [employer] 09-01-2021 11:00-0400 SaO2% (BldA) [Mass fraction] 94 % Jus Blank DO Work Phone: [employer] 09-01-2021 10:45-0400 Diastolic blood pressure 80 mm[Hg] Jus Blank DO Work Phone: [employer] 09-01-2021 10:45-0400 Systolic blood pressure 139 mm[Hg] Jus Blank DO Work Phone: [employer] 09-01-2021 09:06-0400 Body temperature 96.69 [degF] Jus Blank DO Work Phone: [employer] 09-01-2021 06:18-0400 Body height 149.9 cm Jus Blank DO Work Phone: [employer] 09-01-2021 06:18-0400 Body mass index (BMI) [Ratio] 41.81 kg/m2 Jus Blank DO Work Phone: [employer] 09-01-2021 06:18-0400 Body weight 93.89 kg Jus Blank DO Work Phone: [employer] 07-21-2021 12:45-0400 Body height 162.56 cm Brown Bush Other [facility] Other 07-21-2021 12:45-0400 Body mass index (BMI) [Ratio] 35.53 kg/m2 Brown Easleyban Other [facility] Other 07-21-2021 12:45-0400 Body temperature 97.4 [degF] Brown Easleyban Other [facility] Other 07-21-2021 12:45-0400 Body weight 93.9 kg Brown Easleyban Other [facility] Other 07-21-2021 12:45-0400 Diastolic blood pressure 74 mm[Hg] Brown Eas[facility]ban Other [facility] Other 07-21-2021 12:45-0400 Respiratory rate 20 /min Brown Easleyban Other [facility] Other 07-21-2021 12:45-0400 SaO2% (BldA) [Mass fraction] 95 % Brown Bush Other [facility] Other 07-21-2021 12:45-0400 Systolic blood pressure 140 mm[Hg] Brown Easleyban Other [facility] Other 01-21-2021 12:30-0400 Body height 162.56 cm Brown E[facility] Other [facility] Other 01-21-2021 12:30-0400 Body mass index (BMI) [Ratio] 35.18 kg/m2 [facility] Other [facility] Other 01-21-2021 12:30-0400 Body temperature 97.1 [degF] Brown [facility] Other [facility] Other 01-21-2021 12:30-0400 Body weight 92.99 kg Brown Bush Other [facility] Other 01-21-2021 12:30-0400 Diastolic blood pressure 74 mm[Hg] [facility] Other [facility] Other 01-21-2021 12:30-0400 Respiratory rate 20 /min Brown [facility] Other [facility] Other 01-21-2021 12:30-0400 SaO2% (BldA) [Mass fraction] 96 % [facility] Other [facility] Other 01-21-2021 12:30-0400 Systolic blood pressure 128 mm[Hg] [facility] Other [facility] Other Encounters Encounter Date Encounter Type Care Provider Facility Start: 09-13-2023 Telephone encounter Damián Alexander APRN.SERVICE RIG OPERATOR Work Phone: [facility] Comment on above: Appointment; Returni ng Patient's Call (Continued care closer to home) Start: 07-12-2023 End: 07-12-2023 ambulatory CLIFFORD MARTELL Not Available Start: 06-04-2023 End: 06-04-2023 ambulatory Sidney Moore Other [facility] Other Start: 06-04-2023 Telephone encounter [facility] Start: 04-14-2023 End: 04-14-2023 ambulatory Maximus Birch Other [facility] Other Start: 04-14-2023 Telephone encounter Maximus velasquez [facility] Start: 03-30-2023 End: 03-30-2023 ambulatory MARCIE BELLAMY Not Available Start: 03-03-2023 End: 03-03-2023 ambulatory Sidney Moore Other [facility] Other Start: 03-03-2023 Telephone encounter Sidney Moore [facility] Start: 02-12-2023 End: 02-12-2023 ambulatory Sidney Moore Other [facility] Other Start: 02-12-2023 Patient encounter procedure Sidney Moore [facility] Start: 12-29-2022 End: 12-29-2022 ambulatory Sidney Moore Other [facility] Other Start: 12-29-2022 Office outpatient vi sit 15 minutes Sidney Moore [facility] Start: 11-25-2022 End: 11-25-2022 ambulatory Sidney Moore Other [facility] Other Start: 11-25-2022 Office outpatient vi sit 25 minutes Sidney Moore [facility] Start: 11-20-2022 End: 11-20-2022 ambulatory Sidney Moore Other [facility] Other Start: 11-20-2022 Telephone encounter Sidney Moore [facility] Start: 11-12-2022 End: 11-12-2022 ambulatory Sidney Moore Other [facility] Other Start: 11-12-2022 Telephone encounter Sidney Moore [facility] Start: 11-10-2022 End: 11-10-2022 ambulatory Sidney Moore Other [facility] Other Start: 11-10-2022 Telephone encounter Sidney Moore [facility] Start: 09-07-2022 End: 09-07-2022 ambulatory Sidney Moore Other [facility] Other Start: 09-07-2022 Telephone encounter Sidney Moore [facility] Start: 08-14-2022 Documentation procedure Mammog lizeth Coordinator [facility] Start: 08-14-2022 Letter encounter Mammography Coordinator [facility] Start: 08-14-2022 End: 08-14-2022 Patient encounter procedure Damián Alexander APRN.SERVICE RIG OPERATOR Work Phone: [facility] Comment on above: Fibrocystic breast c hanges, left (Primary Dx); Personal history of breast cancer; Family history of breast cancer in sister; Encounter for screening mammogram for breast cancer Start: 08-04-2022 Orders Only Damián cee APRN.SERVICE RIG OPERATOR Work Phone: [facility] Comment on above: Family history of br east cancer in sister (Primary Dx); Encounter for screening mammogram for breast cancer Start: 07-20-2022 End: 07-20-2022 ambulatory Brown Bush Other [facility] Other Start: 07-20-2022 Office outpatient vi sit 15 minutes Brown Bush [facility] Start: 07-09-2022 End: 07-09-2022 ambulatory Sidney Moore Other [facility] Other Start: 07-09-2022 Office outpatient vi sit 15 minutes [facility] Start: 03-05-2022 End: 03-06-[address] SIDNEY MOORE Facility:[facility] Start: 03-03-2022 End: 03-03-2022 Encounter for other preprocedural examination Sidney Moore Other [facility] Other Start: 03-03-2022 End: 03-03-2022 Preoperative cardiovascular examination Sidney Moore Other [facility] Other Start: 03-02-2022 End: 03-03-[address] SIDNEY MOORE Facility:[facility] Start: 02-10-2022 Adult health examination Jose Moore Other [facility] Other Start: 01-15-2022 End: 01-15-2022 ambulatory JUS BLANK [facility] Start: 01-15-2022 End: 01-15-2022 Subsequent hospital visit by physician Jus Blank DO Work Phone: [facility] [place] Start: 10-28-2021 End: 10-29-[address] SIDNEY MOORE Facility:[facility] Start: 09-02-2021 Encounter for preprocedural laboratory examination JUS PRUITTMYRIAM [facility] Start: 09-01-2021 End: 09-01-2021 ambulatory JUS BLANK [facility] Start: 09-01-2021 End: 09-01-2021 Subsequent hospital visit by physician Jus Blank DO Work Phone: [facility] [place] Comment on above: Post-op pain (Primar y Dx) Start: 08-29-2021 End: 08-30-2021 ambulatory JUS BLANK Facility:[facility] Start: 08-29-2021 End: 08-30-2021 Encounter for preprocedural laboratory examination JUS BLANK Facility:[facility] Start: 08-18-2021 Encounter for preprocedural cardiovascular examination JUS PRUITTMYRIAM [facility] Start: 08-18-2021 Encounter for preprocedural laboratory examination JUS PRUITTMYRIAM [facility] Start: 08-14-2021 End: 08-15-2021 ambulatory JUS BLANK Facility:[facility] Start: 08-14-2021 End: 08-15-2021 Encounter for preprocedural cardiovascular examination JUS BLANK Facility:[facility] Start: 07-22-2021 Documentation procedure Mammog lizeth Coordinator [facility] Start: 07-22-2021 Letter encounter Mammography Coordinator [facility] Start: 07-22-2021 End: 07-22-2021 Patient encounter procedure Damián Alexander APRN.SERVICE RIG OPERATOR Work Phone: [facility] Comment on above: Fibrocystic breast c hanges, left (Primary Dx); Personal history of breast cancer; Family history of breast cancer in sister; Encounter for screening mammogram for breast cancer Start: 07-21-2021 End: 07-21-2021 ambulatory Brown Bush Other [facility] Other Start: 07-21-2021 Office outpatient vi sit 25 minutes Kamal Chaban [facility] Start: 07-16-2021 Orders Only Damián Rios jaye BALLARDSERVICE RIG OPERATOR Work Phone: [facility] Comment on above: Encounter for screen ing mammogram for breast cancer (Primary Dx); Fibrocystic breast changes, left Start: 06-25-2021 End: 06-25-[address] ESCOBAR VICTORIA Facility:[facility] Start: 05-21-2021 End: 05-22-[address] SDINEY MOORE Facility:[facility] Start: 01-21-2021 Office outpatient vi sit 15 minutes Kamal Chaban [facility] Start: 02-14-2019 Gynecological examination normal Sidney Moore Other [facility] Other Procedures Date Procedure Procedure Detail Performing Clinician Start: 09-01-2021 Blood count hemoglobin Cici Camshonnao Odell DO Work Phone: Start: 09-01-2021 Antibody screen Jus Blank DO Work Phone: Start: 09-01-2021 Blood typing serologic abo Jus Blank DO Work Phone: Start: 06-25-2017 Screening for osteoporosis Sidney Moore Other Plan of Treatment Date Care Activity Detail Author Start: 09-01-2026 Urine microalbumin profile DTaP,Tdap,Td Vaccine (2 - Td or Tdap) [facility] Start: 12-26-2023 Influenza vaccination Influenz a Vaccine (Season Ended) [facility] Start: 04-26-2023 Advance Directive Discussion Advance Directive Discussion [facility] Start: 04-26-2023 Behavioral Health Screening Behavioral Health Screening [facility] Start: 12-25-2022 Covid-19 Vaccine ( season) Covid-19 Vaccine ( season) [facility] Start: 12-25-2022 Influenza vaccination INFLUENZ A (Season Ended) [facility] Start: 04-26-2022 ADVANCE DIRECTIVE DISCUSSION ADVANCE DIRECTIVE DISCUSSION [facility] Start: 04-26-2022 DEPRESSION ASSESSMENT DEPRESSION ASS ESSMENT [facility] Start: 01-23-2022 COVID-19 VACCINE (5 - Booster for Moderna series) COVID-19 VACCINE (5 - Booster for Moderna series) [facility] Start: 01-15-2022 End: 01-15-2022 Ndsc njx implt matrl urt&/bldr nck URETHRAL IMPLANT INJECTION Urinary incontinence, unspecified type 01/15/2022 12:42 PM EDT [facility] Start: 12-25-2021 Influenza vaccination [facility] Start: 09-01-2021 End: 09-01-2021 Anterior colporraphy rpr cystocele w/cysto VAGINAL ANTERIOR REPAIR CYSTOCELE, UTERINE PROLAPSE, URINARY INCONTINENCE 09/01/2021 7:31 AM [facility] Start: 09-01-2021 End: 09-01-2021 HYSTERECTOMY VAGINAL HYSTERECTOMY VAGINAL CYSTOCELE, UTERINE PROLAPSE, URINARY INCONTINENCE 09/01/2021 7:31 AM [facility] Start: 09-01-2021 End: 09-01-2021 Ndsc njx implt matrl urt&/bldr nck URETHRAL IMPLANT INJECTION CYSTOCELE, UTERINE PROLAPSE, URINARY INCONTINENCE 09/01/2021 7:31 AM [facility] Start: 04-26-2021 ADVANCE DIRECTIVE DISCUSSION ADVANCE DIRECTIVE DISCUSSION [facility] Start: 04-22-2021 COVID-19 VACCINE (4 - Booster for Moderna series) COVID-19 VACCINE (4 - Booster for Moderna series) [facility] Start: 12-25-2020 Influenza vaccination INFLUENZA (#1) [facility] Start: 11-27-2020 COVID-19 VACCINE (3 - Booster for Moderna series) COVID-19 VACCINE (3 - Booster for Moderna series) [facility] Start: 08-01-2003 BONE DENSITY BONE DENSITY [facility] Start: 08-01-2003 Pneumococcal Vaccine : 65+ (1 of 1 - PCV) Pneumococcal Vaccine: 65+ (1 of 1 - PCV) [facility] Start: 08-01-2003 PNEUMOCOCCAL: 65+ (1 - PCV) PNEUMOCOCCAL: 65+ (1 - PCV) [facility] Start: 08-01-2003 PNEUMOVAX AGE 65 AND OVER WITH 5YR LOOKBACK (#1) PNEUMOVAX AGE 65 AND OVER WITH 5YR LOOKBACK (#1) [facility] Start: 08-01-2003 Screening for osteoporosis Bone Density Screening [facility] Start: 1998 RSV Vaccine (1 - 1-d ose 60+ series) RSV Vaccine (1 - 1-dose 60+ series) [facility] Start: 1988 SHINGRIX VACCINE (1 of 2) SHINGRIX VACCINE (1 of 2) [facility] Start: 08-01-1983 DIABETES SCREEN DIABETES SCREEN [facility] Start: 08-01-1983 Diabetes Screening Diabetes Screenin g [facility] Start: 1957 DTaP/Tdap/Td vaccine (1 - Tdap) DTaP/Tdap/Td vaccine (1 - Tdap) [facility] Start: 1957 Urine microalbumin profile DTAP,TDAP,TD (1 - Tdap) [facility] Start: 1956 Creatinine measurement Creatinine [facility] Start: 1956 Potassium [Moles/volume] in Serum or Plasma Potassium [facility] End: 09-01-2021 INITIATE PACU OXYGEN THERAPY PROTOCOL Initiate PACU Oxygen Therapy Protocol Respiratory Care Routine Continuous until discontinued starting 09/01/2021 [facility] Phone: Comment on above: Continuous until dis continued starting 09/01/2021 End: 09-03-2023 CHRISTINA SCREENING CHRISTINA SCREENING Radiology Routine Encounter for screening mammogram for breast cancer 1 Occurrences starting 08/04/2022 until 09/03/2023 [facility] Work Phone: Comment on above: 1 Occurrences starti ng 08/04/2022 until 09/03/2023 End: 09-13-2023 CHRISTINA SCREENING W LEANNA CHRISTINA SCREENING W [facility] Radiology Routine Encounter for screening mammogram for breast cancer 1 Occurrences starting 08/14/2022 until 09/13/2023 [facility] Work Phone: Comment on above: 1 Occurrences starti ng 08/14/2022 until 09/13/2023 Oxygen therapy [place] [place] Initiate Oxygen Therapy Protocol Respiratory Care Routine Daily until discontinued starting 09/01/2021 [facility] Phone: Comment on above: Daily until disconti nued starting 09/01/2021 End: 09-01-2021 , urine POCT , urine POCT Point of Care Testing Routine One Time for 1 Occurrences starting 09/01/2021 until 09/01/2021 [facility] Phone: Comment on above: One Time for 1 Occur rences starting 09/01/2021 until 09/01/2021 End: 08-15-2022 Screening mammography [facility] CHRISTINA SCREENING Radiology Routine Encounter for screening mammogram for breast cancer Fibrocystic breast changes, left 1 Occurrences starting 07/16/2021 until 08/15/2022 [facility] Work Phone: Comment on above: 1 Occurrences starti ng 07/16/2021 until 08/15/2022 Surgical Pathology Surgical Path ology Lab Routine Release Upon Ordering for 1 Occurrences starting 09/01/2021 [facility] Phone: Comment on above: Release Upon Orderin g for 1 Occurrences starting 09/01/2021 End: 09-01-2021 SURGICAL PATHOLOGY REPORT SURGICAL PATHOLOGY REPORT Lab Routine Once for 1 Occurrences starting 09/01/2021 until 09/01/2021 [facility] Phone: Comment on above: Once for 1 Occurrenc es starting 09/01/2021 until 09/01/2021 [facility] Immunizations Immunization Date Immunization Notes Care Provider [facility] 02-12-2023 influenza, high dose seasonal, preservative-free Sidney Moore Other [facility] Other 02-10-2022 influenza virus vaccine, split virus (incl. purified surface antigen) Sidney Moore Other [facility] Other 02-10-2022 influenza virus vaccine, unspecified formulation Damián Alexander APRN.[facility] Work Phone: [facility] 11-28-2021 COVID-19 Vaccine Moderna - Documentation Purposes Only Sidney Moore Other [facility] Other 02-25-2021 COVID-19 Vaccine Moderna - Documentation Purposes Only Brown Bush Other [facility] Other 01-07-2021 influenza virus vaccine, split virus (incl. purified surface antigen) Sidney Moore Other [facility] Other 06-27-2020 COVID-19 Moderna Brown Bloom n Other [facility] Other 05-31-2020 COVID-19 Moderna [facility] Other [facility] Other 01-08-2020 influenza virus vaccine, split virus (incl. purified surface antigen) Sidney Moore Other [facility] Other 02-01-2018 influenza virus vaccine, split virus (incl. purified surface antigen) Sidney Moore Other [facility] Other 02-04-2017 influenza virus vaccine, split virus (incl. purified surface antigen) Sidney Moore Other [facility] Other 09-01-2016 diphtheria, tetanus toxoids and acellular pertussis vaccine, unspecified formulation Sidney Moore Other [facility] Other 01-21-2016 influenza virus vaccine, split virus (incl. purified surface antigen) Sidney Moore Other [facility] Other 03-06-2015 pneumococcal conjuga te vaccine, 13 valent Sidney Moore Other [facility] Other 03-04-2015 tetanus and diphther ia toxoids, adsorbed, preservative free, for adult use (5 Lf of tetanus toxoid and 2 Lf of diphtheria toxoid) Sidney Moore Other [facility] Other 02-14-2014 tetanus and diphther ia toxoids, adsorbed, preservative free, for adult use (5 Lf of tetanus toxoid and 2 Lf of diphtheria toxoid) Sidney Moore Other [facility] Other 11-15-2013 pneumococcal Conjuga te, unspecified formulation; 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: [Need for prophylactic vaccination against Streptococcus pneumoniae (pneumococcus)] Sidney Moore Other [facility] Other 11-15-2013 pneumococcal polysaccharide vaccine, 23 valent Sidney Moore Other [facility] Other 01-27-2010 influenza virus vaccine, split virus (incl. purified surface antigen) [facility] Other [facility] Other Payers Date Payer Category Payer Medicare [id number] 2021 Medicare AETNA MEDICARE A ETNA MEDICARE PPO [id number] 2021-Present [phone] [address] [place] [address] PPO [id number] 2021 Medicare [id number] 2017 Medicare [id number] 1959 Medicare [id number] 1938 Unknown [id number] 1938 Unknown [id number] 1938 Unknown [id number] 1938 Unknown [id number] 1938 Unknown [id number] 1938 Unknown [id number] 1940 Unknown [id number] 1940 Unknown [id number] 1938 Unknown [id number] 1940 Unknown [id number] 1940 Unknown [id number] Medicare [id number] Medicare [id number] Social History Date Type Detail Facility Start: 05-31-2018 End: 08-19-2021 Tobacco smoking status NJIS Ex-smoker [facility] End: 04-26-1970 History of tobacco use Current smoker [facility] Start: 05-31-2018 End: 08-19-2021 Tobacco use and exposure Smokeless tobacco non-user [facility] Start: 07-16-2020 End: 08-14-2022 Alcohol intake Current non-drinker of alcohol (finding) [facility] Start: 05-31-2018 History SDOH Alcohol Comment very rare [facility] Start: 1940 Sex Assigned At Not on file C [facility] Start: 09-01-2021 End: 01-15-2022 Alcohol intake Ex-drinker (finding) [employer] Work Phone: Start: 08-19-2021 Tobacco Comment 1970 quit Brenna cruz Work Phone: Start: 08-09-2021 End: 01-15-2022 Exposure to SARS-CoV-2 (event) Not sure [employer] Phone: Start: 08-14-2022 Sex Assigned At [facility] [employer] Other End: 04-26-1972 History of tobacco use Cigarette Smoker [facility] Start: 08-14-2022 History of Social function [facility] National Score (1-100), lower number is lower risk 64 [facility] Medical Equipment Procedure Code Equipment Code Equipment Origin al Text Equipment Identifier Dates System Bulking Proc Bulkamid Urethral - [id number] Start: 09-01-2021 Comment on above: Description: Teddy willard and placed on sterile field System Bulking Proc Bulkamid Urethral - [id number] Start: 01-15-2022 Comment on above: Description: Teddy willard with surgeon Clinical Notes 01-21-2021 to 09-13-2023 Telephone Encounter - Damián Alexander APRN.CNP - 09/13/2023 1:37 PM EDTTelephone Encounter - Damián Alexander APRN.CNP - 09/13/2023 1:37 PM EDT Note Date & Type Note Facility 09-13-2023 Telephone encounter Note Form atting of this note might be different from the original. 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 Brittaney will no longer make drive to [place] for her care. I gave my condolences and if any assistance needed in future to contact me [facility] 09-13-2023 Miscellaneous Notes Formattin g of this note might be different from the original. 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 Brittaney will no longer make drive to [place] for her care. I gave my condolences and if any assistance needed in future to contact me Patient called stating that her sister passed last week and they always had appointments with Damián together and she would like to discuss with you. Patient can be reached at [phone]. Thanks documented in this encounter [facility] 09-13-2023 Telephone encounter Note Form atting of this note might be different from the original. Patient called stating that her sister passed last week and they always had appointments with Damián together and she would like to discuss with you. Patient can be reached at [phone]. Thanks [facility] 06-04-2023 Evaluation note Encounter Date Diagnosis Assessment Notes May, Hypercalcemia (ICD-10 - E83.52) [facility] Other 12-20-2023 Evaluation note* Encounter Date Diagnosis Assessment Notes Treatment Notes Treatment Clinical Notes Mar, Mucopurulent chronic bronchitis (ICD-10 - J41.1) [facility] Other 10-20-2023 Evaluation note* Encounter Date Diagnosis [...] use, the patient reduces the risk for CT, CVA, HTN, cardiac dysrhythmias and sudden cardiac [...] mammogram for breast cancer (ICD-10 - Z12.31) [facility] Other 09-05-2023 Evaluation note* Encounter Date Diagnosis [...] to resolve Dec, Dysuria (ICD-10 - R30.0) [facility] Other 08-02-2023 Evaluation note* Encounter Date Diagnosis [...] use, the patient reduces the risk for CT, CVA, HTN, cardiac dysrhythmias and sudden cardiac [...] w/ artificial tears. 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 Lao, We are pleased to [...] report will be kept on file at [facility] as part of your permanent medical record and are available for your continuing care. Thank you for allowing us to help in meeting your health care needs. Sincerely, Dr. 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 Retired female with history of Right breast cancer diagnosed in 1970 returns to the [facility] today her sister (Briana) for annual exam [...] PTEN, TP53, CDH1, STK11,PALB2, CHEK2, ELISABETH) Per [facility] High Risk Care Path recommendations, screening breast MRI may be considered for women underthe age of 65 with remaining breast tissue in the following situations: - Age at breast cancer diagnosis under 50 - Mammographically dense tissue (BI-RADS category 3 or 4) - History of invasive lobular breast cancer She doesn't meet [facility] care path guidelines for MRI of breast. [...] which included preparing to see the patient, [id number] patient care, completing clinical documentation, obtaining and/or reviewing separately obtained history, performing a medically appropriate examination, counseling and educating the pat ient/family/caregiver, ordering medications, tests, or procedures, communicating results to the patient/family/caregiver, and care coordination (not separately reported). Damián Alexander APRN.CNP Medical Breast Specialist [facility] Nurse Practitioner CC: documented in this encounterPark[facility] Health04-21-2023 Nurse Note* Argelia Muhammad Ma - 08/14/2022 [...] rare Drug use: No documented in this encounterParkview Health03-27-2023 Evaluation note* Encounter Date Diagnosis Assessment Notes Treatment Notes Treatment Clinical Notes Jun, Mild intermittent asthma without complication (ICD-10 - J45.20) Jun, JUNIE (obstructive sleep apnea) (ICD-10 - G47.33) [facility] Other 03-16-2023 Evaluation note* Encounter Date Diagnosis [...] which are reviewed at the office visit. [facility] Other 09-16-2022 Hospital Discharge instructions* Discharge Instructions* Veronique Martinez, CHRIS - 01/09/2022 8:23 AM EDT Images from [...] dishwashing) Special Considerations) -Short local travel (restaurant, denominational) -Long distance travel > 1.5 hours (*See [...] office with any questions or concerns at [phone]. If during office hours, your issue may require an appointment. If after hours, the answering service will connect you with the physician Coke Oven Patcher. If you are concerned that your issue may be emergent, PLEASE CALL FIRST. Many issues may be resolved over the phone and avoid an unnecessary and expensive ER visit. If you truly have an emergency related to the surgery and call first: *You will be directed to the hospital ER in which you had your surgery. [facility] primarily or [facility] rarely. [facility] patients may be asked to report to [facility] if Dr. Blank s on-call partner is assuming responsibility. Calling first helps to expedite your care and avoids an unnecessary and expensive ambulance transfer to [facility]. Dial 911 or go to your closest ER if your emergency is related to a potential heart attack or stroke. 2 DISCHARGE MEDICINES [place] 325/5mg tablets or alternative narcotic. Take 1-2 tablets by mouth every 4-6 hours as needed for pain. Per [facility] Board of Pharmacy laws, only 1 week of narcotics may be prescribed at a time. Do not take extra Tylenol (Acetaminophen) orally as [place] already contains the medicine. May take 500mg orally every 4-6 hours if off of [place]. * Ibuprofen 400-800mg is safe to take. [...] short term in order to heal successfully half-way. Once you have fully recovered, you may focus on enjoying your life. Keep in mind, you will continue to heal for 6-12 months after surgery, so use common sense to protect your surgery (avoid repetitive heavy lifting, constipation, chronic pelvic strain.) In particular, if you had a hysterectomy, you may have both physical and emotional effects that maybe brief or termite control service representative. After hysterectomy, periods will stop and a [...] blood clots in the legs or lungs, CT, or stroke. Elderly patients over the age [...] you every step of the way. 5 [facility] The [...] FAX COMPLETED FORM TO: Jus Blank, FAX: [phone] (Patient Sticker Here) 6 BLADDER DRAINAGE FOR [...] if you were at the 6 hour intervalbefore bed, start at this interval routine in [...] spout open. A commercially prepared urinary appliance shirt cleaner may also be used as instructed. [...] SPECIAL INSTRUCTIONS Call Dr. Blank's office at [phone] on a weekly basis to report to [...] SPECIAL INSTRUCTIONS Call Dr. Blank's office at [phone] on a weekly basis to report on [...] Voided Amount Post Void Residual Amount 15 [facility] HOME SUPPLY LIST Please contact your local pharmacy or medical supply store regarding supplies for the type of catheter you may have. Transurethral Galindo catheter 1 Night bag and 1 Day bag with leg strap Lubricating jelly Alcohol wipes Measuring had for toilet seat 5 50 mL syringes Self-Intermittent Catheterization Supplies: 100 #11-Ugandan female catheters (hydrophilic if possible) Lubricating jelly [...] Counter at their 3 locations. [address] [place] [address] [address] [place] [address] [place] [address] [place] [address] You had elevated BP during your stay. Per Dr Blank's Resident you can restart your BP meds as prescribed by your primary care doctor. Ensure close follow up with PCP to ensure your pressure is under control. Monitor for signs of hypertensive emergency/urgency 16 5 [facility] The [...] Signature Date FAX COMPLETED FORM TO: Jus BlankDO FAX: [phone] documented in this encounterBON [facility] Work Phone: 1(772) 115-287305-09-2022 History of Present illness Narrative* Cici Odell DO - 09/01/2021 9:07 AM EDT [employer]OTH SHRINKING TESTER Resident Interval Note H&H pending @ 1100 Patient can be discharged home once she is able to ambulate, tolerate water/crackers and have pain well controled with PO pain medications. Please perfect serve resident below with any questions regarding this patient. Cici Alvarenga DO CLOTH SHRINKING TESTER Resident [facility] 09/01/2021, 9:08 AM * Azeb Ascencio RN - 08/19/2021 3:56 PM EDT DAY OF SURGERY/PROCEDURE GUIDELINES As a patient at the [facility], you can expect quality medical and nursing [...] morning of your surgery/procedure (Hibiclens if directed) Hope your teeth, but do not swallow any [...] during surgery and recovery. documented in this [facility] Work Phone: 1(269) 696-850705-03-2022 Hospital Discharge instructions* Instructions* Mayra Nunez RN - 08/26/2021 Images from the original note were not included. 5 [facility] The [...] COMPLETED FORM TO: Jus Blank DO FAX: [phone] POSTOPERATIVE PATIENT INSTRUCTIONS MAJOR & MINOR SURGICAL [...] dishwashing) Special Considerations) -Short local travel (restaurant, denominational) -Long distance travel > 1.5 hours (*See [...] office with any questions or concerns at [phone]. * If during office hours, your issue may require an appointment. If after hours, the answering service will connect you with the physician Coke Oven Patcher. * If you are concerned that your issue may be emergent, PLEASE CALL FIRST. ; Many issues may be resolved over the phone and avoid an unnecessary and expensive ER visit. ; If you truly have an emergency related to the surgery and call first: *You will be directed to the hospital ER in which you had your surgery. [facility] primarily or [facility] rarely. [facility] patients may be asked to report to [facility] if Dr. Blank s on-call partner is assuming responsibility. ; Calling first helps to expedite your care and avoids an unnecessary and expensive ambulance transfer to [facility]. Dial 911 or go to your closest ER if your emergency is related to a potential heart attack or stroke. 2 DISCHARGE MEDICINES * Farmington 325/5mg tablets or alternative narcotic. Take 1-2 tablets by mouth every 4-6 hours as needed for pain. - Per [place] Board of Pharmacy laws, only 1 week of narcotics may be prescribed at a time. - Do not take extra Tylenol (Acetaminophen) orally as [place] already contains the medicine. - May take 500mg orally every 4-6 hours if off of [place]. * Ibuprofen 400-800mg is safe to take. [...] short term in order to heal successfully half-way. Once you have fully recovered, you may focus on enjoying your life. Keep in mind, you will continue to heal for 6-12 months after surgery, so use common sense to protect your surgery (avoid repetitive heavy lifting, constipation, chronic pelvic strain.) In particular, if you had a hysterectomy, you may have both physical and emotional effects that maybe brief or termite control service representative. After hysterectomy, periods will stop and a [...] blood clots in the legs or lungs, CT, or stroke. 4. Elderly patients over the [...] you every step of the way. 5 [facility] The [...] Signature Date FAX COMPLETED FORM TO: Jus PruittDO myriam FAX: [phone] (Patient Sticker Here) 6 BLADDER DRAINAGE FOR [...] spout open. A commercially prepared urinary appliance shirt cleaner may also be usedas instructed. * [...] INSTRUCTIONS * Call Dr. Blank's office at [phone] on a weekly basis to report to [...] INSTRUCTIONS * Call Dr. Blank's office at [phone] on a weekly basis to report on [...] Voided Amount Post Void Residual Amount 15 [facility] HOME SUPPLY LIST Please contact your local pharmacy or medical supply store regarding supplies for the type of catheter you may have. Transurethral Galindo catheter 1 Night bag and 1 Day bag with leg strap Lubricating jelly Alcohol wipes Measuring had for toilet seat 5 50 mL syringes Self-Intermittent Catheterization Supplies: 100 #11-Ugandan female catheters (hydrophilic if possible) Lubricating jelly [...] Pharmacy Counter at their 3 locations. [address] [place] [address] [place] [address] [place] [address] Store hours: Wednesday through Wednesday 9 AM to 6 PM Wednesday 9 AM to 1 PM Wednesday closed 16 documented in this encounterOhio State Health SystemJ. Hilburn Work Phone: [phone]) 313-156903-29-2022 Miscellaneous Notes* Letter - Mammography Coordinator - 07/22/2021 11:32 AM EDT July 22, 2021 PID: [id number] Jessica Lao [address] [place] [address] Dear Ms. Lao, We are pleased to [...] report will be kept on file at [facility] as part of your permanent medical record and are available for your continuing care. Thank you for allowing us to help in meeting your health care needs. Sincerely, Dr. Keating Interpreting Radiologist [facility] (Normal over 40) documented in this encounterParkview Health03-29-2022 History of Present illness Narrative* Damián Alexander APRN.SCARLETT - 07/22/2021 10:53 AM EDT MEDICAL BREAST PATIENT NAME: Jessica Lao REASON FOR VISIT: Annual Exam and Mammogram HISTORY of PRESENT ILLNESS: Jessica Lao is a 80 year old year old postmenopausal Retired female with history of Right breast cancer diagnosed in 1970 returns to the [facility] [place] today her sister (Briana) for annual exam and mammogram. She is an established patient of mine who I last saw on 07/16/20 for [...] which included preparing to see the patient, [id number] patient care, completing clinical documentation, obtaining and/or [...] Health Nurse Practitioner CC: documented in this encounterParkview Health03-29-2022 Nurse Note* Argelia Muhammad Ma - 07/22/2021 10:42 AM EDT Last mammogram on: 07/16/20 Results: see report Is the patient active on [employer]arm[employer] Yes Electronically Signed By: Argelia Muhammad Ma [...] see report Is the patient active on [employer] Yes Electronically Signed By: Argelia Muhammad Ma [...] rare Drug use: No documented in this encounterParkview Health03-29-2022 Instructions* Patient Instructions* Argelia Muhammad Ma - [...] TP53, CDH1, STK11, PALB2, CHEK2, ELISABETH) Per [facility] High Risk Care Path recommendations, screening breast [...] male breast cancer you are of Ashkenazi [place] descent HEALTHY LIFESTYLE MANAGEMENT (per NCCN Guidelines [...] include but are not limited to: The [facility] Comprehensive Breast Cancer Program - my.[facility].org/services/nwrkdw-wsskpa-wzrhkki [facility] - barbaranmkiran.org Bur[employer] Cancer Society - cancer.org RAFI Breast Cancer Foundations - jdbcfoundation.org FORCE - facingourrisk.org Bright Damon - brightpink.org Young Survival Coalition - youngsurvival.org 4th Misael - 4thangel.org [facility] - touchedbycancer.org ([place] and [place]) The [facility]ort[facility] - theAgent Acetorycenter.org ([place] area) [facility] - yellowbrickplace.org ([place] area) [facility] - stewartscaringplace.org ([place] area) If you would like to compliment one of our caregivers you encountered today, you may do so at www.caregivercelebrations.[email or web address]. Thank you ! documented in this encounterParkview Health03-28-2022 Evaluation note* Encounter Date Diagnosis Assessment Notes [...] to avoid GERD induced cough at night [facility] Other 03-02-2022 NoteOPERATIVE NOTE PREOPERATIVE DIAGNOSIS: Enlarging [...] or questions. CC: Dr. Zion Moore : [facility] Signed and Approved by: DR ESCOBAR VICTORIA . 06/27/2021 07:54:00[facility]02-11-2022 NoteChief Complaint consultation for lipoma [facility] Staff 80 year old female presents on [...] plan excisional biopsy under local anesthesia, at [facility]; informed consent obtained. Follow-up No qualifying [...] mcg-50 mcg Powder, 1 inh, Inhalation, BID [place] Thyroid 60 mg Tab aspirin 81 mg [...] 06/27/2020 Recorded SARS-CoV-2 (COVID-19) Ad26 vaccine 05/31/2020 RecordedWood County HospitalComment on above:Result Comment: Electronically Signed By: AAKASH FISH, Escobar Whiting\Date and Time Signed: 06/06/21 14:09 [id number] Evaluation note * Encounter Date Diagnosis Assessment Notes Treatment Notes Treatment Clinical Notes Dec, JUNIE (obstructive sleep apnea) (ICD-10 - G47.33) New CPAP machine Dec, Mild intermittent asthma without complication (ICD-10 - J45.20) [facility] Other Evaluation note* Diagnosis Encounter for screening mammogram for breast cancer- Primary Fibrocystic breast changes, left documented in this encounter [facility]* Diagnosis Fibrocystic breast changes, left- Primary Personal history of breast cancer Personal history of malignant neoplasm of breast Family history of breast cancer in sister Family history of malignant neoplasm of breast Encounter for screening mammogram for breast cancer documented in this encounter [facility]* Diagnosis Post-op pain- Primary Other acute postoperative pain documented in this encounter [employer] Phone: evaluation note* Diagnosis Family history of breast cancer in sister- Primary Family history of malignant neoplasm of breast Encounter for screening mammogram for breast cancer documented in this encounter [facility]* Diagnosis Fibrocystic breast changes, left- Primary Personal history of breast cancer Personal history of malignant neoplasm of breast Family history of breast cancer in sister Family history of malignant neoplasm of breast Encounter for screening mammogram for breast cancer documented in this encounter [facility] noteNo InformationNort Percentil Other Hisjalk general Narrative - Reported* Type Description Date Medical History asthma Medical History Hypertension Medical History seasonal allergies Medical History breast cancer Medical History HYPOTHYROID Medical History JUNIE Medical History diabetes mellitus Surgical History right mastectomy 1969 Surgical History cholecystectomy 1973 Surgical History left knee surgery 1989 Hospitalization History as above [facility] Other Hisueaz general Narrative - Reported* Type Description Date Medical History asthma Medical History Hypertension Medical History seasonal allergies Medical History breast cancer Medical History HYPOTHYROID Medical History JUNIE Medical History diabetes mellitus Surgical History right mastectomy 1969 Surgical History cholecystectomy 1973 Surgical History left knee surgery 1989 Surgical History hysterectomy 08/2021 Surgical History bladder suspension, unspecified 08/2021 Hospitalization History as above [facility] Other Reason for referral (narrative)* Diagnostic Procedure Only (Routine) - Authorized Specialty Diagnoses / Procedures Referred By Carlo t Referred To Contact [facility] Diagnoses Encounter for screening mammogram for breast cancer Fibrocystic breast changes, left Procedures CHRISTINA SCREENING SCREENING MAMMOGRAPHY BI 2-VIEW BREAST INC Damián Hayes, OLAMIDE.SERVICE RIG OPERATOR [address] [place] [address] [facility] [address] [place] [address] Referral ID Status Reason Start Date Expiration Date Visits Requested Visits Authorized [id number] Authorized Auto-Generat ed Referral 07/16/2021 08/15/2022 1 1 [facility] for referral (narrative)* Diagnostic Procedure Only (Routine) - Authorized Specialty Diagnoses / Procedures Referred By Carlo t Referred To Contact [facility] Diagnoses Encounter for screening mammogram for breast cancer Procedures CHRISTINA SCREENING SCREENING MAMMOGRAPHY BI 2-VIEW BREAST INC CAD Damián Alexander APRN.SERVICE RIG OPERATOR [address] [employer] [place] [address] [facility] [address] [place] [address] Referral ID Status Reason Start Date Expiration Date Visits Requested Visits Authorized [id number] Authorized Auto-Generat ed Referral 08/04/2022 09/03/2023 1 1 [facility] for referral (narrative)* Diagnostic Procedure Only (Routine) - Pending Review Specialty Diagnoses / Procedures Referred By Carlo arreola Referred To Contact [facility] Diagnoses Encounter for screening mammogram for breast cancer Procedures CHRISTINA SCREENING W LEANNA SCREENING DIGITAL BREAST TOMOSYNTHESIS BI SCREENING MAMMOGRAPHY BI 2-VIEW BREAST INC CAD Damián Alexander APRN.SERVICE RIG OPERATOR [address] [employer] [place] [address] [facility] [address] [place] [address] Referral ID Status Reason Start Date Expiration Date Visits Requested Visits Authorized [id number] Pending Review Auto-Generat ed Referral 08/14/2022 09/13/2023 1 1 [facility] for visit Narrative* Auth/Cert Specialty Diagnoses / Procedures Referred By Carlo t Referred To Contact Diagnoses Cystocele affecting Uterine prolapse Urinary incontinence CYSTOCELE, UTERINE PROLAPSE, URINARY INCONTINENCE Procedures GA OFFICE/OUTPT VISIT,PROCEDURE ONLY GA ANTERIOR COLPORRAPHY RPR CYSTOCELE W/CYSTO GA ENDOSCOPIC INJECTION/IMPLANT GA LAPAROSCOPY W TOT HYSTERECTUTERUS <=250 GRAM W TUBE/OVARY HYSTERECTOMY VAGINAL CYSTOCELE REPAIR CY[place] [address] [place] [address] [employer] [address] [place] [address] Referral ID Status Reason Start Date Expiration Date Visits Re quested Visits Authorized 1 1 [employer] Phone: Summary Purpose Family History No Family History Records FoundNo Family History Records FoundNo Family History Records FoundNo Family History Records FoundNo Family History Records Found Advance Directives No Advanced Directives Records FoundDocuments on File Type Date Recorded Patient Collision Worker Expl anation ACP-Advance Directive 09/01/2021 5:57 AM Li ving Will ACP-Power of Construction Contractor 09/01/2021 5:57 AM AC P-Power of Construction Contractor Additional Source Comments Source Comments (unrecognize d section and content) In the event this informatio n is protected by the Federal Confidentiality of Alcohol and Drug Abuse Patient Records regulations: The Federal rules restrict any use of the information to criminally investigate or prosecute any alcohol or drug abuse patient.[facility] HealthIn the event this information is protected by the Federal Confidentiality of Alcohol and Drug Abuse Patient Records regulations: The Federal rules restrict any use of the information to criminally investigate or prosecute any alcohol or drug abuse patient.[facility] HealthIn the event this information is protected by the Federal Confidentiality of Alcohol and Drug Abuse Patient Records regulations: The Federal rules restrict any use of the information to criminally investigate or prosecute any alcohol or drug abuse patient.[facility] HealthIn the event this information is protected by the Federal Confidentiality of Alcohol and Drug Abuse Patient Records regulations: The Federal rules restrict any use of the information to criminally investigate or prosecute any alcohol or drug abuse patient.[facility] HealthIn the event this information is protected by the Federal Confidentiality of Alcohol and Drug Abuse Patient Records regulations: The Federal rules restrict any use of the information to criminally investigate or prosecute any alcohol or drug abuse patient.[facility] HealthIn the event this information is protected by the Federal Confidentiality of Alcohol and Drug Abuse Patient Records regulations: The Federal rules restrict any use of the information to criminally investigate or prosecute any alcohol or drug abuse patient.[facility] HealthIn the event this information is protected by the Federal Confidentiality of Alcohol and Drug Abuse Patient Records regulations: The Federal rules restrict any use of the information to criminally investigate or prosecute any alcohol or drug abuse patient.[facility] INFORMATION SOURCE (unrecogn ized section and content) DATE CREATED AUTHOR 07/20/2021 [facility] DATE CREATED AUTHOR AUTHOR'S ORGANIZ ATION 01/25/2022 [facility] DATE CREATED AUTHOR AUTHOR'S ORGANIZ ATION 03/09/2022 [facility] DATE CREATED AUTHOR AUTHOR'S ORGANIZ ATION 07/13/2023 [facility] EP[facility] DATE CREATED AUTHOR AUTHOR'S ORGANIZ ATION 09/15/2023 [facility] Reason for Visit (unrecogniz ed section and content) Reason Comments Established Patient Annual breast exam w ith mammogram; no breast concerns at this time; she is scheduled for a hysterectomy September 01 for bladder and uterus prolapse Specialty Diagnoses / Procedures Referred By Carlo arreola Referred To Contact Diagnoses Urinary incontinence, unspecified type Urinary incontinence, unspecified type [R32] Procedures GA ENDOSCOPIC INJECTION/IMPLANT CYSTOSCOPY WITH BULKAMID INJECTION Jus Blank, [address] [facility] [address] [place] [address] [facility] [address] [place] [address] Referral ID Status Reason Start Date Expiration Date Visits Re quested Visits Authorized [id number] 1 1 Reason Comments Established Patient Annual breast exam w ith mammogram; no breast concerns at this time; working on weight Reason Comments Appointment Returning Patient's Call Continued care closer to home Ordered Prescriptions (unrec ognized section and content) [...] Wed09/01/21 at 0630, Antimicrobial Indications: Surgical Prophylaxis 0630 (Due) phenazopyridine (PYRIDIUM) tablet 200 mg (COMPLETED) [...] 20 mL/lumen, Pre-op (day of surgery) 0900 (Due)2099 (Due) sodium chloride flush 0.9 % injection [...] Fischer RN)0730 (NoRateChange - Provider: Bassam Sandy MD)09 (Paused - Provider: Bassam Sandy MD - Comment: Switch to gravity)906 (Restarted - Provider: Bassam Sandy MD) PRN [...] 920 (Given - Provid er: Veronique Martinez RN)09 (Given - Provider: Veronique Martinez RN) ipratropium-albuterol [...] start, Pre-op (day of surgery) lidocaine-EPINEPHrine 1 %-1:410243 injection (CANCELED) PRN, Starting on Wed09/01/21 at 0806, Until Wed09/01/21 at 0909, Intra-op 0806 (Given - Provid er: Jus Blank, DO - Comment: verified and placed on field) [...] only 0920 (Given - Provid er: Veronique aMrtinez RN) oxyCODONE-acetaminophen (PERCOCET) 5-325 MG per tablet [...] Order 08/30/2021 08/31/2021 09/01/2021 bupivacaine-EPINEPHrine (MARCAINE-w/EPINEPHRINE) 0.5% -1:[id number] injection 1 dose, Starting on Wed09/01/21 at 0705, Until Wed09/01/21 at 1914, Reynoso, Ami: cabinet override, Reynoso, Ami: cabinet override 0715 (Due) ceFAZolin (ANCEF) IVPB Starting on Wed09/01/21 at 0621, For 1 dose, Manisha Fischer: cabinet override 0630 (Due) ferric subsulfate (ASTRINGYN) 259 MG/GM solution Starting on Wed09/01/21 at 0653, For 1 dose, Edgardo, Ami: cabinet override 0700 (Due) lidocaine-EPINEPHrine 1 %-1:902730 injection 1 dose, Starting on Wed09/01/21 at [...] dose, Starting on Wed09/01/21 at 0653, Until 09/01/21 at 1859, Reynoso, Ami: cabinet override, Reynoso, [...] Care Teams (unrecognized sec tion and content) Door Hanger Relationship Specialty Start Date End Date Sidney Moore [address] [place] [address] PCP - General Internal Medicine 09/01/21 Door Hanger Relationship Specialty Start Date End Date Sidney MooreDO [address] [place] [address] PCP - General Internal Medicine [...] BE BASED ON THE PRIMARY CLINICAL RECORDS. [facility] [employer] [facility]. provides no warranty or guarantee of the accuracy or completeness of information in this document.
[2023-11-16 11:23] LABS: Basophils Percent Auto 0.2 % (0.2-2.0); Eosinophils Absolute Auto 0.1 10^3/uL (0.0-0.7); Hemoglobin 12.6 g/dL (12.0-16.0); Immature Granulocytes Abs Auto 0.04 10^3/uL (0.00-0.03); Immature Granulocytes Pct Auto 0.5 % (0.0-0.5); Lymphocytes Absolute Auto 1.6 10^3/uL (1.2-3.8); Mean Corpuscular HGB Conc 33.2 g/dL (29.9-35.2); Mean Corpuscular Hemoglobin 31.7 pg (26.7-34.0); Mean Corpuscular Volume 95.5 fL (81.0-99.0); Mean Platelet Volume 9.2 fL (9.5-13.5); Monocytes Absolute Auto 0.5 10^3/uL (0.3-0.8); Monocytes Percent Auto 5.5 % (1.7-12.0); Neutrophils Absolute Auto 6.3 10^3/uL (1.4-6.5); Neutrophils Percent Auto 73.8 % (43.0-75.0); Platelet Count 249 10^3/uL (150-450); Red Blood Count 3.98 10^6/uL (4.20-5.40); Red Cell Distribution Width 12.5 % (11.0-15.0); White Blood Count 8.6 10^3/uL (4.0-11.0)
[2023-11-16 11:53] LABS: Alanine Aminotransferase 19 U/L (14-59); Albumin Level 3.6 g/dL (3.4-5.0); Alkaline Phosphatase 54 U/L (46-116); Anion Gap 7.2; Aspartate Amino Transferase 15 U/L (15-37); BUN Creatinine Ratio 21.1; Bilirubin Total 0.4 mg/dL (0.2-1.0); Calcium 9.9 mg/dL (8.5-10.1); Carbon Dioxide 31.3 mmol/L (21.0-32.0); Chloride 102 mmol/L (98-107); Estimated GFR (African America >60 (>=60); Estimated GFR (Non-African Ame >60 (>=60); Globulin 3.5 g/dL; Glucose 101 mg/dL (74-106); Potassium 4.5 mmol/L (3.5-5.1); Sodium 136 mmol/L (136-145); Thyroid Stimulating Hormone 0.306 uIU/mL (0.358-3.740); Total Protein 7.1 g/dL (6.4-8.2)
[2023-11-16 12:11] LABS: Creatinine Urine Random 31.45 mg/dL (20.00-300.00); Microalbumin Urine Random <1.3 mg/dL (<=30.0)
[2023-11-16 12:16] LABS: Estimated Average Glucose 103 mg/dL; Glycohemoglobin A1C 5.2 % (4.5-6.2)
== END 2023-11-16 11:02 | disposition home or self-care (01) ==
LOC: LAB 11:01
PROVIDERS: PCP Internal Medicine; Visit Provider Internal Medicine
DX: E11.65 Type 2 diabetes mellitus with hyperglycemia (principal); I10 Essential (primary) hypertension; M79.89 Other specified soft tissue disorders
CPT/HCPCS: 36415; 80053; 82043; 82570; 83036; 84443; 85025